=== PATIENT | male | born 1960 | race Caucasian/White ===

== ENCOUNTER 2019-12-07 18:52 | Inpatient (IN) | payer MEDICAID ==
[~2019-12-07] VITALS: Ht 182.9 cm; Wt 129.7 kg
[2019-12-07 18:52] VITALS: BP 90/59
--- NOTE | 2019-12-07 18:52 | NUR ---
TACOS ROSARIO FROM [facility] [place], TRANSFERRED TO BED VIA GURNEY
[2019-12-07] MEDS ORDERED: NACL 0.9% 1,000 ML IV ONE (19:00)
[2019-12-07] MEDS ORDERED: PIPERACILLIN/TAZOBACTAM 4.5 GM in DEXTROSE 5% 100 ML IV ONE (19:00)
[2019-12-07] MEDS ORDERED: VANCOMYCIN 1,000 MG in DEXTROSE 5% 250 ML IV ONE (19:00)
--- NOTE | 2019-12-07 19:05 | NUR ---
URINE COLLECTED VIA MEADOWS CATHETER FROM FACILITY
--- NOTE | 2019-12-07 19:06 | NUR ---
59 Y/O M MARLENE FROM [facility] FOR LOW B/P 54/31 AT FACILITY. B/P IS UP TO 67/32 IN THE ED. PT ON VENT, HAS MEADOWS IN PLACE DRAINING MONI COLORED URINE, GTUBE IN PLACE. PT ALERT WITH EYES OPEN, AT HIS NORMAL BASELINE. RT IN ROOM ASSISTING PT WITH VENT. LESTER
--- NOTE | 2019-12-07 19:09 | NUR ---
RADIOLOGY AT BEDSIDE PERFORMING ORDERED TEST.
[2019-12-07 19:21] LABS: BASOPHILS # (AUTO) 0.1 K/uL (0.00-0.22); BASOPHILS % (AUTO) 0.9 % (0.0-2.0); EOSINOPHILS # (AUTO) 0.2 K/uL (0-0.4); HEMATOCRIT 30.8 % (36-52); HEMOGLOBIN 10.2 g/dL (12.0-18.0); LYMPHOCYTES # (AUTO) 1.3 K/uL (2.0-11.5); LYMPHOCYTES % (AUTO) 16.6 % (20.5-51.1); MEAN CORPUSCULAR HEMOGLOBIN 30 pg (27-31); MEAN CORPUSCULAR HGB CONC 33 g/dL (33-37); MEAN CORPUSCULAR VOLUME 88.8 fL (80-94); MONOCYTES # (AUTO) 0.8 K/uL (0.8-1.0); NEUTROPHILS # (AUTO) 5.3 K/uL (1.8-7.7); NEUTROPHILS % (AUTO) 69.5 % (42.2-75.2); PLATELET COUNT (AUTO) 223 K/uL (140-450); RED BLOOD CELL COUNT(AUTO) 3.47 MIL/uL (4.20-6.10); RED CELL DISTRIBUTION WIDTH 14.7 % (11.6-13.7); WHITE BLOOD COUNT (AUTO) 7.6 K/uL (4.8-10.8)
[2019-12-07] MEDS ORDERED: PIPERACILLIN/TAZOBACTAM 2.25 GM VIAL IV ONE (19:22)
--- NOTE | 2019-12-07 19:40 | NUR ---
Dr. Beatty examining patient.
[2019-12-07 19:46] LABS: ALBUMIN 2.4 g/dL (3.4-5.0); ANION GAP 13.5 (8-16); CARBON DIOXIDE 30.6 mmol/L (21-32); CREATININE 0.8 mg/dL (0.6-1.3); POTASSIUM 4.1 mmol/L (3.5-5.1); TOTAL BILIRUBIN 0.4 mg/dL (0.0-1.0)
[2019-12-07 19:49] LABS: PROTHROMBIN TIME 11.5 secs (10.8-13.4)
[2019-12-07 19:58] LABS: CREATINE KINASE MB 2.5 ng/mL (0-3.6)
[2019-12-07] MEDS ORDERED: MORPHINE SULFATE 4 MG/ML SYR IVP ONE (20:10)
[2019-12-07] MEDS ORDERED: OMEP20TC12 PO ×2 (20:12→22:21)
[2019-12-07] MEDS ORDERED: ATI.5 PO (20:13)
[2019-12-07] MEDS ORDERED: LANTUS SUBQ ×2 (20:15→22:33)
[2019-12-07] MEDS ORDERED: TEMA15CA24 PO (20:15)
[2019-12-07] MEDS ORDERED: ONDANSETRON 4 MG/2 ML VIAL IM/IVP PRN (20:20)
[2019-12-07] MEDS ORDERED: LORazepam 2 MG/ML VIAL IM/IVP PRN (20:20)
[2019-12-07] MEDS ORDERED: ZOLPIDEM 5 MG TAB PO PRN (20:20)
[2019-12-07] MEDS ORDERED: NACL 0.9% 1,000 ML IV SCH (20:20)
[2019-12-07] MEDS ORDERED: ACETAMINOPHEN 325 MG TAB PO PRN (20:20)
[2019-12-07] MEDS ORDERED: DOCUSATE SODIUM 100 MG GELCAP PO PRN (20:20)
[2019-12-07 20:27] VITALS: BP 86/58
[2019-12-07] MEDS ORDERED: LORazepam 0.5 MG TAB PO PRN (20:30)
[2019-12-07] MEDS ORDERED: ACETAMINOPHEN 650 MG SUPP RC PRN (20:30)
--- NOTE | 2019-12-07 20:32 | NUR ---
received settings from cec of simv vc 15,450,ps 16. vent is plugged into red outlet,bmv at head of bed. alarm is audible and workin. pt is alert and cooperative and follow commands. portex 8 is intact and secured. sx out copious amount of thick yellow secretions. daughter at bedside. will cont to monitor
[2019-12-07 20:52] LABS: CHOL/HDL RATIO 4.1 (1-4.5); FREE T4 (FREE THYROXINE) 1.2 ng/dL (0.76-1.46); MAGNESIUM 2.1 mg/dL (1.8-2.4); PHOSPHORUS 4.5 mg/dL (2.5-4.9); THYROID STIMULATING HORMONE 4.58 uIU/mL (0.34-3.74)
[2019-12-07 20:52] LABS: APPEARANCE,URINE CLOUDY (CLEAR); BILIRUBIN,URINE NEGATIVE (NEGATIVE); BLOOD, URINE 1+ (NEGATIVE); COLOR,URINE YELLOW (YELLOW); LEUKOCYTE ESTERASE ,URINE 2+ (NEGATIVE); NITRITE, URINE NEGATIVE (NEGATIVE); PH,URINE 6.5 (5.0-9.0); UGLUCOSE NEGATIVE (NEGATIVE)
[2019-12-07 21:00] LABS: BARBITURATE, URINE NEG. ng/ml (NEG <=200); BENZODIAZEPINE, URINE POS. ng/mL (NEG <=200); CANNABINOID, URINE NEG. ng/mL (NEG <=50); COCAINE, URINE NEG. ng/mL (NEG <=300); OPIATE, URINE NEG. ng/mL (NEG <=2000); PHENCYCLIDINE SCREEN,URINE NEG. ng/mL (NEG <=25)
[2019-12-07] MEDS ORDERED: TEMAZEPAM 15 MG CAP PO SCH (21:00)
[2019-12-07] MEDS ORDERED: NON-FORMULARY ITEM (Omeprazole (Omeprazole) 20 MG) PO SCH (21:00)
--- NOTE | 2019-12-07 21:00 | NUR ---
Note manuel in EDM - 12/07/19 at 2116 by RICH PT ADMITTED TO [facility] RM [facility]. TRANSFERRED VIA GURNEY; STABLE CONDITION. REPORT GIVEN TO PAULINE KOHLI; TRANSFER OF CARE AT THIS TIME.
--- NOTE | 2019-12-07 21:00 | NUR ---
PT ADMITTED TO [facility] RM 108B. TRANSFERRED VIA GURPESHTIGO; STABLE CONDITION. REPORT GIVEN TO PAULINE KOHLI; TRANSFER OF CARE AT THIS TIME.
--- NOTE | 2019-12-07 21:05 | NUR ---
pt transferred. no distress noted
[2019-12-07] MEDS ORDERED: NACL 0.9% 2,500 ML IV ONE (21:10)
[2019-12-07] MEDS ORDERED: NACL 0.9% 250 ML IV ONE (21:10)
[2019-12-07 21:12] LABS: WBC,URINE 80-100 /HPF (0-5)
[2019-12-07 21:13] LABS: RBC,URINE 11-20 (MOD) /HPF (0-5)
[2019-12-07 21:14] LABS: CALCIUM OXALATE CRYSTALS,UR 0-10 /HPF (None Seen)
--- NOTE | 2019-12-07 21:15 | NUR ---
PT ARRIVED AT UNIT VIA GURNEY, TRANSFERRED PT TO BED, TOLERATED WELL, NO DISTRESS NOTED, RECEIVED BEDSIDE REPORT FROM VOCATIONAL REHABILITATION COUNSELOR SAMIRA, IV TO L WRIST 20G, PATENT INTACT, SL, PT ON TRACH TO VENT, NO SOB NOTED, MEADOWS CATH IN PLACE DRAINING YELLOW URINE WITH SEDIMENTS, INITIAL ASSESSMENT DONE, ALL SAFETY PRECAUTION MET, MRSA SWAB TAKEN, CALL LIGHT WITHIN REACH, WILL CONTINUE TO MONITOR.
[2019-12-07 21:30] VITALS: BP 102/65
[2019-12-07] MEDS ORDERED: MORPHINE SULFATE 4 MG/ML SYR IVP SCH (22:00)
[2019-12-07] MEDS ORDERED: VANCOMYCIN 1,000 MG VIAL ONE (22:20)
[2019-12-07] MEDS ORDERED: LOSA50TA66 GT (22:21)
[2019-12-07] MEDS ORDERED: MOM GT (22:21)
[2019-12-07] MEDS ORDERED: ZINC220C28 GT (22:21)
[2019-12-07] MEDS ORDERED: ASCO500T45 GT (22:21)
[2019-12-07] MEDS ORDERED: MULT-153 GT (22:21)
[2019-12-07] MEDS ORDERED: L. A1CAP GT (22:21)
[2019-12-07] MEDS ORDERED: TAMS0.4C96 GT (22:21)
[2019-12-07] MEDS ORDERED: DOCU-299 GT (22:21)
[2019-12-07] MEDS ORDERED: ATOR40TA GT (22:21)
[2019-12-07] MEDS ORDERED: SCOP1PAT TD (22:21)
[2019-12-07] MEDS ORDERED: APIX5TAB GT (22:21)
[2019-12-07] MEDS ORDERED: HYDR100T79 GT (22:21)
[2019-12-07] MEDS ORDERED: TYL650S RC (22:21)
[2019-12-07] MEDS ORDERED: CRAN450C GT (22:21)
[2019-12-07] MEDS ORDERED: KEP500L GT (22:21)
[2019-12-07] MEDS ORDERED: SLIDE SUBQ (22:21)
[2019-12-07] MEDS ORDERED: BISA10SU27 RC (22:21)
[2019-12-07] MEDS ORDERED: METO25TA14 GT (22:21)
[2019-12-07] MEDS ORDERED: BISACODYL 10 MG SUPP RC PRN (22:39)
[2019-12-07] MEDS ORDERED: DEXTROSE 50% 50 ML SYR IVP PRN (22:50)
--- NOTE | 2019-12-07 22:51 | NUR ---
DUE MEDICATION VANCOMYCIN, AND IV BOLUS PER DR ORDER ADMINISTERED, PT TOLERATED WELL, NO DISTRESS NOTED, CALL LIGHT WITHIN REACH, WILL CONTINUE TO MONITOR.
[2019-12-07] MEDS ORDERED: cefTRIAXone 1,000 MG VIAL ONE (22:59)
[2019-12-07] MEDS ORDERED: TEMAZEPAM 15 MG CAP ONE (23:01)
[2019-12-07] MEDS: levETIRAcetam 100 MG/ML ORASYR GT SCH (23:07)
[2019-12-07] MEDS: TAMSULOSIN 0.4 MG CAP GT SCH (23:07)
[2019-12-07] MEDS: ATORVASTATIN 20 MG TAB GT SCH (23:07)
--- NOTE | 2019-12-07 23:07 | NUR ---
MEDICATION ADMINISTERED, PER DR ORDER, PT TOLERATED WELL, NO DISTRESS NOTED, CALL LIGHT WITHIN REACH, WILL CONTINUE TO MONITOR
[2019-12-07] MEDS ORDERED: CRUSHER, PILL MC ONE (23:09)
[2019-12-07] MEDS: APIXABAN 2.5 MG TAB GT SCH (23:09)
[2019-12-08] VITALS: BP 108/60
[2019-12-08] MEDS: DEXT 5% /NACL 0.9% 1,000 ML IV SCH ×3 (00:34→16:19)
--- NOTE | 2019-12-08 00:34 | NUR ---
IV ABX ROCEPHINE ADMINISTERED, PT TOLERATED WELL, NO DISTRESS NOTED, CALL LIGHT WITHIN REACH, WILL CONTINUE TO MONITOR.
[2019-12-08] MEDS: MORPHINE SULFATE 2 MG/ML SYR IVP PRN ×3 (00:44→20:37)
--- NOTE | 2019-12-08 00:44 | NUR ---
FLACC 9, PT ALSO INDICATED THAT HE IS IN PAIN WHEN ASKED, PAIN MEDICATION PER DR ORDERED ADMINISTERED, PT TOLERATED WELL, NO DISTRESS NOTED, CALL LIGHT WITHIN REACH, WILL CONTINUE TO MONITOR.
--- NOTE | 2019-12-08 02:37 | NUR ---
LASIX PER DR ORDER ADMINISTERED, PT TOLERATED WELL, NO DISTRESS NOTED, CALL LIGHT WITHIN REACH, WILL CONTINUE TO MONITOR.
[2019-12-08] MEDS ORDERED: FUROSEMIDE 20 MG/2 ML VIAL IVP SCH (03:00)
[2019-12-08 04:00] VITALS: BP 95/71
--- NOTE | 2019-12-08 04:34 | NUR ---
CHANGE AND CLEANED PT, TOLERATED WELL, NO DISTRESS NOTED, CALL LIGHT WITHIN REACH, WILL CONTINUE TO MONITOR.
[2019-12-08] MEDS: BLOOD GLUCOSE MONITORING 1 DEV DEV FS SCH ×4 (05:40→20:34)
[2019-12-08 06:55] LABS: BASOPHILS # (AUTO) 0.1 K/uL (0.00-0.22); BASOPHILS % (AUTO) 0.9 % (0.0-2.0); EOSINOPHILS # (AUTO) 0.2 K/uL (0-0.4); EOSINOPHILS % (AUTO) 3.2 % (0.0-4.0); HEMATOCRIT 26.6 % (36-52); LYMPHOCYTES # (AUTO) 1.3 K/uL (2.0-11.5); MEAN CORPUSCULAR HEMOGLOBIN 30 pg (27-31); MEAN CORPUSCULAR HGB CONC 34 g/dL (33-37); MEAN CORPUSCULAR VOLUME 88.9 fL (80-94); MONOCYTES # (AUTO) 0.7 K/uL (0.8-1.0); MONOCYTES % (AUTO) 10.1 % (1.7-9.3); NEUTROPHILS # (AUTO) 4.8 K/uL (1.8-7.7); NEUTROPHILS % (AUTO) 67.8 % (42.2-75.2); PLATELET COUNT (AUTO) 183 K/uL (140-450); RED BLOOD CELL COUNT(AUTO) 2.99 MIL/uL (4.20-6.10); RED CELL DISTRIBUTION WIDTH 14.9 % (11.6-13.7)
[2019-12-08 06:59] LABS: ANION GAP 9.8 (8-16); CARBON DIOXIDE 29.7 mmol/L (21-32); CREATININE 0.7 mg/dL (0.6-1.3); POTASSIUM 3.5 mmol/L (3.5-5.1)
[2019-12-08 07:00] LABS: MAGNESIUM 1.9 mg/dL (1.8-2.4); PHOSPHORUS 3.3 mg/dL (2.5-4.9)
--- NOTE | 2019-12-08 07:25 | NUR ---
ENDORSED PT TO DAY SHIFT NURSE REFUGIO KOHLI, PT STABLE, NO DISTRESS NOTED, CALL LIGHT WITHIN REACH.
--- NOTE | 2019-12-08 07:30 | NUR ---
RECEIOVED PT FROM, PAY STATION COLLECTOR NURSE, PAULINE, PT IS AWAKE AND ON A TRACH TO VENT RATE 12, FIO2 35%, TV 450M, FLOW RATE 20. SIDE RAILS UP. CALL LIGHT WITHIN REACH. FALL AND SAFETY PRECAUTION INITIATED. BED ALARM ON. O2 SATURATION AT 99%. MEADOWS CATHETER IN PLACE. PERIPHERAL LINE ON THE LEFT HAND 20G IV D5NS AT 130ML/HR INFUSING. PT. NPO EXCEPT MEDS, GTUBE IN PLACE AND INTACT. NO SIGN OF DISTRESS. CONTINUE TO MONITOR.
[2019-12-08 08:00] VITALS: BP 118/75
--- NOTE | 2019-12-08 08:39 | NUR ---
PATIENT HAS BEEN SCREENED AND CATEGORIZED HIGH NUTRITION RISK. PATIENT WILL BE SEEN WITHIN 1-2 DAYS OF ADMISSION. 12/08/19-12/09/[address]
[2019-12-08] MEDS: DOCUSATE SODIUM 100 MG GELCAP PO SCH ×2 (09:08→20:35)
[2019-12-08] MEDS: levETIRAcetam 100 MG/ML ORASYR GT SCH ×2 (09:08→20:34)
[2019-12-08] MEDS: MAGNESIUM HYDROXIDE 2400 MG/30 ML UDC GT PRN (09:08)
[2019-12-08] MEDS: APIXABAN 2.5 MG TAB GT SCH ×2 (09:11→20:35)
[2019-12-08] MEDS: LACTOBACILLUS RHAMNOSUS GG 1 EACH CAP GT SCH (09:12)
--- NOTE | 2019-12-08 09:12 | NUR ---
PATIENT IS AWAKE. CHECKED GTUBE PLACEMENT, INTACT AND NO RESIDUAL NOTED. SCHEDULED MORNING MEDICATION GIVEN VIA GTUBE. NO SIGN DISTRESS. CONTINUE TO MONITOR.
[2019-12-08] MEDS: PANTOPRAZOLE 40 MG TABEC PO SCH (09:13)
[2019-12-08 12:00] VITALS: BP 109/72
--- NOTE | 2019-12-08 12:06 | NUR ---
BLOOD GLUCOSE CHECK DONE TO PT NOW AND RESULT IS 126. NO INSULIN COVERAGE. WILL MONITOR PT.
--- NOTE | 2019-12-08 12:08 | NUR ---
CHEST X-RAY WAS BEING DONE TO PT NOW. NO SIGN OF DISTRESS NOTED.
[2019-12-08] MEDS ORDERED: ACETAMINOPHEN 650 MG SUPP RC PRN (12:13)
--- NOTE | 2019-12-08 12:21 | NUR ---
PT'S FAMILY IS ON THE BEDSIDE NOW.
--- NOTE | 2019-12-08 12:23 | NUR ---
PT WAS GIVEN MORPHINE FOR C/O PAIN OF 7/10 EXPRESSED BY MOUTHING AND GRIMACING. WILL RE-ASSESS PAIN AND MONITOR PT.
--- NOTE | 2019-12-08 12:53 | NUR ---
WOUND CARE EVALUATION NOTE: REASON FOR EVALUATION: LOW TIM SCALE AND LEFT EAR WOUND SKIN ASSESSMENT DONE WITH THIS 59 Y/O MALE PT ADMITTED FROM [facility] WITH INITIAL DX HYPOTENSION. PAST MEDICAL HX INCLUDES HTN, DM, TRACH, CVA AND G-TUBE. ALL ABOVE INFORMATION OBTAINED FROM ADMISSION H&P. PT IS AWAKE. EYES OPEN WHEN TALK TO HIM. SKIN IS WARM AND DRY, BLE HAIR GROWTH, NO EDEMA. DORSAL PEDAL PULSES PRESENT AND NORMAL. CAPILLARY REFILLED < 2 SEC. F/C PATENT WITH SMALL AMOUNT YELLOW COLOR URINE OUT PUT OBSERVED. PLAN OF CARE DISCUSSED WITH PRIMARY RN. AND DR. PHAM. INTEGUMENTARY: -TRACH SITE MONSTER STOMA SKIN DRY AND CLEAN. SKIN INTACT. -GT SITE MONSTER STOMA WITH SKIN INTACT. -MOISTURE ASSOCIATE DERMATITIS (IAD) TO: B/L GROINS AND BUTTOCKS SKIN REDNESS INTACT -LEFT EAR UN-STAGEABLE PRESSURE ULCER 0.8X0.6CM 90% WOUND BED COVERED WITH SOFE SCAB AND 10 % WOUND BED WITH RED TISSUE WITH SUPERFICIAL DEPTH, WOUND EDGE SEEPING OUT SMALL AMOUNT OF PURULENT DRAINAGE, NO ODOR, MONSTER WOUND SKIN INTACT WITH NO INDURATION RECOMMENDATIONS: -CULTURE TO LEFT EAR -APPLY HYDRAGUARD TO R/L GROINS AND BUTTOCKS BID AND PRN IF SOILING -CLEANSE LEFT EAT WITH WOUND CLEANING SOLUTION, APPLY BACITRACIN OINT AND COVERED WITH DRY DRESSING QD. OFFLOADING LEFT EAR -OFFLOAD BILATERAL HEELS BY PLACING PILLOWS UNDER CALVES UNLESS OTHERWISE CONTRAINDICATED -PRESSURE REDISTRIBUTION SURFACE THERAPY -TURN AND REPOSITION Q2H, OFFLOAD SACRALCOCCYX AND BUTTOCKS BY TURNING RIGHT AND LEFT -CONTINUE TO FOLLOW RD RECOMMENDATIONS ALL ABOVE RECOMMENDATIONS DISCUSSED WITH PRIMARY RN. WILL FOLLOW UP PT Q7-10 DAYS. PLEASE CONTACT WOUND CARE NURSE FOR ANY QUESTION AND CHANGE OF WOUND CONDITION.
--- NOTE | 2019-12-08 12:54 | NUR ---
12/08/19 RD INITIAL ASSESSMENT COMPLETED PLEASE REFER TO NUTRITION ASSESSMENT UNDER CARE ACTIVITY FOR ESTIMATED NUTRITIONAL NEEDS. 1. RECOMMEND VITAL AF 1.2 @ 65 ML/HR X 24 HR WHEN PT IS MEDICALLY STABLE TO START ENTERAL NUTRITION -THIS WILL PROVIDE 1560 ML OF VOLUME, 1872 KCAL AND 117 GM OF PROTEIN WHICH MEETS 100% OF ESTIMATED NEEDS 2. RECOMMEND FREE WATER FLUSH OF 100 ML Q4H 3. PENDING RECOMMENDATIONS FOR VITAMIN/MINERAL SUPPLMENTS FOR WOUND(S) 4. RD TO FOLLOW-UP 2-3 DAYS, HIGH RISK KENISHA ROJAS RD Addendum: 12/08/19 at [address] *REVISED* 3. RECOMMEND FAWN BID FOR WOUND HEALING
--- NOTE | 2019-12-08 13:56 | NUR ---
Cad Cam Programmer Note: Basic Screen: Yes High Risk DC Screen Yes Name: GASPER Blanton Relationship: FAMILY Pre-Admission Living Arrangements: SNF Prior ADL Total/Dependent Current Home Health Name/Tel: N/A Current DME/02 Name/Tel: [facility] Current Hospice Name/Tel: N/A Current Dialysis Name/Tel: N/A Healthcare Decision Maker: Next of Kin Other: GASPER E[place]TH Advance Directive No Physician Orders for Life Sustaining Treatment Form No Patient/Family Have Educational Needs No Discipline: Case Mgt/Social Svcs Tentative Discharge Plan/Destination: SNF/ECF Will require assistance post discharge: No Referred to Extermination Inspector: No Tentative Discharge Plan Summary: Patient is a 59-year-old male admitted for hypotension. Patient has PMHX of stroke w/ subsequent quadraplegia, HTN, DM, dysphagia w/ gtube. Patient was admitted from [facility]. SW contacted Kena from [facility] [phone]. Per Kena, patient is a sub-acute patient and is currently on a bed hold. Kena stated that patient requires total assistance for ADLs and is non ambulatory. Patient is not alert/oriented at baseline. Tentative discharge plan is to return to [facility] at discharge. No further needs identified. Signature: CHIDI Cheung Date: Dec 08, 2019 Time: 13:54
--- NOTE | 2019-12-08 13:57 | NUR ---
* REVISED 3. RECOMMEND FAWN BID FOR WOUND HEALING Addendum: 12/08/19 at [address] FOR RD RECOMMENDATIONS
[2019-12-08] MEDS: HYDROcodone/APAP 5/325 MG 1 TAB TAB PO PRN (15:11)
[2019-12-08] MEDS: BACITRACIN OINT 15000 UNITS/30 GM TUBE TP SCH (15:12)
[2019-12-08] MEDS: GAUZE TP SCH (15:13)
[2019-12-08] MEDS: HYDRAGUARD CREAM TP SCH (15:13)
[2019-12-08 16:00] VITALS: BP 109/67
--- NOTE | 2019-12-08 16:23 | NUR ---
PT'S BLOOD GLUCOSE WAS CHECKED AND IS 124 AND NO INSULIN COVERAGE NEEDED, A NEW BAG OF IVF D5NS WAS STARTED TO PT NOW. NO SIGN OF DISTRESS NOTED AND WILL MONITOR PT.
--- NOTE | 2019-12-08 16:45 | NUR ---
G-TUBE FEEDING WAS STARTED TO PT WITH CONTINUOUS FEEDING OF VITAL AF 1.2 AT 10ML/HR, WITH WATER FLUSHING OF [id number] TO INCREASE FEEDING RATE 1OML Q6H TO MEET THE GOAL OF OF 65ML/HR.
--- NOTE | 2019-12-08 17:46 | NUR ---
CONTINUED TO MOMITOR PT ON VENT WITH SETTINGS CHARTED BREATH SOUNDS PRESENT BILATY SXN PT WITH MIN TO MONERATE OFF WHITE SECS TRACH SITE SECURE AMBU BAG AT BEDSIDE VENT PLUGGED INTO RED OUTLET
--- NOTE | 2019-12-08 19:13 | NUR ---
ENDORSED PT TO CHIEF MEDICAL TECHNOLOGIST NURSE THOMPSON FOR CONTINUITY OF CARE.
--- NOTE | 2019-12-08 19:15 | NUR ---
REPORT RECEIVED FROM AM NURSE AT BEDSIDE. PT IN STABLE CONDITION. AAOX1-2. INTRODUCED SELF TO PT. BOARD UPDATED. NO COMPLAINTS OF PAIN. NO SOB ON TRACH TO VENT. AFEBRILE. PT IS BEDBOUND. PT HAS MEADOWS. PT ON FEEDING VITAL AF 1.2@10ML/HR WITH GOAL OF 65ML/HR INCREASING BY 10ML/HR Q6H WITH 100ML H20 FLUSH Q4H. VENT SETTINGS A/C FIO2@30%, VT 450, RR 14, PEEP 5. IV SITE L WRIST 20G RUNNING D5NS@130ML/HR PATENT AND INTACT. SKIN WARM, DRY, AND NOT INTACT DUE TO REDNESS ON THE BUTTOCKS, WOUNDS AT THE PERINEUM, AND ON THE LEFT EAR. BED LOCKED IN LOW POSITION. CALL COSME WITHIN REACH. SAFETY PRECAUTION IN PLACE. ALL NEEDS MET AT THIS TIME.
[2019-12-08 20:00] VITALS: BP 125/78
[2019-12-08] MEDS: TAMSULOSIN 0.4 MG CAP GT SCH (20:34)
[2019-12-08] MEDS: ATORVASTATIN 20 MG TAB GT SCH (20:35)
--- NOTE | 2019-12-08 20:35 | NUR ---
ELIQUIS, FLOMAX, KEPPRA, LIPITOR, AND COLACE GIVEN THROUGH [employer]. LANTUS GIVEN SUBQ FOR BS 137.
[2019-12-08] MEDS: INSULIN LANTUS 100 UNITS/ML 10 ML VIAL SUBQ SCH (20:36)
--- NOTE | 2019-12-08 20:37 | NUR ---
MORPHINE GIVEN FOR 7/10 GENERALIZED PAIN. PT TOLERATED WELL.
--- NOTE | 2019-12-08 20:50 | NUR ---
ORAL CARE GIVEN.
--- NOTE | 2019-12-08 21:00 | NUR ---
CORNELIA MONSALVE AND RUNNING.
--- NOTE | 2019-12-08 23:20 | NUR ---
PT LAYING IN BED TRYING TO SLEEP. NO S/S OF DISTRESS NOTED. WILL CONTINUE TO MONITOR.
[2019-12-09] VITALS: BP 121/75
[2019-12-09] MEDS: DEXT 5% /NACL 0.9% 1,000 ML IV SCH ×3 (00:09→13:25)
[2019-12-09] MEDS: HYDRAGUARD CREAM TP SCH ×2 (01:02→12:33)
[2019-12-09 04:00] VITALS: BP 151/86
[2019-12-09] MEDS: MORPHINE SULFATE 2 MG/ML SYR IVP PRN (05:04)
--- NOTE | 2019-12-09 05:04 | NUR ---
MORPHINE GIVEN FOR 7/10 GENERALIZED PAIN. PT TOLERATED WELL.
[2019-12-09] MEDS: BLOOD GLUCOSE MONITORING 1 DEV DEV FS SCH ×4 (05:53→20:51)
--- NOTE | 2019-12-09 05:53 | NUR ---
BS 150. NO INSULIN COVERAGE NEEDED.
--- NOTE | 2019-12-09 06:50 | NUR ---
PT SLEEPING COMFORTABLY BUT AROUSABLE. PT IN STABLE CONDITION.
--- NOTE | 2019-12-09 07:05 | NUR ---
RECEIVED PT FROM RECORDIST NURSETHOMPSON, PT IS AWAKE, ON A TRACH TO VENT, SIDE RAILS ARE UP AND CALL LIGHT WITHIN REACH, SAFETY AND FALL PRECAUTION INITIATED, BED IN LOW AND BED ALARM ACTIVATED, PERIPHERAL LINE ON THE LEFT WRIST G. 20 WITH D5NS INFUSING AT 130ML/HR, INTACT, LEFT EAR OPEN WOUND NOTED AND WAS REINFORCED WITH DRESSING, MEADOWS CATHETER IN PLACE AND NO SIGN OF DISTRESS NOTED. WILL CONTINUE TO BE MONITORED.
[2019-12-09 07:16] LABS: BASOPHILS % (AUTO) 0.7 % (0.0-2.0); EOSINOPHILS # (AUTO) 0.3 K/uL (0-0.4); EOSINOPHILS % (AUTO) 3.9 % (0.0-4.0); HEMOGLOBIN 8.4 g/dL (12.0-18.0); LYMPHOCYTES # (AUTO) 1.1 K/uL (2.0-11.5); LYMPHOCYTES % (AUTO) 15.8 % (20.5-51.1); MEAN CORPUSCULAR HEMOGLOBIN 30 pg (27-31); MEAN CORPUSCULAR HGB CONC 33 g/dL (33-37); MEAN CORPUSCULAR VOLUME 89.3 fL (80-94); MONOCYTES # (AUTO) 0.6 K/uL (0.8-1.0); MONOCYTES % (AUTO) 8.5 % (1.7-9.3); NEUTROPHILS # (AUTO) 4.8 K/uL (1.8-7.7); NEUTROPHILS % (AUTO) 71.1 % (42.2-75.2); PLATELET COUNT (AUTO) 187 K/uL (140-450); RED CELL DISTRIBUTION WIDTH 14.8 % (11.6-13.7); WHITE BLOOD COUNT (AUTO) 6.8 K/uL (4.8-10.8)
[2019-12-09 07:25] LABS: ANION GAP 7.9 (8-16); CARBON DIOXIDE 29.5 mmol/L (21-32); CREATININE 0.7 mg/dL (0.6-1.3); POTASSIUM 3.4 mmol/L (3.5-5.1)
[2019-12-09 07:41] LABS: MAGNESIUM 1.9 mg/dL (1.8-2.4); PHOSPHORUS 2.2 mg/dL (2.5-4.9)
--- NOTE | 2019-12-09 07:47 | NUR ---
RECIVED PT ON VENT WITH SETTINGS CHARTED BREATH SOUNDS PRESENT BILAT SXN PT WITH MIN AMT OFF WHIT SECS AMBU BAG AT BEDSIDE VENA PLUGGED INTP RED OUTLET WILL CONTINUE TO MONITOR PT ON VENT
[2019-12-09 08:00] VITALS: BP 126/86
--- NOTE | 2019-12-09 09:00 | NUR ---
0900 PLACED PT ON CPAP 5 PS 10 WILL CONTINUE TO MONITOR
--- NOTE | 2019-12-09 09:03 | NUR ---
PT WAS PLACED ON CPAP 5 PS 10 NOW BY RT , WILL MONITOR PT.
[2019-12-09] MEDS: levETIRAcetam 100 MG/ML ORASYR GT SCH ×2 (09:11→20:54)
[2019-12-09] MEDS: APIXABAN 2.5 MG TAB GT SCH ×2 (09:19→20:55)
--- NOTE | 2019-12-09 09:19 | NUR ---
PT WAS GIVEN THE AM SCHEDULED MEDICATIONS NOW, CRUSHED AND VIA G- TUBE AND NO RESIDUAL NOTED. WILL MONITOR PT.
[2019-12-09] MEDS: LACTOBACILLUS RHAMNOSUS GG 1 EACH CAP GT SCH (09:21)
[2019-12-09] MEDS: METOPROLOL 25 MG TAB PO SCH ×2 (09:21→20:54)
[2019-12-09] MEDS: DOCUSATE SODIUM 100 MG GELCAP PO SCH ×2 (09:22→20:52)
[2019-12-09] MEDS: MAGNESIUM HYDROXIDE 2400 MG/30 ML UDC GT PRN (09:22)
[2019-12-09] MEDS: PANTOPRAZOLE 40 MG TABEC PO SCH (09:22)
[2019-12-09] MEDS: BACITRACIN OINT 15000 UNITS/30 GM TUBE TP SCH (09:23)
[2019-12-09] MEDS: KCL 20 MEQ/WATER INJ PREMIX 200 ML IV PRN ×2 (09:51→12:31)
--- NOTE | 2019-12-09 10:40 | NUR ---
PT WAS REPOSITIONED AND WOUND CARE AND ASSESSMENT DONE. WILL MONITOR PT.
--- NOTE | 2019-12-09 11:35 | NUR ---
PLACED PT BACK ON AC ABG RESULTS CALLED INTO DR MICHELE
--- NOTE | 2019-12-09 11:38 | NUR ---
BLOOD GLUCOSE CHECK DONE TO PT NOW AND RESULT IS 138 AND NO INSULIN COVERAGE NEEDED.
[2019-12-09 12:00] VITALS: BP 126/75
[2019-12-09] MEDS: SODIUM PHOS / POTASSIUM PHOS 1 PKT PDR PO SCH ×2 (12:31→17:01)
--- NOTE | 2019-12-09 12:31 | NUR ---
PT WAS GIVEN MEDICATION VIA G-TUBE AND IVF SECOND BAG OF POTASSIUM IV, WILL MONITOR PT.
[2019-12-09] MEDS: GAUZE TP SCH (12:32)
[2019-12-09] MEDS: HYDROcodone/APAP 5/325 MG 1 TAB TAB PO PRN ×2 (12:47→20:51)
--- NOTE | 2019-12-09 14:00 | NUR ---
PT WAS REPOSITIONED NOW, NO SIGN OF DISTRESS NOTED AND WILL MONITOR PT.
--- NOTE | 2019-12-09 15:56 | NUR ---
RT INFORMED THAT THEY DID A CPAP TRIAL FOR AN HOUR TO THE PT, WILL MONITOR .
[2019-12-09 16:00] VITALS: BP 131/77
--- NOTE | 2019-12-09 16:13 | NUR ---
DISCHARGE PLANNING: A 59 Y/O MALE PATIENT FROM [facility], WHO CAM IN DUE TO LOW BLOOD PRESSURE. 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 INITIAL DIAGNOSIS OF SEPSIS. CURRENT LABS INCLUDE WBC 6.8, H/H 8.4/25, NA/K 142/3.4, BUN/CREA 19/0.7. UDS SHOWED (+) BENZO. NO MRSA. BLOOD, URINE, SPUTUM AND WOUND C/S PENDING. PULMO CONSULT IN PLACE. DC PLAN BACK TO [facility] ONCE STABLE. Addendum: 12/10/19 at 1059 by Batsheva Tolbert CM RECEIVED AN ORDER FOR DC PLAN BACK TO [facility] [place]OMORROW 12/11/2019. CLINICALS FAXED TO [facility]. Addendum: 12/11/19 at 1103 by Елена Wilburn CM DC PLANNING: CALLED [facility] SPOKE WITH SUZANNE ,PER SUZANNE ACCEPTED PATIENT AND CAN GO TO ROOM 23A UNDER THE CARE OF DR PHAM # TO GIVE REPORT [phone] ARRANGED TRANSPORT WITH [facility] WORKER TIME 4 PM .NOTIFIED SPRING KOHLI
--- NOTE | 2019-12-09 17:01 | NUR ---
PT'S BLOOD GLUCOSE WAS CHECKED AND RESULT IS 152, MEDICATION WAS GIVEN VIA G-T UBE, NO RESIDUAL NOTED, WILL MONITOR PT.
--- NOTE | 2019-12-09 17:56 | NUR ---
CONTINUED TO MONITOR PT ON VENT WITH SETTINGS CHARTED BREATH SOUNDS PRESENT BILAT DIMINISHED PT WITH 2 HOURS OF CPAP TRIALS CONNOR WELL AMBU BAG AT BEDSIDE VENT PLUGGED INTO RED OUTLET
--- NOTE | 2019-12-09 19:00 | NUR ---
RECEIVED PT FROM DAY SHIFT ON AC 10,450,+5,35%. VENT PLUGGED INTO RED OUTLET. ALARMS AUDIBLE AND WORKING. BMV AT HEAD OF BED. TRACH IS SECURED AND INTACT. SX SMALL AMOUNT OF THIN WHITE SECRETIONS. WILL CONT TO MONITOR
--- NOTE | 2019-12-09 19:20 | NUR ---
ENDORSED PT TO UNDERPRESSER HAND NURSE FOR CONTINUITY OF CARE
--- NOTE | 2019-12-09 19:21 | NUR ---
REPORT RECEIVED FROM AM NURSE AT BEDSIDE. PT IN STABLE CONDITION. AAOX1-2. INTRODUCED SELF TO PT. BOARD UPDATED. PT HAS COMPLAINTS OF PAIN. WILL MEDICATE. NO SOB ON TRACH TO VENT. VENT SETTINGS A/C FIO2@35%, VT 450, RR 10, PEEP 5. AFEBRILE. PT IS BEDBOUND. PT HAS MEADOWS. TUBE FEEDING VITAL AF 1.2@50ML/HR WITH 100ML H20 FLUSH Q4H. IV SITE L WRIST 20G RUNNING D5NS@20ML/HR PATENT AND INTACT. SKIN WARM, DRY, AND NOT INTACT DUE TO A PRESSURE WOUND ON THE L EAR AND SACRAL REDNESS. BED LOCKED IN LOW POSITION. CALL COSME WITHIN REACH. SAFETY PRECAUTION IN PLACE. ALL NEEDS MET AT THIS TIME.
[2019-12-09 20:00] VITALS: BP 138/83
[2019-12-09] MEDS: ATORVASTATIN 20 MG TAB GT SCH (20:51)
--- NOTE | 2019-12-09 20:51 | NUR ---
ELIQUIS, FLOMAX, KEPPRA, LIPITOR, COLACE, AND LOPRESSOR GIVEN THROUGH [facility]. NORCO GIVEN FOR 6/10 GENERALIZED PAIN. LANTUS GIVEN SUBQ. BS 133. NO HUMALOG COVERAGE NEEDED. PT TOLERATED WELL.
[2019-12-09] MEDS: TAMSULOSIN 0.4 MG CAP GT SCH (20:52)
[2019-12-09] MEDS: INSULIN LANTUS 100 UNITS/ML 10 ML VIAL SUBQ SCH (20:56)
--- NOTE | 2019-12-09 21:01 | NUR ---
CORNELIA MONSALVE AND RUNNING. PT TOLERATING WELL.
--- NOTE | 2019-12-09 22:15 | NUR ---
PT SUCTIONED AND TURNED.
--- NOTE | 2019-12-09 23:45 | NUR ---
PT SLEEPING COMFORTABLY BUT AROUSABLE. NO S/S OF DISTRESS NOTED. SUCTIONED PATIENT DUE TO COPIOUS AMOUNT. PT TOLERATED WELL.
[2019-12-10] VITALS: BP 121/68
[2019-12-10] MEDS: HYDRAGUARD CREAM TP SCH ×2 (01:00→12:25)
[2019-12-10] MEDS: HYDROcodone/APAP 5/325 MG 1 TAB TAB PO PRN ×2 (02:40→13:57)
--- NOTE | 2019-12-10 02:40 | NUR ---
NORCO GIVEN FOR 6/10 GENERALIZED PAIN. PT TOLERATED WELL.
[2019-12-10] MEDS: NACL 0.9% 1,000 ML IV SCH ×2 (02:49→19:25)
[2019-12-10 04:00] VITALS: BP 142/86
--- NOTE | 2019-12-10 04:15 | NUR ---
PT SLEEPING COMFORTABLY BUT AROUSABLE. NO S/S OF DISTRESS NOTED. RESPIRATIONS EVEN, UNLABORED, AND WNL. WILL CONTINUE TO MONITOR.
[2019-12-10] MEDS: BLOOD GLUCOSE MONITORING 1 DEV DEV FS SCH ×4 (05:34→20:36)
--- NOTE | 2019-12-10 05:34 | NUR ---
BS 146. NO INSULIN COVERAGE NEEDED.
[2019-12-10 06:37] LABS: BASOPHILS # (AUTO) 0.1 K/uL (0.00-0.22); BASOPHILS % (AUTO) 0.9 % (0.0-2.0); EOSINOPHILS # (AUTO) 0.2 K/uL (0-0.4); EOSINOPHILS % (AUTO) 3.8 % (0.0-4.0); HEMATOCRIT 26.7 % (36-52); LYMPHOCYTES # (AUTO) 1.4 K/uL (2.0-11.5); LYMPHOCYTES % (AUTO) 21.4 % (20.5-51.1); MEAN CORPUSCULAR HEMOGLOBIN 30 pg (27-31); MEAN CORPUSCULAR HGB CONC 34 g/dL (33-37); MEAN CORPUSCULAR VOLUME 89.1 fL (80-94); MONOCYTES # (AUTO) 0.6 K/uL (0.8-1.0); MONOCYTES % (AUTO) 8.4 % (1.7-9.3); NEUTROPHILS # (AUTO) 4.3 K/uL (1.8-7.7); NEUTROPHILS % (AUTO) 65.5 % (42.2-75.2); PLATELET COUNT (AUTO) 192 K/uL (140-450); RED CELL DISTRIBUTION WIDTH 14.9 % (11.6-13.7); WHITE BLOOD COUNT (AUTO) 6.6 K/uL (4.8-10.8)
--- NOTE | 2019-12-10 06:52 | NUR ---
PT SLEEPING COMFORTABLY BUT AROUSABLE. PT IN STABLE CONDITION.
--- NOTE | 2019-12-10 07:22 | NUR ---
SHIFT REPORT RECEIVED FROM BIOMETRICS CONSULTANT NURSE. PT IS IN BED AWAKE AND RESPONDING. NO DISTRESS NOTED. CALL LIGHT IN REACH.
[2019-12-10 07:29] LABS: ANION GAP 10.3 (8-16); CARBON DIOXIDE 27.4 mmol/L (21-32); CREATININE 0.6 mg/dL (0.6-1.3); POTASSIUM 3.7 mmol/L (3.5-5.1)
[2019-12-10 08:00] VITALS: BP 159/79
[2019-12-10] MEDS: SODIUM PHOS / POTASSIUM PHOS 1 PKT PDR PO SCH ×3 (08:20→16:48)
[2019-12-10] MEDS: levETIRAcetam 100 MG/ML ORASYR GT SCH ×2 (08:20→20:36)
[2019-12-10] MEDS: DOCUSATE SODIUM 100 MG GELCAP PO SCH ×2 (08:21→20:38)
[2019-12-10] MEDS: LACTOBACILLUS RHAMNOSUS GG 1 EACH CAP GT SCH (08:21)
[2019-12-10] MEDS: METOPROLOL 25 MG TAB PO SCH ×2 (08:21→20:38)
[2019-12-10] MEDS: PANTOPRAZOLE 40 MG TABEC PO SCH (08:21)
[2019-12-10] MEDS: MAGNESIUM HYDROXIDE 2400 MG/30 ML UDC GT PRN (08:22)
[2019-12-10] MEDS: APIXABAN 2.5 MG TAB GT SCH ×2 (08:24→20:39)
[2019-12-10] MEDS ORDERED: SCOPOLAMINE 1.5 MG/72 HR PATCH TD SCH (09:00)
[2019-12-10] MEDS ORDERED: FLUCONAZOLE 100 MG TAB PO SCH (09:00)
--- NOTE | 2019-12-10 09:30 | NUR ---
PT IS IN BED IN STABLE CONDITION. NO DISTRESS NOTED. PT RESPONDED WITH A NODDING. SAYS NO PAIN. SAFETY MEASURES IN CHECK. VENTILATOR IN PLACE. RT ASSESSMENT DONE. CALL LIGHT IN REACH.
[2019-12-10] MEDS: BACITRACIN OINT 15000 UNITS/30 GM TUBE TP SCH (09:54)
--- NOTE | 2019-12-10 11:35 | NUR ---
PT IS IN BED. PT IS AWAKE. NO DISTRESS NOTED. DAUGHTER BY BEDSIDE. G TUBE RESIDUAL THIS MORNING AT 0900 AT 0 ML. ABDOMEN IS SOFT TO TOUCH. CALL LIGHT IN REACH.
[2019-12-10 12:00] VITALS: BP 135/85
[2019-12-10] MEDS: GAUZE TP SCH (12:25)
--- NOTE | 2019-12-10 14:01 | NUR ---
12/10/19 RD FOLLOW UP COMPLETED PLEASE REFER TO NUTRITION ASSESSMENT UNDER CARE ACTIVITY FOR ESTIMATED NUTRITIONAL NEEDS. 1. CONTINUE VITAL AF 1.2 @ 65 ML/HR X 24 HR WHEN PT IS MEDICALLY STABLE TO START ENTERAL NUTRITION -THIS WILL PROVIDE 1560 ML OF VOLUME, 1872 KCAL AND 117 GM OF PROTEIN WHICH MEETS 89% OF ESTIMATED CALORIC NEEDS AND 100% OF PROTEIN NEEDS. 2. CONTINUE FREE WATER FLUSH OF 100 ML Q4H 3. CONTINUE FAWN BID FOR WOUND HEALING 4. RD TO FOLLOW-UP 2-3 DAYS, HIGH RISK BECCA ROJAS RD
--- NOTE | 2019-12-10 15:35 | NUR ---
P.T. NOTES P.T. FLORENCIA COMPLETED; NURSING MAY PERFORM PROM UE/LE ONCE DAILY/ CONNOR WITHIN AVAILABLE RANGE INCORPORATED W/ ADLs. Addendum: 12/10/19 at 1536 by Luna Mendez PT Amended: Links added.
--- NOTE | 2019-12-10 15:49 | NUR ---
PT NOT IN ANY DISTRESS AT THIS TIME. NURSE IS BEDSIDE ALONG WITH FAMILY MEMBER. TRACH SECURE WITH A PATENT AIRWAY. WILL CONTINUE TO MONITOR.
[2019-12-10 16:00] VITALS: BP 125/80
--- NOTE | 2019-12-10 16:00 | NUR ---
PT'S IV ON LEFT HAND WAS INFILTRATED. REMOVED IV LINE. INSERTED IV TO RIGHT WRIST 22G. PT TOLERATED WELL. FAMILY BY BEDSIDE. CALL LIGHT IN REACH.
--- NOTE | 2019-12-10 17:21 | NUR ---
PT IS IN BED WITH NO SIGNS OF DISTRESS. DAUGHTER BY BEDSIDE. CALL LIGHT IN REACH.
--- NOTE | 2019-12-10 17:40 | NUR ---
PT PLACED ON SBT CPAP 5 PS 10 FIO2 35%. ALARMS SET AND FUNCTIONING. TRACH IS SECURE WITH A PATENT AIRWAY. PT NOT IN ANY DISTRESS AT THIS TIME. NURSE AWARE.
--- NOTE | 2019-12-10 19:17 | NUR ---
SHIFT REPORT GIVEN TO CDL A DRIVER NURSE. PT IS IN BED IN STABLE CONDITION. NO DISTRESS NOTED. CALL LIGHT IN REACH.
--- NOTE | 2019-12-10 19:18 | NUR ---
RECEIVED BEDSIDE REPORT FROM DAY SHIFT NURSE. PT IN STABLE CONDITION. INTRODUCED SELF TO PT. BOARD UPDATED. NO SOB ON TRACH TO VENT. VENT SETTINGS A/C FIO2@35%, VT 450, RR 10, PEEP 5. AFEBRILE. PT IS BEDBOUND. PT HAS MEADOWS. TUBE FEEDING VITAL AF 1.2@50ML/HR WITH 100ML H20 FLUSH Q4H. IV SITE R WRIST 22G RUNNING FLUID MD ORDER. PATENT AND INTACT. SKIN WARM, DRY, AND NOT INTACT DUE TO A PRESSURE WOUND ON THE L EAR AND SACRAL REDNESS. BED LOCKED IN LOW POSITION. CALL COSME WITHIN REACH. SAFETY PRECAUTION IN PLACE. ALL NEEDS MET AT THIS TIME.
[2019-12-10 20:00] VITALS: BP 144/87
[2019-12-10] MEDS: TAMSULOSIN 0.4 MG CAP GT SCH (20:37)
[2019-12-10] MEDS: ATORVASTATIN 20 MG TAB GT SCH (20:38)
--- NOTE | 2019-12-10 20:39 | NUR ---
GIVEN ELIQUIS, FLOMAX, KEPPRA, LIPITOR, COLACE, AND METOPROLOL MD ORDERED. PT TOLERATED WELL. BS CHECKED, 134 NO HUMALOG COVERAGE NEEDED.
--- NOTE | 2019-12-10 20:45 | NUR ---
RECEIVED PATIENT ON AC/VC 450 RATE 10 PEEP 5 FIO2 35%. ALARM HISTORY SHOWED SBT ENDED AT 1847. PATIENT WAS AWAKE AND ALERT, GESTURED YES THAT HE WOULD LIKE TO BE SUCTIONED. PT IS TRACH'D WITH A SIZE 8 PORTEX THAT IS SECURE WITH TRACH TIES AND PROTECTIVE GAUZE. STOMA AND TRACH AREA APPEARS CLEAN AND INTACT WITH NO EXCESSIVE DRAINAGE. B/S: COARSE IN THE UPPER LOBES. SUCTIONED AND RECEIVED SMALL, THIN AND THICK WHITE SECRETIONS. NO TREATMENT GIVEN. VENT AND ALARM SETTINGS VERIFIED.
[2019-12-10] MEDS: INSULIN LANTUS 100 UNITS/ML 10 ML VIAL SUBQ SCH (21:51)
--- NOTE | 2019-12-10 21:51 | NUR ---
GIVEN LANTUS AND ROCEPHIN MD ORDERED. PT TOLERATED WELL.
--- NOTE | 2019-12-10 23:56 | NUR ---
ROUTINE VENT CHECK. NO CHANGES TO SETTINGS. PATIENT IS ASLEEP AND APPEARS COMFORTABLE WITH NO DISTRESS.
[2019-12-11] VITALS: BP 138/93
--- NOTE | 2019-12-11 | NUR ---
VS CHECKED, WITHIN PT'S BASELINE. WILL CONTINUE TO MONITOR.
[2019-12-11] MEDS: HYDRAGUARD CREAM TP SCH ×2 (01:11→13:10)
[2019-12-11] MEDS ORDERED: LEVOFLOXACIN 750 MG/D5W PREMIX 150 ML IV SCH (01:40)
--- NOTE | 2019-12-11 01:58 | NUR ---
GIVEN LEVAQUIN MD ORDERED. PT TOLERATED WELL.
[2019-12-11 04:00] VITALS: BP 135/88
[2019-12-11] MEDS ORDERED: PIPERACILLIN/TAZOBACTAM 3.375 GM VIAL IV ONE (04:01)
[2019-12-11] MEDS: PIPERACILLIN/TAZOBACTAM 3.375 GM in DEXTROSE 5% 50 ML IV SCH ×2 (04:07→13:09)
--- NOTE | 2019-12-11 04:07 | NUR ---
GIVEN ZOSYN MD ORDERED. PT TOLERATED WELL.
--- NOTE | 2019-12-11 05:35 | NUR ---
ROUTINE VENT CHECK. NO CHANGES MADE TO VENT SETTINGS. COMPLETED TRACH CARE WITH NO INCIDENT. STOMA APPEARS CLEAN AND INTACT, DRAINING SMALL AMOUNT OF PALE YELLOW AND PINK FLUID.
[2019-12-11] MEDS: INSULIN LISPRO SLIDING SCALE 100 UNITS/ML VIAL SUBQ PRN ×2 (05:55→13:08)
--- NOTE | 2019-12-11 05:55 | NUR ---
BS CHECKED, 171. GIVEN INSULIN MD ORDERED. PT TOLERATED WELL.
[2019-12-11] MEDS: BLOOD GLUCOSE MONITORING 1 DEV DEV FS SCH ×2 (05:57→11:30)
--- NOTE | 2019-12-11 06:39 | NUR ---
PT IN STABLE CONDITION. WILL ENDORSE PT TO DAY SHIFT NURSE FOR CONTINUOUS CARE.
--- NOTE | 2019-12-11 07:15 | NUR ---
RECEIVED REPORT AT BEDSIDE FROM [facility] SHIFT NURSE. PATIENT LYING IN BED AWAKE AND ALERT. PT IS ABLE TO MOUTH HIS NEED AND COMMUNICATE THROUGH. NOT IN ANY ACUTE DISTRESS, WITH TRACH TO VENT, VENT SETTING FIO2 35%, VT 450 ML, RATE 10, FLOW 45 I/MIN, PEEP 58, SPO2 AT 100%. IV ON ON R WRIST 20G, CLEAN AND INTACT, INFUSING NS AT 20 ML/HR. INDWELLING MEADOWS CATHETER DRAINING YELLOW URINE. L EAR OPEN WOUND AND SACRAL REDNESS, CROZE CUTTER. G-TUBE INTACT AND PATENT WITH FEEDING OF VITAL 1.2. CONTACT PRECAUTION IN PLACE AND SIGN POSTED. TELE MONITOR ATTACHED. SAFETY MEASURES IN PLACE. CALL LIGHT WITHIN REACH. CONTINUE TO MONITOR. KEEP BED AT LOW POSITION WITH HEAD OF BED ELEVATED 30 DEGREE. ASSESSMENT DONE.
[2019-12-11 07:26] LABS: BASOPHILS % (AUTO) 0.8 % (0.0-2.0); EOSINOPHILS # (AUTO) 0.2 K/uL (0-0.4); HEMATOCRIT 26.2 % (36-52); HEMOGLOBIN 8.9 g/dL (12.0-18.0); LYMPHOCYTES % (AUTO) 17.4 % (20.5-51.1); MEAN CORPUSCULAR HEMOGLOBIN 30 pg (27-31); MEAN CORPUSCULAR HGB CONC 34 g/dL (33-37); MEAN CORPUSCULAR VOLUME 88.3 fL (80-94); MONOCYTES # (AUTO) 0.5 K/uL (0.8-1.0); NEUTROPHILS # (AUTO) 4.1 K/uL (1.8-7.7); NEUTROPHILS % (AUTO) 68.8 % (42.2-75.2); PLATELET COUNT (AUTO) 188 K/uL (140-450); RED BLOOD CELL COUNT(AUTO) 2.97 MIL/uL (4.20-6.10); RED CELL DISTRIBUTION WIDTH 14.6 % (11.6-13.7)
[2019-12-11 08:00] VITALS: BP 150/95
[2019-12-11 09:00] LABS: ANION GAP 10.6 (8-16); CARBON DIOXIDE 27.2 mmol/L (21-32); CREATININE 0.6 mg/dL (0.6-1.3); POTASSIUM 3.8 mmol/L (3.5-5.1)
[2019-12-11] MEDS: APIXABAN 2.5 MG TAB GT SCH (09:00)
[2019-12-11] MEDS: LACTOBACILLUS RHAMNOSUS GG 1 EACH CAP GT SCH (09:10)
[2019-12-11] MEDS: levETIRAcetam 100 MG/ML ORASYR GT SCH (09:11)
[2019-12-11] MEDS: DOCUSATE SODIUM 100 MG GELCAP PO SCH (09:11)
[2019-12-11] MEDS: PANTOPRAZOLE 40 MG TABEC PO SCH (09:13)
[2019-12-11] MEDS: METOPROLOL 25 MG TAB PO SCH (09:13)
[2019-12-11] MEDS: BACITRACIN OINT 15000 UNITS/30 GM TUBE TP SCH (09:14)
[2019-12-11] MEDS: SODIUM PHOS / POTASSIUM PHOS 1 PKT PDR PO SCH (09:14)
--- NOTE | 2019-12-11 09:33 | NUR ---
ADMINISTERED ALL DUE MEDS VIA G-TUBE. CHECKED GT RESIDUAL. NO RESIDUAL. BP CHECKED 150/95. TOLERATED WELL. PATIENT RESTING, AROUSABLE TO VERBAL. NO C/O PAIN. NOT IN ANY ACUTE DISTRESS.
--- NOTE | 2019-12-11 10:36 | NUR ---
PROVIDED ORAL HYGIENE AND CHG BATH TO PT. EDUCATION PROVIDED. SUCTIONED PT 2X AND PT TOLERATED WELL. NO SIGNS OF DISTRESS NOTED. TELE MONITOR ATTACHED. SAFETY MEASURES IN PLACE.
[2019-12-11] MEDS ORDERED: SODIUM PHOS / POTASSIUM PHOS 1 PKT PDR PO ONE (11:10)
[2019-12-11] MEDS ORDERED: PIPE1PDS26 IV (11:13)
[2019-12-11] MEDS ORDERED: LEVO750T2 IV (11:13)
--- NOTE | 2019-12-11 11:50 | NUR ---
WITH ASSIST FROM PACKING CLERK, REPOSITIONED AND CLEAN PT, PT HAS ONE SMALL BM. PT TOLERATED WELL. PICTURES TAKEN. CHANGED PT INTO PINK GOWN. APPLIED HEEL PROTECTORS BILATERALLY, USED PILLOWS TO EVEN PRESSURE SURFACE. CHANGED G-TUBE DRESSING. APPLIED HYDRAGUARD ON PERINEAL AREA. SEIZURE PRECAUTION IN PLACE. TELE MONITOR IN PLACE. SAFETY MEASURES IN PLACE. BED ALARM ACTIVATED.
[2019-12-11 12:00] VITALS: BP 138/89
[2019-12-11] MEDS: GAUZE TP SCH (13:10)
--- NOTE | 2019-12-11 13:10 | NUR ---
ADMINISTERED 2 UNITS OF HUMALOG FOR BLOOD GLUCOSE 170. ADMINISTERED ZOSYN VIA IBPV, MEDS ED PROVIDED TO PT. APPLIED HYDRAGUARD ON PERINEAL AREA, PT TOLERATED WELL. PT AWAKE WITH EYES OPEN. NO SIGNS OF DISTRESS NOTED. VISITORS ARE BY BEDSIDE. TELE MONITOR ATTACHED. SAFETY MEASURES IN PLACE. BED ALARM ACTIVATED.
--- NOTE | 2019-12-11 13:25 | NUR ---
PT'S SON AND DAUGHTER GASPER ARE BY BEDSIDE. INFORMED THAT PT WILL BE TRANSFER TO [facility] AROUND 4 PM TODAY, BOTH WAS AWARE. ANSWERED ALL THEIR QUESTIONS.
--- NOTE | 2019-12-11 14:22 | NUR ---
WITH ASSIST FROM EMERGENCY MEDICAL TECHNICIAN BASIC, REPOSITIONED PT TO HIS LEFT LATERAL SIDE, OFF LOADED PRESSURE FROM BACK, LEGS AND ARMS WITH PILLOWS. BILATERAL HEEL PROTECTORS IN PLACE. SCD IN PLACE. PT TOLERATED WELL. SON AND DAUGHTER ARE BY BEDSIDE. NO SIGNS OF DISTRESS NOTED. TELE MONITOR ATTACHED. SAFETY MEASURES IN PLACE. BED ALARM ACTIVATED.
--- NOTE | 2019-12-11 14:28 | NUR ---
CALLED [facility] AND SPOKE WITH HAYLEE KOHLI. PROVIDED FULL REPORT AND ANSWERED ALL HAYLEE'S QUESTIONS. HAYLEE WAS AWARE THAT PT WILL BE TRANSFER TO HER FACILITY AT 4 PM TODAY TO ROOM 23A UNDER THE CARE OF DR PHAM. PROVIDED A CALL BACK NUMBER FOR FURTHER QUESTION.
--- NOTE | 2019-12-11 15:46 | NUR ---
PATIENT IN BED AWAKE WITH FAMILY AT BEDSIDE. NOT IN ANY ACUTE DISTRESS. TELE MONITOR ATTACHED. BED ALARM ACTIVATED. KEPT COMFORTABLE. CONTINUE TO MONITOR.
--- NOTE | 2019-12-11 16:22 | NUR ---
DISCHARGE INSTRUCTION PROVIDED TO PT AND DAUGHTER GASPER AT BEDSIDE. EDUCATED PT ON DISEASE MANAGEMENT, MEDICATION REGIMEN, SIDE EFFECTS, INFECTION, AND WOUND CARE. ANSWERED ALL GASPER'S QUESTIONS AND GASPER VERBALIZED UNDERSTANDING. PROVIDED PRINTED DISCHARGE INSTRUCTION TO GASPER AND TOVA. REMOVED ALL ARM BANDS. KEEP IV ON FOR ANTIBIOTIC AT [facility], MEADOWS IN PLACE. [facility] TRANSFERRED PT FROM BED TO [facility] AND CONNECTED PT TO THEIR VENT. PT TOLERATED WELL. PT IS UP TO DATE WITH BOTH VACCINES. GASPER CHECKED ALL CABINETS AND TOOK ALL PT'S BELONGINGS. PT IS GOING TO TRANSFER [place] [facility] [place] [facility]. PT IS IN STABLE CONDITION.
--- NOTE | 2019-12-11 16:45 | NUR ---
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 PER [place] DAMICO, HE WILL CONTACT DR PHAM AT [facility] AND INFORM HIM ON REGARDS.
== END 2019-12-11 16:22 | DRG 720 ==
LOC: MED 18:52 → MTU 20:20
PROVIDERS: ADMIT General Practice; ATTEND General Practice
PROC: 5A1945Z Respiratory Ventilation, 24-96 Consecutive Hours (ICD-10-PCS; principal; 2019-12-07)
DX: A41.9 Sepsis, unspecified organism (principal); J96.21 Acute and chronic respiratory failure with hypoxia; G82.50 Quadriplegia, unspecified; E43 Unspecified severe protein-calorie malnutrition; Z99.11 Dependence on respirator [ventilator] status; J18.9 Pneumonia, unspecified organism; Z93.0 Tracheostomy status; K76.0 Fatty (change of) liver, not elsewhere classified; D63.8 Anemia in other chronic diseases classified elsewhere; E11.9 Type 2 diabetes mellitus without complications; I10 Essential (primary) hypertension; N39.0 Urinary tract infection, site not specified; R65.20 Severe sepsis without septic shock; J98.11 Atelectasis; R13.10 Dysphagia, unspecified; E78.2 Mixed hyperlipidemia; E87.6 Hypokalemia; E83.39 Other disorders of phosphorus metabolism; Z22.322 Carrier or suspected carrier of Methicillin resistant Staphylococcus aureus; Z86.73 Personal history of transient ischemic attack (TIA), and cerebral infarction without residual deficits; Z87.891 Personal history of nicotine dependence; Z93.1 Gastrostomy status; Z79.4 Long term (current) use of insulin; Z79.899 Other long term (current) drug therapy; Z68.38 Body mass index [BMI] 38.0-38.9, adult
CPT/HCPCS: 36415; 36600; 71045; 76700; 80048; 80053; 80305; 81001; 82140; 82150; 82550; 82553; 82803; 82948; 83036; 83605; 83690; 83735; 83880; 84100; 84439; 84443; 84484; 85025; 85610; 85730; 87040; 87070; 87075; 87081; 87086; 87186; 87205; 87804; 93005; 94003; 96365; 97163-GP; 99285; J0696; J1815; J1940; J1956; J2270; J2543; J3370; J3480; J7030; J7042; J7060; Q0092

== ENCOUNTER 2020-06-01 06:45 | Inpatient (IN) | payer OTHER, SELFPAY ==
[~2020-06-01] VITALS: Ht 180.3 cm; Wt 101.6 kg
[~2020-06-01 06:45] MED LIST: APIX5TAB GT; ASCO500T95 GT; ATI.5 GT; BACL10TA4 GT; CRAN450C GT; DOCU-299 GT; KEP500L GT; L. A1CAP GT; LOSA50TA57 PO; MIRABULK GT; MULT-2112 GT
[2020-06-01 07:04] VITALS: BP 85/62
[2020-06-01 07:20] VITALS: BP 102/62
[2020-06-01] MEDS ORDERED: cefTRIAXone 1,000 MG VIAL ONE (07:20)
[2020-06-01] MEDS ORDERED: NACL 0.9% 1,000 ML IV ONE ×3 (07:20→08:25)
[2020-06-01 07:21] LABS: BASOPHILS # (AUTO) 0.1 K/uL (0.00-0.22); BASOPHILS % (AUTO) 0.7 % (0.0-2.0); EOSINOPHILS # (AUTO) 0.4 K/uL (0-0.4); EOSINOPHILS % (AUTO) 2.8 % (0.0-4.0); HEMATOCRIT 39.6 % (36-52); HEMOGLOBIN 12.9 g/dL (12.0-18.0); LYMPHOCYTES % (AUTO) 21.4 % (20.5-51.1); MEAN CORPUSCULAR HEMOGLOBIN 30 pg (27-31); MEAN CORPUSCULAR HGB CONC 33 g/dL (33-37); MEAN CORPUSCULAR VOLUME 92.8 fL (80-94); MONOCYTES # (AUTO) 0.9 K/uL (0.8-1.0); MONOCYTES % (AUTO) 6.4 % (1.7-9.3); NEUTROPHILS # (AUTO) 9.5 K/uL (1.8-7.7); NEUTROPHILS % (AUTO) 68.7 % (42.2-75.2); PLATELET COUNT (AUTO) 209 K/uL (140-450); RED BLOOD CELL COUNT(AUTO) 4.27 MIL/uL (4.20-6.10); RED CELL DISTRIBUTION WIDTH 15.6 % (11.6-13.7); WHITE BLOOD COUNT (AUTO) 13.8 K/uL (4.8-10.8)
[2020-06-01 07:39] LABS: APPEARANCE,URINE CLOUDY (CLEAR); BILIRUBIN,URINE NEGATIVE (NEGATIVE); BLOOD, URINE TRACE-I (NEGATIVE); COLOR,URINE AMBER (YELLOW); LEUKOCYTE ESTERASE ,URINE 3+ (NEGATIVE); NITRITE, URINE NEGATIVE (NEGATIVE); UGLUCOSE NEGATIVE (NEGATIVE)
[2020-06-01 07:53] LABS: ALBUMIN 2.9 g/dL (3.4-5.0); ANION GAP 14.5 (8-16); CREATININE 1.3 mg/dL (0.6-1.3); POTASSIUM 4.5 mmol/L (3.5-5.1); TOTAL BILIRUBIN 0.4 mg/dL (0.0-1.0)
[2020-06-01 08:28] LABS: LACTATE DEHYDROGENASE 166 U/L (85-227)
[2020-06-01 08:28] LABS: RSV NEGATIVE (NEGATIVE)
[2020-06-01] MEDS ORDERED: ACETAMINOPHEN 650 MG SUPP RC ONE ×2 (08:55→21:08)
[2020-06-01 09:43] LABS: C-REACTIVE PROTEIN QUANT 14.1 mg/dL (0.0-0.9)
[2020-06-01] MEDS ORDERED: CRAN450T5 GT (09:48)
[2020-06-01] MEDS ORDERED: KEP500L GT (09:48)
[2020-06-01] MEDS ORDERED: MULT-2611 GT (09:48)
[2020-06-01] MEDS ORDERED: ASCO500T95 GT (09:48)
[2020-06-01] MEDS ORDERED: APIX5TAB GT (09:48)
[2020-06-01] MEDS ORDERED: BACL10TA4 GT (09:48)
[2020-06-01] MEDS ORDERED: LOSA50TA66 GT (09:48)
[2020-06-01] MEDS ORDERED: LACT1CAP59 GT (09:48)
[2020-06-01] MEDS ORDERED: MIRABULK GT (09:48)
[2020-06-01] MEDS ORDERED: LORazepam 2 MG/ML VIAL IVP PRN (09:50)
[2020-06-01] MEDS ORDERED: MORPHINE SULFATE 4 MG/ML SYR IVP PRN ×2 (09:50→18:35)
[2020-06-01] MEDS ORDERED: ONDANSETRON 4 MG/2 ML VIAL IVP PRN (09:50)
[2020-06-01] MEDS ORDERED: VANCOMYCIN PER PHARMACY MC PRN (09:50)
[2020-06-01 10:02] VITALS: BP 111/64
[2020-06-01 10:07] LABS: RBC,URINE 0-5 /HPF (0-5); WBC,URINE 16-25 (MOD) /HPF (0-5)
[2020-06-01] MEDS: NACL 0.9% 1,000 ML IV SCH ×2 (10:19→22:25)
[2020-06-01] MEDS ORDERED: VANCOMYCIN 1,000 MG in DEXTROSE 5% 250 ML IV SCH (12:00)
[2020-06-01] MEDS ORDERED: VANCOMYCIN 1,000 MG VIAL ONE (12:10)
[2020-06-01] MEDS: VANCOMYCIN 1,000 MG in DEXTROSE 5% 250 ML IV SCH (12:32)
[2020-06-01] MEDS: MIDODRINE 5 MG TAB GT SCH ×2 (12:36→18:21)
[2020-06-01] MEDS ORDERED: PIPERACILLIN/TAZOBACTAM 3.375 GM in DEXTROSE 5% 50 ML IV SCH (13:00)
[2020-06-01 13:59] VITALS: BP 105/68
[2020-06-01] MEDS ORDERED: PIPERACILLIN/TAZOBACTAM 3.375 GM VIAL IV ONE ×2 (14:15→20:44)
[2020-06-01] MEDS: PIPERACILLIN/TAZOBACTAM 3.375 GM in DEXTROSE 5% 50 ML IV SCH ×2 (14:29→21:25)
[2020-06-01 19:25] VITALS: BP 157/34
[2020-06-01] MEDS ORDERED: ACETAMINOPHEN 650 MG SUPP RC PRN (21:05)
[2020-06-01] MEDS: APIXABAN 2.5 MG TAB GT SCH (21:24)
[2020-06-01] MEDS: levETIRAcetam 100 MG/ML ORASYR GT SCH (21:25)
[2020-06-02] VITALS (7 sets, daily range): BP systolic 101–136; BP diastolic 38–62
[2020-06-02] MEDS ORDERED: VANCOMYCIN 1,000 MG VIAL ONE (00:19)
[2020-06-02] MEDS: VANCOMYCIN 1,000 MG in DEXTROSE 5% 250 ML IV SCH ×2 (00:44→12:36)
[2020-06-02] MEDS ORDERED: PIPERACILLIN/TAZOBACTAM 3.375 GM VIAL IV ONE (04:49)
[2020-06-02] MEDS: PIPERACILLIN/TAZOBACTAM 3.375 GM in DEXTROSE 5% 50 ML IV SCH ×3 (05:00→20:05)
[2020-06-02] MEDS: MIDODRINE 5 MG TAB GT SCH ×4 (05:13→18:10)
[2020-06-02 07:02] LABS: BASOPHILS # (AUTO) 0.1 K/uL (0.00-0.22); EOSINOPHILS # (AUTO) 0.2 K/uL (0-0.4); EOSINOPHILS % (AUTO) 1.6 % (0.0-4.0); HEMATOCRIT 36.3 % (36-52); HEMOGLOBIN 11.6 g/dL (12.0-18.0); LYMPHOCYTES # (AUTO) 3.4 K/uL (2.0-11.5); LYMPHOCYTES % (AUTO) 24.2 % (20.5-51.1); MEAN CORPUSCULAR HEMOGLOBIN 30 pg (27-31); MEAN CORPUSCULAR HGB CONC 32 g/dL (33-37); MEAN CORPUSCULAR VOLUME 92.9 fL (80-94); MONOCYTES # (AUTO) 1.3 K/uL (0.8-1.0); MONOCYTES % (AUTO) 8.9 % (1.7-9.3); NEUTROPHILS # (AUTO) 9.2 K/uL (1.8-7.7); NEUTROPHILS % (AUTO) 64.3 % (42.2-75.2); PLATELET COUNT (AUTO) 188 K/uL (140-450); RED CELL DISTRIBUTION WIDTH 14.6 % (11.6-13.7); WHITE BLOOD COUNT (AUTO) 14.3 K/uL (4.8-10.8)
[2020-06-02 07:33] LABS: ALBUMIN 2.4 g/dL (3.4-5.0); ANION GAP 14.2 (8-16); CARBON DIOXIDE 27.8 mmol/L (21-32); CREATININE 1.1 mg/dL (0.6-1.3); TOTAL BILIRUBIN 0.7 mg/dL (0.0-1.0)
[2020-06-02] MEDS ORDERED: CRUSHER, PILL MC ONE (09:39)
[2020-06-02] MEDS: levETIRAcetam 100 MG/ML ORASYR GT SCH ×2 (09:44→20:05)
[2020-06-02] MEDS: MULTIVITAMIN 1 TAB GT SCH (09:44)
[2020-06-02] MEDS: POLYETHYLENE GLYCOL 17 GM/PKT GT SCH (09:44)
[2020-06-02] MEDS: DEXTROSE 5% 1,000 ML IV SCH ×2 (09:45→21:30)
[2020-06-02] MEDS: ASCORBIC ACID 500 MG/5 ML ORASYR GT SCH (09:45)
[2020-06-02] MEDS: APIXABAN 2.5 MG TAB GT SCH ×2 (09:45→20:06)
[2020-06-02] MEDS ORDERED: SKINTEGRITY HYDROGEL TP PRN (15:45)
[2020-06-02] MEDS ORDERED: Z-GUARD PASTE TP PRN (16:05)
[2020-06-03] VITALS: BP 126/81
[2020-06-03] MEDS: MIDODRINE 5 MG TAB GT SCH ×5 (00:06→23:28)
[2020-06-03] MEDS: VANCOMYCIN 1,000 MG in DEXTROSE 5% 250 ML IV SCH ×3 (00:06→23:27)
[2020-06-03 04:00] VITALS: BP 122/75
[2020-06-03] MEDS: PIPERACILLIN/TAZOBACTAM 3.375 GM in DEXTROSE 5% 50 ML IV SCH ×3 (05:43→20:03)
[2020-06-03 06:37] LABS: BASOPHILS # (AUTO) 0.1 K/uL (0.00-0.22); BASOPHILS % (AUTO) 0.7 % (0.0-2.0); EOSINOPHILS # (AUTO) 0.7 K/uL (0-0.4); EOSINOPHILS % (AUTO) 5.7 % (0.0-4.0); HEMATOCRIT 35.3 % (36-52); HEMOGLOBIN 11.3 g/dL (12.0-18.0); LYMPHOCYTES # (AUTO) 2.2 K/uL (2.0-11.5); LYMPHOCYTES % (AUTO) 18.8 % (20.5-51.1); MEAN CORPUSCULAR HEMOGLOBIN 30 pg (27-31); MEAN CORPUSCULAR HGB CONC 32 g/dL (33-37); MEAN CORPUSCULAR VOLUME 93.1 fL (80-94); MONOCYTES # (AUTO) 0.8 K/uL (0.8-1.0); MONOCYTES % (AUTO) 6.8 % (1.7-9.3); NEUTROPHILS # (AUTO) 7.9 K/uL (1.8-7.7); PLATELET COUNT (AUTO) 166 K/uL (140-450); RED BLOOD CELL COUNT(AUTO) 3.79 MIL/uL (4.20-6.10); RED CELL DISTRIBUTION WIDTH 14.8 % (11.6-13.7); WHITE BLOOD COUNT (AUTO) 11.6 K/uL (4.8-10.8)
[2020-06-03 06:59] LABS: ALBUMIN 2.2 g/dL (3.4-5.0); CARBON DIOXIDE 27.5 mmol/L (21-32); POTASSIUM 3.5 mmol/L (3.5-5.1); TOTAL BILIRUBIN 0.4 mg/dL (0.0-1.0)
[2020-06-03 08:00] VITALS: BP 118/76
[2020-06-03] MEDS: ASCORBIC ACID 500 MG/5 ML ORASYR GT SCH (08:27)
[2020-06-03] MEDS: levETIRAcetam 100 MG/ML ORASYR GT SCH ×2 (08:29→20:03)
[2020-06-03] MEDS: APIXABAN 2.5 MG TAB GT SCH ×2 (08:29→20:03)
[2020-06-03] MEDS: MULTIVITAMIN 1 TAB GT SCH (08:30)
[2020-06-03] MEDS: POLYETHYLENE GLYCOL 17 GM/PKT GT SCH (08:30)
[2020-06-03] MEDS: DEXTROSE 5% 1,000 ML IV SCH ×2 (10:00→14:05)
[2020-06-03 12:00] VITALS: BP 119/81
[2020-06-03] MEDS: SKINTEGRITY HYDROGEL TP SCH (13:48)
[2020-06-03] MEDS: Z-GUARD PASTE TP SCH (13:48)
[2020-06-03 16:00] VITALS: BP 134/84
[2020-06-03 20:00] VITALS: BP 110/49
[2020-06-03] MEDS ORDERED: DEXTROSE 50% 50 ML SYR IVP PRN (20:05)
[2020-06-03] MEDS: BLOOD GLUCOSE MONITORING 1 DEV DEV FS SCH (21:03)
[2020-06-03] MEDS: INSULIN LISPRO SLIDING SCALE 100 UNITS/ML VIAL SUBQ PRN (21:03)
[2020-06-04] VITALS: BP 132/85
[2020-06-04 04:00] VITALS: BP 149/82
[2020-06-04] MEDS: PIPERACILLIN/TAZOBACTAM 3.375 GM in DEXTROSE 5% 50 ML IV SCH ×3 (05:11→20:27)
[2020-06-04] MEDS: MIDODRINE 5 MG TAB GT SCH ×4 (05:16→23:30)
[2020-06-04] MEDS: INSULIN LISPRO SLIDING SCALE 100 UNITS/ML VIAL SUBQ PRN ×4 (06:09→20:29)
[2020-06-04] MEDS: BLOOD GLUCOSE MONITORING 1 DEV DEV FS SCH ×4 (06:09→20:27)
[2020-06-04 06:26] LABS: BASOPHILS # (AUTO) 0.1 K/uL (0.00-0.22); BASOPHILS % (AUTO) 0.9 % (0.0-2.0); EOSINOPHILS # (AUTO) 0.7 K/uL (0-0.4); EOSINOPHILS % (AUTO) 8.4 % (0.0-4.0); HEMATOCRIT 29.9 % (36-52); HEMOGLOBIN 9.9 g/dL (12.0-18.0); LYMPHOCYTES # (AUTO) 1.8 K/uL (2.0-11.5); LYMPHOCYTES % (AUTO) 21.7 % (20.5-51.1); MEAN CORPUSCULAR HEMOGLOBIN 30 pg (27-31); MEAN CORPUSCULAR HGB CONC 33 g/dL (33-37); MEAN CORPUSCULAR VOLUME 91.4 fL (80-94); MONOCYTES # (AUTO) 0.5 K/uL (0.8-1.0); MONOCYTES % (AUTO) 6.5 % (1.7-9.3); NEUTROPHILS # (AUTO) 5.2 K/uL (1.8-7.7); NEUTROPHILS % (AUTO) 62.5 % (42.2-75.2); PLATELET COUNT (AUTO) 149 K/uL (140-450); RED BLOOD CELL COUNT(AUTO) 3.27 MIL/uL (4.20-6.10); RED CELL DISTRIBUTION WIDTH 14.5 % (11.6-13.7); WHITE BLOOD COUNT (AUTO) 8.4 K/uL (4.8-10.8)
[2020-06-04 06:48] LABS: ALBUMIN 2.1 g/dL (3.4-5.0); ANION GAP 12.6 (8-16); CARBON DIOXIDE 28.5 mmol/L (21-32); CREATININE 0.9 mg/dL (0.6-1.3); POTASSIUM 3.1 mmol/L (3.5-5.1); TOTAL BILIRUBIN 0.3 mg/dL (0.0-1.0)
[2020-06-04 08:00] VITALS: BP 117/79
[2020-06-04] MEDS: POLYETHYLENE GLYCOL 17 GM/PKT GT SCH (08:08)
[2020-06-04] MEDS: MULTIVITAMIN 1 TAB GT SCH (08:16)
[2020-06-04] MEDS: levETIRAcetam 100 MG/ML ORASYR GT SCH ×2 (08:16→20:27)
[2020-06-04] MEDS: APIXABAN 2.5 MG TAB GT SCH ×2 (08:23→20:27)
[2020-06-04] MEDS: ASCORBIC ACID 500 MG TAB GT SCH (10:56)
[2020-06-04] MEDS: DEXTROSE 5% 1,000 ML IV SCH ×2 (11:32→20:29)
[2020-06-04] MEDS: VANCOMYCIN 1,000 MG in DEXTROSE 5% 250 ML IV SCH ×2 (11:44→23:30)
[2020-06-04 12:00] VITALS: BP 92/63
[2020-06-04] MEDS: SKINTEGRITY HYDROGEL TP SCH (13:26)
[2020-06-04] MEDS: Z-GUARD PASTE TP SCH (13:26)
[2020-06-04] MEDS ORDERED: POTASSIUM CHLORIDE 20% 40 MEQ/15 ML UDC GT SCH (14:50)
[2020-06-04 16:00] VITALS: BP 126/83
[2020-06-04 20:00] VITALS: BP 125/75
[2020-06-05] VITALS: BP 104/67
[2020-06-05 04:00] VITALS: BP 132/77
[2020-06-05] MEDS: MIDODRINE 5 MG TAB GT SCH ×3 (05:14→18:25)
[2020-06-05] MEDS: PIPERACILLIN/TAZOBACTAM 3.375 GM in DEXTROSE 5% 50 ML IV SCH ×2 (05:14→13:11)
[2020-06-05] MEDS: BLOOD GLUCOSE MONITORING 1 DEV DEV FS SCH ×3 (06:11→16:31)
[2020-06-05] MEDS: INSULIN LISPRO SLIDING SCALE 100 UNITS/ML VIAL SUBQ PRN ×3 (06:11→16:32)
[2020-06-05] MEDS ORDERED: ACETAMINOPHEN 650 MG/20.3 ML UDC PO PRN (06:20)
[2020-06-05 08:00] VITALS: BP 112/73
[2020-06-05 08:21] LABS: ALBUMIN 2.1 g/dL (3.4-5.0); ANION GAP 12.3 (8-16); CREATININE 0.8 mg/dL (0.6-1.3); POTASSIUM 3.3 mmol/L (3.5-5.1); TOTAL BILIRUBIN 0.3 mg/dL (0.0-1.0)
[2020-06-05 08:46] LABS: BASOPHILS # (AUTO) 0.1 K/uL (0.00-0.22); BASOPHILS % (AUTO) 0.7 % (0.0-2.0); EOSINOPHILS # (AUTO) 0.8 K/uL (0-0.4); EOSINOPHILS % (AUTO) 8.2 % (0.0-4.0); HEMATOCRIT 30.1 % (36-52); HEMOGLOBIN 10.1 g/dL (12.0-18.0); LYMPHOCYTES # (AUTO) 1.5 K/uL (2.0-11.5); LYMPHOCYTES % (AUTO) 16.2 % (20.5-51.1); MEAN CORPUSCULAR HEMOGLOBIN 31 pg (27-31); MEAN CORPUSCULAR HGB CONC 34 g/dL (33-37); MEAN CORPUSCULAR VOLUME 90.9 fL (80-94); MONOCYTES # (AUTO) 0.5 K/uL (0.8-1.0); MONOCYTES % (AUTO) 5.3 % (1.7-9.3); NEUTROPHILS # (AUTO) 6.5 K/uL (1.8-7.7); NEUTROPHILS % (AUTO) 69.6 % (42.2-75.2); PLATELET COUNT (AUTO) 182 K/uL (140-450); RED BLOOD CELL COUNT(AUTO) 3.31 MIL/uL (4.20-6.10); RED CELL DISTRIBUTION WIDTH 14.2 % (11.6-13.7); WHITE BLOOD COUNT (AUTO) 9.4 K/uL (4.8-10.8)
[2020-06-05] MEDS: MULTIVITAMIN 1 TAB GT SCH (09:04)
[2020-06-05] MEDS: levETIRAcetam 100 MG/ML ORASYR GT SCH (09:04)
[2020-06-05] MEDS: ASCORBIC ACID 500 MG TAB GT SCH (09:04)
[2020-06-05] MEDS: POLYETHYLENE GLYCOL 17 GM/PKT GT SCH (09:04)
[2020-06-05] MEDS: APIXABAN 2.5 MG TAB GT SCH (09:05)
[2020-06-05 12:00] VITALS: BP 114/77
[2020-06-05] MEDS: DEXTROSE 5% 1,000 ML IV SCH (12:14)
[2020-06-05] MEDS: VANCOMYCIN 1,000 MG in DEXTROSE 5% 250 ML IV SCH (12:16)
[2020-06-05] MEDS: Z-GUARD PASTE TP SCH (13:11)
[2020-06-05] MEDS: SKINTEGRITY HYDROGEL TP SCH (13:11)
[2020-06-05 16:00] VITALS: BP 128/73
[2020-06-05] MEDS ORDERED: PIPE1PDS20 IV (16:39)
[2020-06-05] MEDS ORDERED: ZOS3.375PM IV (16:40)
[2020-06-05] MEDS ORDERED: VANC1PLA7 IV (16:43)
[2020-06-05] MEDS ORDERED: POTASSIUM CHLORIDE 20% 40 MEQ/15 ML UDC GT SCH (18:30)
== END 2020-06-05 19:20 | DRG 720 ==
LOC: MED 06:45 → EEVIPCON 11:36 → MTU 11:36 → MMU 15:49 → MTU 20:18
PROVIDERS: ADMIT Internal Medicine Pulmonary Disease; ATTEND Internal Medicine Pulmonary Disease
PROC: 5A1955Z Respiratory Ventilation, Greater than 96 Consecutive Hours (ICD-10-PCS; principal; 2020-06-01)
DX: A41.9 Sepsis, unspecified organism (principal); J18.9 Pneumonia, unspecified organism; N39.0 Urinary tract infection, site not specified; J96.20 Acute and chronic respiratory failure, unspecified whether with hypoxia or hypercapnia; Z86.73 Personal history of transient ischemic attack (TIA), and cerebral infarction without residual deficits; G93.40 Encephalopathy, unspecified; I10 Essential (primary) hypertension; E11.9 Type 2 diabetes mellitus without complications; Z93.1 Gastrostomy status; E87.0 Hyperosmolality and hypernatremia; E86.0 Dehydration; R13.10 Dysphagia, unspecified; Z93.0 Tracheostomy status; Z99.11 Dependence on respirator [ventilator] status; G93.41 Metabolic encephalopathy; E78.5 Hyperlipidemia, unspecified
CPT/HCPCS: 36415; 36600; 71045; 80053; 80202; 81001; 82550; 82728; 82803; 82948; 83605; 83615; 83880; 84484; 85025; 85379; 85384; 85610; 85730; 86140; 87040; 87070; 87081; 87086; 87186; 87205; 87420; 87804; 93005; 94003; 96361; 96365; 96375; 99291; A6248; J0696; J2270; J2543; J3370; J7060; Q0092; U0003-CS

== ENCOUNTER 2022-12-02 23:19 | Inpatient (IN) | payer OTHER ==
[~2022-12-02] VITALS: Ht 188 cm; Wt 113.9 kg
[~2022-12-02 23:19] MED LIST changes: -ATI.5 GT; -CRAN450C GT; +CRAN450T5 GT; -DOCU-299 GT; -L. A1CAP GT; +LACT1CAP59 GT; -LOSA50TA57 PO; +LOSA50TA66 GT; -MULT-2112 GT; +MULT-2611 GT; +VANC1PLA7 IV; +ZOS3.375PM IV
--- NOTE | 2022-12-02 23:19 | NUR ---
[facility] ER BED 8 [facility]
[2022-12-02 23:21] VITALS: BP 101/42
--- NOTE | 2022-12-02 23:30 | NUR ---
KAROLINE AND EWA COLLECTED AND SENT TO LAB
--- NOTE | 2022-12-02 23:30 | NUR ---
62 Y/O M PT PRESENTS [place] H[place] OF [place] [facility] [place] GIVEN AT 2100 PRIOR TO ARRIVING. PT IS TRACH TO VENT, A&OX2. PT ARRIVED WITH A MEADOWS, RIK MEADOWS PUT IN. PT HAS A G-TUBE, R HIP RASH REDDENED, SACRAL 4X4. PMH- HYPOTENSION, STROKE, DIABETES, HYPOLIPIDEMA NKA
--- NOTE | 2022-12-02 23:31 | NUR ---
Patient being evaluated by physician at bedside.
--- NOTE | 2022-12-02 23:39 | NUR ---
2318 RECEIVED PT FROM AMBULANCE. TRACH TO VENT. PLACED PT ON CARESCAPE VENT. SETTINGS IMV 14 VT 500 AICV4KA AND FIO2 28%. PATIENT WAS ON THOSE SETTINGS AT HIS FACILITY. PT HAS A PORTEX SIZE 8 TRACH. SPUTUM SAMPLE UPTAINED AND SENT TO LAB
[2022-12-02 23:42] VITALS: BP 98/57
[2022-12-02 23:54] LABS: BASOPHILS % (AUTO) 0.4 % (0.0-2.0); EOSINOPHILS # (AUTO) 0.1 K/uL (0-0.4); EOSINOPHILS % (AUTO) 0.5 % (0.0-4.0); HEMATOCRIT 31.1 % (36-52); HEMOGLOBIN 10.6 g/dL (12.0-18.0); LYMPHOCYTES # (AUTO) 0.9 K/uL (2.0-11.5); LYMPHOCYTES % (AUTO) 8.6 % (20.5-51.1); MEAN CORPUSCULAR HEMOGLOBIN 31 pg (27-31); MEAN CORPUSCULAR HGB CONC 34 g/dL (33-37); MONOCYTES # (AUTO) 0.6 K/uL (0.8-1.0); MONOCYTES % (AUTO) 5.9 % (1.7-9.3); NEUTROPHILS # (AUTO) 8.7 K/uL (1.8-7.7); NEUTROPHILS % (AUTO) 84.6 % (42.2-75.2); PLATELET COUNT (AUTO) 142 K/uL (140-450); RED BLOOD CELL COUNT(AUTO) 3.45 MIL/uL (4.20-6.10); RED CELL DISTRIBUTION WIDTH 15.3 % (11.6-13.7); WHITE BLOOD COUNT (AUTO) 10.2 K/uL (4.8-10.8)
[2022-12-03] VITALS (16 sets, daily range): BP systolic 88–129; BP diastolic 57–87
--- NOTE | 2022-12-03 00:03 | NUR ---
XRAY AT BEDSIDE
[2022-12-03 00:08] LABS: ALBUMIN 3.1 g/dL (3.4-5.0); ANION GAP 11.2 (8-16); CARBON DIOXIDE 29.8 mmol/L (21-32); CREATININE 0.9 mg/dL (0.6-1.3); TOTAL BILIRUBIN 0.7 mg/dL (0.0-1.0)
[2022-12-03] MEDS ORDERED: NACL 0.9% 2,000 ML IV ONE (00:35)
--- NOTE | 2022-12-03 02:20 | NUR ---
RT AT BEDSIDE
[2022-12-03 02:24] LABS: APPEARANCE,URINE CLEAR (CLEAR); COLOR,URINE YELLOW (YELLOW)
[2022-12-03 02:25] LABS: BLOOD, URINE MODERATE (NEGATIVE); UGLUCOSE NEGATIVE (NEGATIVE)
[2022-12-03 02:26] LABS: BILIRUBIN,URINE NEGATIVE (NEGATIVE); LEUKOCYTE ESTERASE ,URINE 4+ (NEGATIVE); NITRITE, URINE NEGATIVE (NEGATIVE)
[2022-12-03 02:28] LABS: RBC,URINE 0-5 /HPF (0-5); WBC,URINE TOO MANY TO COUNT /HPF (0-5)
[2022-12-03] MEDS ORDERED: CEFEPIME 2,000 MG in DEXTROSE 5% 100 ML IV ONE (02:30)
[2022-12-03] MEDS ORDERED: VANCOMYCIN 1,000 MG in DEXTROSE 5% 250 ML IV ONE (02:30)
[2022-12-03] MEDS ORDERED: NACL 0.9% 1,000 ML IV ONE (03:00)
--- NOTE | 2022-12-03 03:11 | NUR ---
Julianna jackson in [facility] - 12/03/22 at 0311 by [email or web address] PT RETURNED FROM XRAY
[2022-12-03] MEDS ORDERED: VANCOMYCIN 1,000 MG VIAL ONE (03:14)
[2022-12-03] MEDS ORDERED: CEFEPIME 2,000 MG VIAL IV ONE (03:14)
--- NOTE | 2022-12-03 03:20 | NUR ---
RT AT BEDSIDE
--- NOTE | 2022-12-03 03:49 | NUR ---
PT RESTING, ON ECOMMERCE ANALYST
[2022-12-03] MEDS ORDERED: NACL 0.9% 1,000 ML IV SCH (03:55)
--- NOTE | 2022-12-03 04:15 | NUR ---
ASSUMED FULL CARE OF PT DUE TO ICU STATUS AT THIS TIME. POC FOR B/P IS DR. WARNER WILL PLACE A CENTRAL LINE. PT CURRENTLY RECEIVING 3RD LITER OF FLUID AND ANTIBIOTICS. PLAN IS TO START LEVOPHED ON PT ONCE CENTRAL LINE IS PLACED.
[2022-12-03] MEDS ORDERED: SCOP0.333 TD (04:16)
[2022-12-03] MEDS ORDERED: LID5T TP (04:16)
[2022-12-03] MEDS ORDERED: ACET-8905 GT (04:16)
[2022-12-03] MEDS ORDERED: TAMS0.4C96 GT (04:16)
[2022-12-03] MEDS ORDERED: NOREPINEPHRINE 4 MG in DEXTROSE 5% 250 ML IV PRN (04:20)
[2022-12-03] MEDS ORDERED: ASCO500T95 PO (04:25)
[2022-12-03] MEDS ORDERED: FERR220E24 PO (04:25)
[2022-12-03] MEDS ORDERED: DOCU-299 GT (04:25)
[2022-12-03] MEDS ORDERED: MEDI30SO GT (04:25)
[2022-12-03] MEDS ORDERED: CHOL100013 GT (04:25)
--- NOTE | 2022-12-03 04:26 | NUR ---
CONSENT SIGNED BY MYSELF. MANUEL LY AND SANTIAGO CHARGE NURSE WITH TELEPHONE CONSENT BY GASPER DAUGHTER OBTAINED.
--- NOTE | 2022-12-03 04:42 | NUR ---
DR. WARNER AT BEDSIDE FOR CENTRAL LINE PLACEMENT
[2022-12-03] MEDS: NACL 0.9% 1,000 ML IV SCH ×2 (05:17→18:16)
[2022-12-03] MEDS ORDERED: NOREPINEPHRINE 4 MG/4 ML VIAL IV ONE (06:07)
--- NOTE | 2022-12-03 07:18 | NUR ---
REPORT TO ARCHANA KOHLI
--- NOTE | 2022-12-03 07:30 | NUR ---
PATIENT ADMITTED TO ICU FOR UROSEPSIS . PATIENT ON LEVOPHED 5MCG/MIN. SKIN IS PINK/WARM/DRY; PATIENT IS NONE-VERBAL WITH TRACH. PATIENT WITHDRAWS TO PAIN, DOES NOT RESPOND TO NAME, WITHDRAWS TO PAIN. LUNGS DIMINISHED WITH CRACKLES BL; HR EVEN AND REGULAR; PT AFEBRILE AT THIS TIME; PATIENT CPOT 0/10 AT THIS TIME; FOLEYCATHETER DRAINING WELL. PERIPHERAL IV LINES ON RIGHT ARM WITH NO S/S OF INFILTRATION. CENTRAL LINE TO RIGHT GROIN, TRIPLE LUMEN, PATENT AND FLUSHING WELL. PATIENT WITH WOUND TO COCCYX AREA, DRESSING CLEAN AND INTACT. VSS; PATIENT POSITIONED FOR COMFORT; HOB ELEVATED; BEDRAILS UP X2; BED DOWN.
--- NOTE | 2022-12-03 07:53 | NUR ---
Patient will be admitted to care of DR AREVALO. Admited to ICU 3. Belongings list completed. Report to SEUN DELEON FOR CONTINUITY OF CARE.
--- NOTE | 2022-12-03 08:30 | NUR ---
RECEIVED REPORT FROM ER NURSE. ADMITTED 62Y/O M[place] [facility] [place] CC OF FEVER X1 DAY. ADMITTING DX SEPSIS/UTI. TRACH TO VENT. VENT SETTING SIMV FIO2 28%,TV 400, R 12, PEEP 5. OPENS EYES TO NAME, TRACKS. NO S/S OF PAIN, NO RESPIRATORY DISTRESS. WITH R FEMORAL TLC RUNNING LEVOPHED 5 MCG/MIN, NS 75 CC/HR. WITH PERIPHERAL IV TO RH AND RFA 20G SALINE LOCKED. MEADOWS CATHETER INTACT, DRAINING CLOUDY YELLOW URINE. GT PATENT, CLAMPED. NPO AT THIS TIME. SKIN NOT INTACT, REFER TO WOUND ASSESSMENT.
[2022-12-03] MEDS ORDERED: ACETAMINOPHEN 325 MG TAB PO PRN (08:40)
[2022-12-03] MEDS ORDERED: ONDANSETRON 4 MG/2 ML VIAL IVP PRN (08:40)
[2022-12-03] MEDS ORDERED: HYDROcodone/APAP 7.5/325 MG 1 TAB PO PRN (08:40)
[2022-12-03] MEDS ORDERED: DOCUSATE SODIUM 100 MG GELCAP PO SCH (09:00)
[2022-12-03] MEDS ORDERED: CEFEPIME 2,000 MG in DEXTROSE 5% 100 ML IV SCH ×2 (09:00→22:00)
--- NOTE | 2022-12-03 09:15 | NUR ---
DUE MEDS GIVEN. ORAL CARE AND MEADOWS CARE DONE. TURNED AND REPOSITIONED
--- NOTE | 2022-12-03 09:23 | NUR ---
PATIENT HAS BEEN SCREENED AND CATEGORIZED HIGH NUTRITION RISK. PATIENT WILL BE SEEN WITHIN 1-2 DAYS OF ADMISSION. REVIEWED BY RHETT HOUSTON RD
[2022-12-03] MEDS: DOCUSATE 100 MG/10 ML UDC GT SCH ×3 (09:40→21:00)
[2022-12-03] MEDS: PANTOPRAZOLE 40 MG INJ VIAL IVP SCH (09:40)
[2022-12-03 09:48] LABS: PROTHROMBIN TIME 12.9 secs (10.8-13.4)
[2022-12-03 09:59] LABS: CHOL/HDL RATIO 2.9 (1-4.5); FREE T4 (FREE THYROXINE) 1.27 ng/dL (0.76-1.46); THYROID STIMULATING HORMONE 1.48 uIU/mL (0.34-3.74)
[2022-12-03] MEDS ORDERED: LACTULOSE 20 GM/30 ML UDC PO SCH (10:45)
[2022-12-03 10:47] LABS: BASOPHILS # (AUTO) 0.1 K/uL (0.00-0.22); BASOPHILS % (AUTO) 1.1 % (0.0-2.0); EOSINOPHILS # (AUTO) 0.1 K/uL (0-0.4); EOSINOPHILS % (AUTO) 2.2 % (0.0-4.0); HEMATOCRIT 29.2 % (36-52); HEMOGLOBIN 10.1 g/dL (12.0-18.0); LYMPHOCYTES # (AUTO) 0.5 K/uL (2.0-11.5); LYMPHOCYTES % (AUTO) 7.7 % (20.5-51.1); MEAN CORPUSCULAR HEMOGLOBIN 31 pg (27-31); MEAN CORPUSCULAR HGB CONC 35 g/dL (33-37); MEAN CORPUSCULAR VOLUME 89.7 fL (80-94); MONOCYTES # (AUTO) 0.5 K/uL (0.8-1.0); NEUTROPHILS # (AUTO) 5.5 K/uL (1.8-7.7); PLATELET COUNT (AUTO) 125 K/uL (140-450); RED BLOOD CELL COUNT(AUTO) 3.26 MIL/uL (4.20-6.10); WHITE BLOOD COUNT (AUTO) 6.7 K/uL (4.8-10.8)
[2022-12-03 11:02] LABS: ANION GAP 12.3 (8-16); CARBON DIOXIDE 27.2 mmol/L (21-32); CREATININE 0.8 mg/dL (0.6-1.3); POTASSIUM 3.5 mmol/L (3.5-5.1)
--- NOTE | 2022-12-03 12:30 | NUR ---
NO S/S PAIN, NO RESPIRATORY DISTRESS
[2022-12-03] MEDS ORDERED: Z-GUARD PASTE TP ONE (14:50)
[2022-12-03] MEDS ORDERED: Z-GUARD PASTE TP PRN (15:35)
--- NOTE | 2022-12-03 15:35 | NUR ---
12/03/22 RD INITIAL ASSESSMENT COMPLETED PLEASE REFER TO NUTRITION ASSESSMENT UNDER CARE ACTIVITY FOR ESTIMATED NUTRITIONAL NEEDS. 1. CONTINUE NPO PER MD 2. WHEN/IF MEDICALLY APPROPRIATE TO BEGIN TF, RECOMMEND GLUCERNA 1.2 AT GOAL RATE 80 ML/HR, FWF 160 ML Q4H TOLERATED, PROSOURCE BID FOR LOW TIM SUPPORT. (PROVIDES 120 KCAL AND 30 GM PROTEIN DAILY) - WITH PROSOURCE BID, PROVIDES 1920 ML TOTAL VOLUME, 2424 KCAL, 145 GM PROTEIN AND 2506 ML FREE WATER DAILY MEETING 96% ESTIMATED KCAL NEEDS AND 100% ESTIMATED PROTEIN NEEDS; ADEQUATE - START TF AT 2O ML/HR INCREASE BY 2O ML Q4H UNTIL GOAL IS REACHED TOLERATED 3. MONITOR GI SYMPTOMS, GASTRIC RESIDUALS AND NUTRITION RELATED LAB VALUES 4. CONSULT RD PRN 5. RD TO FOLLOW-UP 2-3 DAYS, HIGH RISK REVIEWED BY RHETT HOUSTON RD
--- NOTE | 2022-12-03 16:45 | NUR ---
with liquid BM x1 dany care done, wound dressing changed, turned and repositioned
[2022-12-03] MEDS ORDERED: VANCOMYCIN PER PHARMACY MC PRN (18:25)
--- NOTE | 2022-12-03 20:00 | NUR ---
Received in semi fowlers position, opens eyes spontaneously, tracks, unable to follow commands, in no distress, trach/vent, tolerating vent settings, SR on monitor with 1st degree AVB w/o ectopy, GT intact with feedings of Glucerna @ 20 ml/hr to titrate 20 ml q 4 hour to goal rate of 80 ml/hr, no n/v noted, incontinent of dark brown liq BM large amount, romo cath intact, draining light mario urine with sediments, complete care rendered, CHG bath done
--- NOTE | 2022-12-03 20:30 | NUR ---
Bilateral hip reddened, left hip redness > than right, warm to touch, no open areas noted
--- NOTE | 2022-12-03 21:00 | NUR ---
Colace held, (+) diarrhea, remains w/o signs of pain or discomfort noted
[2022-12-03] MEDS: CEFEPIME 1,000 MG in DEXTROSE 5% 50 ML IV SCH (21:04)
[2022-12-03] MEDS: VANCOMYCIN 1,000 MG in DEXTROSE 5% 250 ML IV SCH (21:04)
[2022-12-03 22:28] LABS: BARBITURATE, URINE NEGATIVE ng/ml (NEG <=200); BENZODIAZEPINE, URINE NEGATIVE ng/mL (NEG <=200)
[2022-12-03 22:29] LABS: CANNABINOID, URINE NEGATIVE ng/mL (NEG <=50); COCAINE, URINE NEGATIVE ng/mL (NEG <=300); OPIATE, URINE POSITIVE ng/mL (NEG <=2000); PHENCYCLIDINE SCREEN,URINE NEGATIVE ng/mL (NEG <=25)
[2022-12-04] VITALS (16 sets, daily range): BP systolic 103–133; BP diastolic 62–98
[2022-12-04] MEDS: CEFEPIME 1,000 MG in DEXTROSE 5% 50 ML IV SCH ×3 (05:00→22:07)
[2022-12-04 05:55] LABS: BASOPHILS % (AUTO) 0.9 % (0.0-2.0); EOSINOPHILS # (AUTO) 0.2 K/uL (0-0.4); EOSINOPHILS % (AUTO) 4.5 % (0.0-4.0); HEMATOCRIT 27.9 % (36-52); HEMOGLOBIN 9.6 g/dL (12.0-18.0); LYMPHOCYTES # (AUTO) 0.7 K/uL (2.0-11.5); LYMPHOCYTES % (AUTO) 17.1 % (20.5-51.1); MEAN CORPUSCULAR HEMOGLOBIN 31 pg (27-31); MEAN CORPUSCULAR HGB CONC 35 g/dL (33-37); MEAN CORPUSCULAR VOLUME 90.5 fL (80-94); MONOCYTES # (AUTO) 0.5 K/uL (0.8-1.0); NEUTROPHILS # (AUTO) 2.9 K/uL (1.8-7.7); NEUTROPHILS % (AUTO) 66.5 % (42.2-75.2); PLATELET COUNT (AUTO) 129 K/uL (140-450); RED BLOOD CELL COUNT(AUTO) 3.09 MIL/uL (4.20-6.10); RED CELL DISTRIBUTION WIDTH 15.2 % (11.6-13.7); WHITE BLOOD COUNT (AUTO) 4.3 K/uL (4.8-10.8)
[2022-12-04 06:02] LABS: MAGNESIUM 1.9 mg/dL (1.8-2.4); PHOSPHORUS 3.3 mg/dL (2.5-4.9)
[2022-12-04 06:12] LABS: ANION GAP 11.2 (8-16); CARBON DIOXIDE 27.2 mmol/L (21-32); CREATININE 0.7 mg/dL (0.6-1.3); POTASSIUM 3.4 mmol/L (3.5-5.1)
[2022-12-04] MEDS: VANCOMYCIN 1,000 MG in DEXTROSE 5% 250 ML IV SCH ×3 (06:25→22:32)
--- NOTE | 2022-12-04 06:35 | NUR ---
RECEIVED PT ON SIMV 500,F12,15/5, 24%. VENT WHEELS ARE LOCKED, PLUGGED INTO RED OUTLET, AMBUBAG AT BEDSIDE, ALARMS ARE SET AND AUDIBLE. SATURATION 95%, BREATH SOUNDS WERE CLEAR. SCANT SECRETIONS SUCTIONED OUT. WILL CONTINUE TO MONITOR
[2022-12-04] MEDS ORDERED: POTASSIUM CHLORIDE 20% 40 MEQ/15 ML UDC GT SCH (07:31)
--- NOTE | 2022-12-04 07:32 | NUR ---
RECEIVED BEDSIDE REPORT FROM [employer]NOR CUSTOMER ACCOUNT MANAGER CREDIT ANALYST, FOR CONTINUITY OF CARE. PT A/OX0, NONVERBAL, ABLE TO TRACK, OPENS EYES SPONTANEOUSLY. TRACH TO VENT, SIMV VC, FIO2 28%,TV 400, R 12, PEEP 5. SR ON MONITOR, R FEMORAL TLC INFUSING NS AT 75 ML/HR. PERIPHERAL IV'S TO RH AND RFA 20G SALINE LOCKED. MEADOWS CATHETER PATENT, TO GRAVITY, DRAINING CLOUDY YELLOW URINE. PEG TUBE IN PLACE INFUSING GLUCERNA TUBE FEEDING AT 60ML/HR WITH A GOAL OF 80ML/HR. SKIN NOT INTACT, SEE WOUND ASSESSMENT. GENERALIZED WEAKNESS. SCD'S IN PLACE, HEEL PROTECTOR BOOTS. BED LOCKED AND IN LOWEST POSITION, SEMI-JACKSON'S.
--- NOTE | 2022-12-04 07:32 | NUR ---
Endorsed to Bella KOHLI
--- NOTE | 2022-12-04 07:35 | NUR ---
SEEN AND EXAMINED BY DR. JORGENSEN. ORDERS RECEIVED.
[2022-12-04] MEDS: LACTULOSE 20 GM/30 ML UDC PO SCH (08:05)
[2022-12-04] MEDS: PANTOPRAZOLE 40 MG INJ VIAL IVP SCH (08:06)
[2022-12-04] MEDS ORDERED: INSULIN LISPRO SLIDING SCALE 100 UNITS/ML VIAL SUBQ PRN (10:00)
[2022-12-04] MEDS ORDERED: DEXTROSE 50% 50 ML SYR IVP PRN (10:00)
--- NOTE | 2022-12-04 10:35 | NUR ---
WOUND CARE EVALUATION NOTE: SKIN ASSESSMENT DONE WITH THIS 62 Y/O PT ADMITTED [place] [facility] [place] INITIAL DX UTI AND FEVER. PAST MEDICAL HISTORY CHRONIC RESPIRATORY FAILURE, CURRENTLY ON TRACH AND VENT, CVA, FUNCTIONAL QUADRIPLEGIA, PRESSURE ULCERS, HTN, TYPE 2 DIABETES, CHRONIC MEADOWS, PEG TUBE. PT. ADMITTED WITH PRESSURE INJURIES. PT EYES OPEN WHEN TOUCH. SKIN IS WARM AND DRY, BLE HAIR GROWTH, +2 EDEMA. DORSAL PEDAL PULSES PRESENT AND NORMAL. CAPILLARY REFILLED < 2 SEC. X 10 TOES. INCONTINENT OF BOWEL X1 DURING ASSESSMENT. F/C PATENT WITH MODERATE AMOUNT YELLOW COLOR URINE OUT PUT OBSERVED. PLAN OF CARE DISCUSSED WITH PRIMARY RN HERMINIO. INTEGUMENTARY: -ORAL MEMBRANE PINK INTACT, LIPS, CHEEKS SKIN DRY, NO OPEN WOUNDS -TRACH SITE MONSTER STOMA SKIN DRY AND CLEAN. SKIN INTACT. - PEG TUB SITE MONSTER STOMA WITH SKIN INTACT. -BILATERAL LOWER EXTREMITIES FROM HIP TO LATERAL THIGHS ERYTHEMA, SKIN INTACT, WARM TO TOUCH. -MOISTURE ASSOCIATED SKIN DAMAGE(MASD) TO: MONSTER-ANAL TO POSTERIOR SCROTAL, SKIN RED -PRESSURE INJURY STAGE 3, SACROCOCCYX 2X1X0.3CM, WOUND BED IS RED 100% GRANULATING TISSUE, MOIST NO ODOR, MONSTER WOUND SKIN INTACT MOIST WITH NON-BLANCHABLE REDNESS, FURTHER DAMAGE INDICATED. -PRESSURE INJURY LEFT BUTTOCK 10X3CM SUPERFICIAL DEPTH, MOIST, NO ODOR, MONSTER WOUND SKIN MOIST NON-BLANCHABLE, FURTHER DAMAGE INDICATED. -PRESSURE INJURY STAGE 2 RIGHT BUTTOCK 2X1CM SUPERFICIAL DEPTH WOUND BED PINK, NO ODOR, MOIST WITH SURROUNDING 3X4CM DTI 100% MAROON COLOR, MONSTER WOUND SKIN INTACT, FURTHER DAMAGE INDICATED. -BILATERAL HEELS MUSHY WITH BLANCHABLE REDNESS. -LEFT HALLUX INFECTED INGROWN TOENAIL, SMALL AMOUNT PURULENT DRAINAGE, MONSTER WOUND SKIN INTACT. RECOMMENDATIONS: -PODIATRY CONSULT -APPLY HYDRAGUARD TO BILATERAL LOWER EXTREMITIES FROM HIP TO LATERAL THIGHS BID AND PRN IF SOILING -APPLY THIN LAYER OF Z GUARD TO MONSTER-ANAL TO POSTERIOR SCROTAL BID AND PRN IF SOILING -CLEANSE COCCYX, LEFT AND RIGHT BUTTOCKS WOUND WITH WOUND CARE SOLUTION PAT DRY, APPLY THERAHONEY GEL AND COVER WITH FOAM DRESSING DAILY AND PRN IF SOILING -APPLY SKIN PREP WIPE TO BILATERAL HEELS BID AND KEMAR -HEEL RAISER TO BILATERAL HEELS WITH OFFLOADING -POSITIONING: TURN AND REPOSITION PATIENT Q 2H OR SOONER USE PILLOWS TO KEEP BONY PROMINENCES FROM DIRECT CONTACT WITH SURFACES USE REPOSITIONING WEDGES TO PROVIDE 30-DEGREE ANGLE FOR SIDE LYING POSITIONS OFFLOADING OR FOAM DRESSING TO ALL TUBING TO PREVENT MEDICAL DEVICES RELATED PRESSURE INJURY -RE-EVALUATING AND MANAGING INCONTINENCE MONITOR SKIN CONDITION DURING POSITION CHANGE DO NOT MASSAGE REDNESS, BONY PROMINENCES FREQUENT MONSTER-CARE AND PROVIDE BARRIER CREAMS PRN IF SOILING MOISTURE CONTROL BY OFFER BED JOHN/URINAL /ABSORBENT PAD TO WICK AND HOLD MOISTURE. MAY OBTAIN ORDER FOR FLEX SEAL, RECTAL BAG OR MEADOWS CATHETER PER PHYSICIAN ORDER UNLESS OTHERWISE CONTRAINDICATED KEEP SKIN DRY AND PROTECT FROM FRICTION -MANAGE FRICTION/SHEAR/MOBILITY KEEP HOB AT THE LOWEST LEVEL OF ELEVATION NO MORE THAN 30 DEGREES UNLESS OTHERWISE CONTRAINDICATED USE LIFT SHEET OR TRANSFER DEVICE TO MOVE PATIENT AND PREVENT LATERAL SHEER. PROTECT HEELS, ELBOWS BONY PROMINENCES WITH SKIN BERRIES OR FOAM DRESSING IF EXPOSED TO FRICTION OFFLOAD BILATERAL HEELS BY PLACING PILLOWS UNDER CALVES AT ALL TIMES, UNLESS OTHERWISE CONTRAINDICATED -PRESSURE REDISTRIBUTION SURFACE THERAPY AREN ISOFLEX ROSA ELENA MATTRESS -NUTRITION: PLEASE FOLLOW RD RECOMMENDATIONS AND OFFER NUTRITION SUPPLEMENTS IF ORDERED. Addendum: 12/04/22 at 1217 by Mario Dave RN (Grace) ADD: CLEANSE LEFT HALLUX WITH WOUND CARE SOLUTION, PAT DRY, PAINT WITH BETADINE BID AND SKIN DIVER
--- NOTE | 2022-12-04 10:35 | NUR ---
EDIT:PRESSURE INJURY STAGE 2 LEFT BUTTOCK 10X3CM SUPERFICIAL DEPTH, MOIST, NO ODOR, MONSTER WOUND SKIN MOIST NON-BLANCHABLE, FURTHER DAMAGE INDICATED
[2022-12-04] MEDS: NACL 0.9% 1,000 ML IV SCH ×2 (10:40→20:15)
--- NOTE | 2022-12-04 12:10 | NUR ---
SEEN AND EXAMINED BY TORI CONTRERAS NEW ORDERS. Addendum: 12/04/22 at 1309 by Rozina Garner RN ORDERS TO DC FEMORAL CENTRAL LINE
[2022-12-04] MEDS: BLOOD GLUCOSE MONITORING 1 DEV DEV FS SCH ×2 (12:30→18:03)
[2022-12-04] MEDS: Z-GUARD PASTE TP SCH (12:31)
[2022-12-04] MEDS: GAUZE TP SCH (12:32)
[2022-12-04] MEDS: HYDRAGUARD CREAM TP SCH (13:47)
[2022-12-04] MEDS: THERAHONEY GEL 42.5 GM TP SCH (13:47)
--- NOTE | 2022-12-04 14:00 | NUR ---
D/C R FEMORAL CENTRAL LINE. PT TOLERATED WELL. SWITCHED FLUIDS TO PERIPHERAL IV 20G R FA.
--- NOTE | 2022-12-04 16:40 | NUR ---
DC PLANNING COLLAT INFO GATHERED FROM SUZANNE [facility] [place]. SUZANNE REPORTS PT IS IN SUBACUTE CARE WITH [facility], ADMISSION DATE 11/10/19'. SUZANNE IDENTIFIED GASPER ELLSWORTH, EC AND MDM AND TONY DU, SON IN LAW, . PT IS FOLLOWED BY DR RAMESH AT [facility]. PT IS REPORTED TO BE TOTAL CARE AT [facility]. SUZANNE REPORTS PTS FAMILY IS ACTIVE IN CARE AND ARE AWARE THAT PT IS ADMITTED TO [facility]. PT HAS HX OF DIABETES THAT IS WELL MANAGED BY [facility]. SUZANNE REPORTS DC PLAN IF FOR PT TO RETURN TO [facility], ONCE MEDICALLY STABLE. Addendum: 12/04/22 at 1641 by Josefa BLOOM Amended: Links added.
--- NOTE | 2022-12-04 18:02 | NUR ---
CHANGED FEEDING TUBE TUBING AND CONTAINER.
--- NOTE | 2022-12-04 19:20 | NUR ---
RECEIVED ENDORSEMENT FROM DAY SHIFT NURSE. PT IS ON BED, AWAKE AND RESPONSIVE. PT IS ON TRACH TO VENT, NON VERBAL AND ABLE TO RESPONSE. PT IS ON GTUBE FEEDING OF GLUCERNA 1.2. IV SITE HEPLOCK IS ON RIGHT HAND AND RIGHT FOREARM 20G IS INFUSING NORMAL SALINE AT 75ML/HR, INTACT AND PATENT. TRACT TO VENT IS INTACT.
--- NOTE | 2022-12-04 19:29 | NUR ---
PT WAS TRANSPORTED FROM ICU TO THE TELE FLOOR. PT TOLERATED TRANSPORT WELL. VENT WAS CONNECTED BACK INTO RED OUTLET. AIRWAY IS PATENT. SUCTION MODERATE AMOUNT OF WHITE/YELLOW THICK SECRETIONS FROM TRACH TUBE. PT IN NO RESPIRATORY DISTRESS AT THIS TIME. VENT CHECK DONE.
--- NOTE | 2022-12-04 19:36 | NUR ---
PT TRANSFERRED WITH RT AND COMMERCIAL UNDERWRITER ASSIST TO 123B. ENDORSED BEDSIDE REPORT TO JIMENA PORTABLE TRACK LINE MARKER RN, FOR CONTINUITY OF CARE.
[2022-12-05] VITALS: BP 102/55
--- NOTE | 2022-12-05 | NUR ---
BLOOD SUGAR CHECKED = 128, NO SLIDING SCALE COVERAGE. NO INSULIN NEEDED.
[2022-12-05] MEDS: GAUZE TP SCH ×2 (01:43→13:04)
[2022-12-05] MEDS: HYDRAGUARD CREAM TP SCH ×2 (01:44→13:04)
[2022-12-05] MEDS: Z-GUARD PASTE TP SCH ×2 (01:45→13:04)
[2022-12-05 04:00] VITALS: BP 120/75
[2022-12-05] MEDS: CEFEPIME 1,000 MG in DEXTROSE 5% 50 ML IV SCH ×3 (05:50→20:41)
[2022-12-05 05:53] LABS: EOSINOPHILS # (AUTO) 0.2 K/uL (0-0.4); EOSINOPHILS % (AUTO) 7.3 % (0.0-4.0); HEMATOCRIT 28.4 % (36-52); HEMOGLOBIN 9.7 g/dL (12.0-18.0); LYMPHOCYTES # (AUTO) 0.8 K/uL (2.0-11.5); LYMPHOCYTES % (AUTO) 25.3 % (20.5-51.1); MEAN CORPUSCULAR HEMOGLOBIN 31 pg (27-31); MEAN CORPUSCULAR HGB CONC 34 g/dL (33-37); MEAN CORPUSCULAR VOLUME 90.6 fL (80-94); MONOCYTES # (AUTO) 0.5 K/uL (0.8-1.0); MONOCYTES % (AUTO) 13.9 % (1.7-9.3); NEUTROPHILS # (AUTO) 1.7 K/uL (1.8-7.7); NEUTROPHILS % (AUTO) 52.5 % (42.2-75.2); PLATELET COUNT (AUTO) 131 K/uL (140-450); RED BLOOD CELL COUNT(AUTO) 3.14 MIL/uL (4.20-6.10); WHITE BLOOD COUNT (AUTO) 3.3 K/uL (4.8-10.8)
[2022-12-05 06:08] LABS: MAGNESIUM 1.9 mg/dL (1.8-2.4); PHOSPHORUS 2.7 mg/dL (2.5-4.9)
[2022-12-05] MEDS: BLOOD GLUCOSE MONITORING 1 DEV DEV FS SCH ×4 (06:09→18:34)
--- NOTE | 2022-12-05 06:09 | NUR ---
BLOOD SUGAR CHECKED = 113, NO SLIDING SCALE COVERAGE, NO INSULIN NEEDED.
[2022-12-05] MEDS: VANCOMYCIN 1,000 MG in DEXTROSE 5% 250 ML IV SCH ×2 (06:11→14:08)
[2022-12-05 06:38] LABS: ANION GAP 7.8 (8-16); CARBON DIOXIDE 27.9 mmol/L (21-32); CREATININE 0.8 mg/dL (0.6-1.3); POTASSIUM 3.7 mmol/L (3.5-5.1)
--- NOTE | 2022-12-05 07:20 | NUR ---
PT IS ON STABLE CONDITION. NO SOB OR DISTRESS. ALL SAFETY MEASURES ARE IN PLACE. ENDORSED TO DAY SHIFT NURSE EDENILSON FOR CONTINUITY OF CARE.
--- NOTE | 2022-12-05 07:30 | NUR ---
RECEIVED PT ON SIMV 500,F12,+03/17, 24%. VENT WHEELS ARE LOCKED, PLUGGED INTO RED OUTLET, AMBUBAG AT BEDSIDE, ALARMS ARE SET AND AUDIBLE. SATURATION 98%. BREATH SOUNDS WERE COARSE. SUCTIONED OUT MODERATE AMOUNT OF PALE WHITE SECRETIONS. WILL CONTINUE TO MONITOR.
[2022-12-05 08:00] VITALS: BP 120/70
[2022-12-05] MEDS: PANTOPRAZOLE 40 MG INJ VIAL IVP SCH (09:32)
[2022-12-05] MEDS: LACTULOSE 20 GM/30 ML UDC PO SCH (09:32)
[2022-12-05 12:00] VITALS: BP 133/75
--- NOTE | 2022-12-05 12:21 | NUR ---
RECENT VENT CHECK. NOTICED PT LOOKED A LITTLE RED. PT HAS 99.9 TEMP. NOTIFIED NURSE.
[2022-12-05] MEDS: NACL 0.9% 1,000 ML IV SCH ×2 (13:03→22:12)
[2022-12-05] MEDS: THERAHONEY GEL 42.5 GM TP SCH (13:07)
--- NOTE | 2022-12-05 15:25 | NUR ---
12/05/22 RD FOLLOW UP COMPLETED PLEASE REFER TO NUTRITION ASSESSMENT UNDER CARE ACTIVITY FOR ESTIMATED NUTRITIONAL NEEDS. 1. CONTINUE GLUCERNA 1.2 AT GOAL RATE 80 ML/HR, FWF 160 ML Q4H TOLERATED, PROSOURCE BID FOR LOW TIM SUPPORT. (PROVIDES 120 KCAL AND 30 GM PROTEIN DAILY) - WITH PROSOURCE BID, PROVIDES 1920 ML TOTAL VOLUME, 2424 KCAL, 145 GM PROTEIN AND 2506 ML FREE WATER DAILY MEETING 97% ESTIMATED KCAL NEEDS AND 100% ESTIMATED PROTEIN NEEDS; ADEQUATE 2. MONITOR GI SYMPTOMS, GASTRIC RESIDUALS AND NUTRITION RELATED LAB VALUES - IF DIARRHEA PERSISTS, RECOMMEND BANATROL TID 3. CONSULT RD PRN 4. RD TO FOLLOW-UP 2-3 DAYS, HIGH RISK REVIEWED BY RHETT HOUSTON RD
[2022-12-05 16:00] VITALS: BP 144/84
--- NOTE | 2022-12-05 19:10 | NUR ---
RECEIVED PT IN BED AWAKE. TRACH TO VENT WITH SETTING ORDERED. G-TUBE PLACEMENT VERIFIED VIA AUSCULTATION, NO RESIDUAL NOTED, HEAD OF THE BED ELEVATED. SKIN WARM AND DRY TO TOUCH. MEADOWS CATHETER DRAINING YELLOW URINE BY GRAVITY. BED IN THE LOWEST AND LOCKED POSITION FOR SAFETY, CALL LIGHT IN REACH.
[2022-12-05 20:00] VITALS: BP 148/85
--- NOTE | 2022-12-05 21:00 | NUR ---
PATIENT HAD A LARGE STOOL, CLEANED PT. REPOSITIONED FOR COMFORT. ORAL CARE DONE.
--- NOTE | 2022-12-05 22:40 | NUR ---
SPOKE WITH PHARMACIST FROM [place] TO GIVE 0200 DOSE OF VANCO IV.
[2022-12-06] VITALS: BP 126/66
--- NOTE | 2022-12-06 | NUR ---
NO RESIDUAL FROM G-TUBE, HEAD OF THE BED ELEVATED. REPOSITIONED PT.
[2022-12-06] MEDS: GAUZE TP SCH ×2 (00:16→14:46)
[2022-12-06] MEDS: Z-GUARD PASTE TP SCH ×2 (00:16→14:46)
[2022-12-06] MEDS: BLOOD GLUCOSE MONITORING 1 DEV DEV FS SCH ×4 (00:16→17:37)
[2022-12-06] MEDS: HYDRAGUARD CREAM TP SCH ×2 (00:16→14:46)
[2022-12-06] MEDS: VANCOMYCIN HCL 1.25 GM in DEXTROSE 5% 250 ML IV SCH ×2 (01:34→14:45)
[2022-12-06 04:00] VITALS: BP 147/83
[2022-12-06] MEDS: CEFEPIME 1,000 MG in DEXTROSE 5% 50 ML IV SCH (04:40)
[2022-12-06 05:51] LABS: HEMATOCRIT 30.7 % (36-52); HEMOGLOBIN 10.6 g/dL (12.0-18.0); MEAN CORPUSCULAR HEMOGLOBIN 31 pg (27-31); MEAN CORPUSCULAR HGB CONC 35 g/dL (33-37); MEAN CORPUSCULAR VOLUME 90.4 fL (80-94); PLATELET COUNT (AUTO) 158 K/uL (140-450); RED BLOOD CELL COUNT(AUTO) 3.39 MIL/uL (4.20-6.10); WHITE BLOOD COUNT (AUTO) 3.5 K/uL (4.8-10.8)
[2022-12-06 05:57] LABS: ANION GAP 10.9 (8-16); CARBON DIOXIDE 26.9 mmol/L (21-32); CREATININE 0.8 mg/dL (0.6-1.3); POTASSIUM 3.8 mmol/L (3.5-5.1)
[2022-12-06 06:06] LABS: MAGNESIUM 1.9 mg/dL (1.8-2.4); PHOSPHORUS 3.1 mg/dL (2.5-4.9)
--- NOTE | 2022-12-06 06:09 | NUR ---
PATIENT IS ASLEEP. NO ACUTE RESPIRATORY DISTRESS. ALL NEEDS ATTENDED TO. SAFETY PRECAUTIONS IN PLACE, CALL LIGHT IN REACH.
[2022-12-06 06:34] LABS: MYELOCYTES % 1 % (0-0); PROMYELOCYTES % 1 % (0-0)
[2022-12-06 07:41] VITALS: BP 120/70
[2022-12-06 08:00] VITALS: BP 120/70
[2022-12-06] MEDS: LACTULOSE 20 GM/30 ML UDC PO SCH (09:19)
[2022-12-06] MEDS: PANTOPRAZOLE 40 MG INJ VIAL IVP SCH (09:19)
[2022-12-06] MEDS ORDERED: LACT10SO11 PO (10:27)
[2022-12-06] MEDS ORDERED: MERO1VIA15 IV (10:27)
[2022-12-06 12:00] VITALS: BP 119/64
[2022-12-06] MEDS: NACL 0.9% 1,000 ML IV SCH (12:15)
[2022-12-06] MEDS: THERAHONEY GEL 42.5 GM TP SCH (14:46)
--- NOTE | 2022-12-06 14:51 | NUR ---
DC PLANNING: PATIENT [place] DC [place] [facility] [place] ALL THE [place]AP[place] [facility] [place] SPOKE WITH SUZANNE HARPER UP TIME 7 PM. # TO GIVE REPORT [phone] NOTIFIED EDENILSON MIRAMONTES CM TO FOLLOW
[2022-12-06 16:00] VITALS: BP 136/84
--- NOTE | 2022-12-06 16:05 | NUR ---
HEAD ANIMAL KEEPER, , GINNY WILL BE AVAILABLE FOR 30 DAYS ON THIS CASE. SHE SAYS TO CALL HER IF THERE IS ANY PROBLEM WITH TRANSPORTATION AND DISCHARGE.
--- NOTE | 2022-12-06 18:34 | NUR ---
Spoke with Aubrey , Senior Operator RN at [facility] for nurse report.
--- NOTE | 2022-12-06 19:28 | NUR ---
HANDOFF REPORT TO MITZI HAWKINS RN.
--- NOTE | 2022-12-06 20:27 | NUR ---
PT WAS READY TO TRANSFER TO [facility] [place].[facility] CAME AND PICKED UP PT IN STABLE CONDITION.
== END 2022-12-06 20:25 | DRG 720 ==
LOC: MED 23:19 → OBSVTOIN 12-03 04:04 → MMU 12-03 04:04 → UNDOADMIN 12-03 04:04 → MMU 12-03 04:04 → MIC 12-03 05:59 → MTU 12-04 19:15
PROC: 06HY33Z Insertion of Infusion Device into Lower Vein, Percutaneous Approach (ICD-10-PCS; principal; 2022-12-02)
PROC: 5A1945Z Respiratory Ventilation, 24-96 Consecutive Hours (ICD-10-PCS; 2022-12-02)
PROC: B54MZZA Ultrasonography of Right Upper Extremity Veins, Guidance (ICD-10-PCS; 2022-12-02)
DX: A41.9 Sepsis, unspecified organism (principal); J96.21 Acute and chronic respiratory failure with hypoxia; R65.21 Severe sepsis with septic shock; G93.41 Metabolic encephalopathy; J15.1 Pneumonia due to Pseudomonas; E44.1 Mild protein-calorie malnutrition; L89.150 Pressure ulcer of sacral region, unstageable; K76.82 Hepatic encephalopathy; R53.2 Functional quadriplegia; R13.10 Dysphagia, unspecified; Z20.822 Contact with and (suspected) exposure to COVID-19; N39.0 Urinary tract infection, site not specified; E66.9 Obesity, unspecified; Z93.0 Tracheostomy status; Z93.1 Gastrostomy status; Z86.73 Personal history of transient ischemic attack (TIA), and cerebral infarction without residual deficits; Z68.32 Body mass index [BMI] 32.0-32.9, adult; Z99.11 Dependence on respirator [ventilator] status; E11.9 Type 2 diabetes mellitus without complications; I10 Essential (primary) hypertension
CPT/HCPCS: 36415; 36556; 71045; 80048; 80053; 80202; 80305; 81001; 82140; 82150; 82948; 83036; 83605; 83690; 83735; 83880; 84100; 84439; 84443; 84484; 85025; 85610; 85730; 87040; 87070; 87081; 87086; 87205; 89220; 93005; 94002; 94003; 96361; 96365; 96367; 99291; C9113; J0692; J1644; J1815; J3370; J3490; J7060; Q0092

== ENCOUNTER 2023-01-02 14:29 | Inpatient (IN) | payer OTHER ==
[~2023-01-02] VITALS: Ht 180.3 cm; Wt 99.8 kg
[~2023-01-02 14:29] MED LIST changes: +ACET-8905 GT; +ASCO500T95 PO; +CHOL100013 GT; -CRAN450T5 GT; +DOCU-299 GT; +FERR220E24 PO; +LACT10SO11 PO; +LID5T TP; +MEDI30SO GT; +MERO1VIA15 IV; +SCOP0.333 TD; +TAMS0.4C96 GT; -VANC1PLA7 IV; -ZOS3.375PM IV
--- NOTE | 2023-01-02 14:31 | NUR ---
pt placed in bed 07 by [facility]
[2023-01-02 14:38] VITALS: BP 117/69
--- NOTE | 2023-01-02 14:40 | NUR ---
PT BROUGHT IN BY EMS. TRACH TO VENT. VENT SETTING PER FACILITY ARE SIMV VT400, F12,+5, PS 10, 28%. WILL CONTINUE TO MONITOR. PT IS RESTING COMFORTABLY. NO DISTRESS NOTED. WILL CONTINUE TO MONITOR.
--- NOTE | 2023-01-02 14:56 | NUR ---
PT BIB [facility] FROM [facility] C/O ABDOMINAL DISTENTION R/O SBO. PT TRACH TO VENT, FOLLOWS COMMANDS. PER STAFF [place] [facility] 0630 THIS AM
[2023-01-02 15:17] LABS: BASOPHILS % (AUTO) 0.8 % (0.0-2.0); EOSINOPHILS # (AUTO) 0.2 K/uL (0-0.4); EOSINOPHILS % (AUTO) 5.2 % (0.0-4.0); HEMATOCRIT 36.8 % (36-52); HEMOGLOBIN 12.5 g/dL (12.0-18.0); LYMPHOCYTES # (AUTO) 0.9 K/uL (2.0-11.5); LYMPHOCYTES % (AUTO) 19.8 % (20.5-51.1); MEAN CORPUSCULAR HEMOGLOBIN 31 pg (27-31); MEAN CORPUSCULAR HGB CONC 34 g/dL (33-37); MEAN CORPUSCULAR VOLUME 91.7 fL (80-94); MONOCYTES # (AUTO) 0.4 K/uL (0.8-1.0); MONOCYTES % (AUTO) 9.7 % (1.7-9.3); NEUTROPHILS # (AUTO) 2.9 K/uL (1.8-7.7); NEUTROPHILS % (AUTO) 64.5 % (42.2-75.2); PLATELET COUNT (AUTO) 140 K/uL (140-450); RED BLOOD CELL COUNT(AUTO) 4.02 MIL/uL (4.20-6.10); RED CELL DISTRIBUTION WIDTH 15.3 % (11.6-13.7); WHITE BLOOD COUNT (AUTO) 4.4 K/uL (4.8-10.8)
[2023-01-02 15:32] LABS: PROTHROMBIN TIME 12.2 secs (10.8-13.4)
[2023-01-02 15:41] LABS: ALBUMIN 3.6 g/dL (3.4-5.0); ANION GAP 11.9 (8-16); CARBON DIOXIDE 31.8 mmol/L (21-32); CREATININE 0.8 mg/dL (0.6-1.3); POTASSIUM 3.7 mmol/L (3.5-5.1); TOTAL BILIRUBIN 0.6 mg/dL (0.0-1.0)
[2023-01-02 16:14] LABS: BILIRUBIN,URINE NEGATIVE (NEGATIVE); BLOOD, URINE 2+ (NEGATIVE); COLOR,URINE YELLOW (YELLOW); LEUKOCYTE ESTERASE ,URINE 3+ (NEGATIVE); NITRITE, URINE NEGATIVE (NEGATIVE); PH,URINE 7.5 (5.0-9.0); UGLUCOSE NEGATIVE (NEGATIVE)
[2023-01-02 16:31] LABS: APPEARANCE,URINE CLOUDY (CLEAR)
[2023-01-02] MEDS ORDERED: NACL 0.9% 1,000 ML IV ONE (16:40)
[2023-01-02] MEDS ORDERED: cefTRIAXone 2,000 MG in DEXTROSE 5% 100 ML IV ONE (16:40)
[2023-01-02 17:05] LABS: RBC,URINE 0-5 /HPF (0-5); WBC,URINE 80-100 /HPF (0-5)
[2023-01-02] MEDS ORDERED: cefTRIAXone 2,000 MG VIAL ONE (17:18)
--- NOTE | 2023-01-02 18:15 | NUR ---
ADMISSION OF A 62 YEAR OLD MALE UNDER THE CARE OF DOCTOR PHAM FOR ABDOMINAL PAIN, UTI, AND MESENTERITIS.
--- NOTE | 2023-01-02 18:17 | NUR ---
PT ADMITTED TO 122A BEDSIDE REPORT GIVEN TO EDENILSON KOHLI STABLE ON TX OF CARE
[2023-01-02 18:27] VITALS: BP 132/64
[2023-01-02] MEDS ORDERED: ONDANSETRON 4 MG/2 ML VIAL IM/IVP PRN (19:20)
[2023-01-02] MEDS ORDERED: DOCUSATE SODIUM 100 MG GELCAP PO PRN (19:20)
[2023-01-02] MEDS ORDERED: guaiFENesin DM 200/20 MG-10 ML 10 ML UDC PO PRN (19:20)
[2023-01-02] MEDS ORDERED: ACETAMINOPHEN 325 MG TAB PO PRN (19:20)
[2023-01-02] MEDS ORDERED: ZOLPIDEM 5 MG TAB PO PRN (19:20)
[2023-01-02] MEDS ORDERED: HYDROcodone/APAP 7.5/325 MG 1 TAB PO PRN (19:20)
--- NOTE | 2023-01-02 19:20 | NUR ---
RECEIVED PT IN BED AWAKE AND NON-VERBAL. NO S/SX OF PAIN NOR DISCOMFORT. TRACH TO VENT WITH SETTING ORDERED SAT 99%. G-TUBE IN PLACE, PLACEMENT VERIFIED VIA AUSCULTATION, NPO EXCEPT MEDS AT THIS TIME. HEAD OF THE BED ELEVATED. SKIN WARM AND DRY TO TOUCH. ON BEDREST, MEADOWS CATHETER IN PLACE, DRAINING YELLOW URINE BY GRAVITY, CALL LIGHT IN REACH.
[2023-01-02] MEDS: DEXT 5% /NACL 0.9% 1,000 ML IV SCH (19:56)
[2023-01-02 20:00] VITALS: BP 141/81
[2023-01-02 20:03] LABS: PROTHROMBIN TIME 12.3 secs (10.8-13.4)
[2023-01-02 20:13] LABS: CHOL/HDL RATIO 3.8 (1-4.5); FREE T4 (FREE THYROXINE) 0.69 ng/dL (0.76-1.46); MAGNESIUM 2.1 mg/dL (1.8-2.4); PHOSPHORUS 3.7 mg/dL (2.5-4.9); THYROID STIMULATING HORMONE 5.65 uIU/mL (0.34-3.74)
[2023-01-02] MEDS ORDERED: PIPERACILLIN/TAZOBACTAM 3.375 GM VIAL IV ONE (23:01)
[2023-01-02] MEDS: PIPERACILLIN/TAZOBACTAM 3.375 GM in DEXTROSE 5% 50 ML IV SCH (23:02)
[2023-01-03] VITALS: BP 126/68
[2023-01-03] MEDS: DEXT 5% /NACL 0.9% 1,000 ML IV SCH ×4 (01:53→22:06)
[2023-01-03 04:00] VITALS: BP 115/68
[2023-01-03] MEDS ORDERED: PIPERACILLIN/TAZOBACTAM 3.375 GM VIAL IV ONE (04:59)
[2023-01-03] MEDS: PIPERACILLIN/TAZOBACTAM 3.375 GM in DEXTROSE 5% 50 ML IV SCH ×4 (05:08→23:06)
[2023-01-03 05:16] LABS: EOSINOPHILS # (AUTO) 0.3 K/uL (0-0.4); EOSINOPHILS % (AUTO) 8.5 % (0.0-4.0); HEMOGLOBIN 11.5 g/dL (12.0-18.0); LYMPHOCYTES # (AUTO) 0.8 K/uL (2.0-11.5); LYMPHOCYTES % (AUTO) 20.2 % (20.5-51.1); MEAN CORPUSCULAR HEMOGLOBIN 31 pg (27-31); MEAN CORPUSCULAR HGB CONC 34 g/dL (33-37); MEAN CORPUSCULAR VOLUME 91.1 fL (80-94); MONOCYTES # (AUTO) 0.4 K/uL (0.8-1.0); NEUTROPHILS # (AUTO) 2.2 K/uL (1.8-7.7); NEUTROPHILS % (AUTO) 58.3 % (42.2-75.2); PLATELET COUNT (AUTO) 123 K/uL (140-450); RED BLOOD CELL COUNT(AUTO) 3.73 MIL/uL (4.20-6.10); RED CELL DISTRIBUTION WIDTH 15.2 % (11.6-13.7); WHITE BLOOD COUNT (AUTO) 3.8 K/uL (4.8-10.8)
--- NOTE | 2023-01-03 05:39 | NUR ---
HAD A BOWEL MOVEMENT, AM CARE RENDERED. ORAL CARE DONE. G-TUBE SITE CLEANED AND CHANGED DRESSING. REPOSITIONED AND MADE COMFORTABLE IN BED. HEAD OF THE BED ELEVATED. CALL LIGHT PLACED WITHIN REACH.
[2023-01-03 06:02] LABS: ANION GAP 10.4 (8-16); CARBON DIOXIDE 30.1 mmol/L (21-32); CREATININE 0.7 mg/dL (0.6-1.3); POTASSIUM 3.5 mmol/L (3.5-5.1)
--- NOTE | 2023-01-03 06:29 | NUR ---
PATIENT IS ASLEEP. NO ACUTE RESPIRATORY DISTRESS NOTED. ALL NEEDS ATTENDED TO. SAFETY PRECAUTIONS IN PLACE, CALL LIGHT REMAINS WITHIN REACH.
[2023-01-03 08:00] VITALS: BP 114/77
[2023-01-03] MEDS: PANTOPRAZOLE 40 MG TABEC PO SCH (09:10)
--- NOTE | 2023-01-03 10:31 | NUR ---
PATIENT HAS BEEN SCREENED AND CATEGORIZED HIGH NUTRITION RISK. PATIENT WILL BE SEEN WITHIN 1-2 DAYS OF ADMISSION. RHETT HOUSTON RD
--- NOTE | 2023-01-03 11:46 | NUR ---
01/03/23 RD INITIAL ASSESSMENT COMPLETED PLEASE REFER TO NUTRITION ASSESSMENT UNDER CARE ACTIVITY FOR ESTIMATED NUTRITIONAL NEEDS. 1. WHEN/IF MEDICALLY APPROPRIATE TO START TF, RECOMMEND GLUCERNA 1.2 WITH A GOAL RATE OF 70ML/HR WITH FAWN BID PER RX PROTOCOL -FWF: 250ML Q6H OR PER MD -START AT 20ML/HR AND INCREASE BY 10ML Q4H TOLERATED -WITH FAWN BID, PT WILL RECEIVE 2176KCAL, 106G PROTEIN, AND 2352ML FREE WATER, MEETING 93% ESTIMATED KCAL AND 100% ESTIMATED PROTEIN NEEDS; ADEQUATE 2. MONITOR NPO STATUS 3. MONITOR NUTRITION-RELATED LAB VALUES AND GI SYMPTOMS 4. RD TO FOLLOW-UP 2-3 DAYS, HIGH RISK RHETT HOUSTON RD
[2023-01-03 12:00] VITALS: BP 110/74
--- NOTE | 2023-01-03 14:11 | NUR ---
WOUND CARE EVALUATION NOTE: SKIN ASSESSMENT DONE WITH PRIMARY RN EDENILSON ON THIS 62 Y/O PT ADMITTED FROM [facility] WITH INITIAL DX VOMITING WITH KUB RESULT OF ILEUS. PAST MEDICAL HISTORY CHRONIC RESPIRATORY FAILURE, ON TRACH AND VENT, CVA, FUNCTIONAL QUADRIPLEGIA, PRESSURE INJURY, HTN, TYPE 2 DIABETES, CHRONIC MEADOWS, PEG TUBE. PT. ADMITTED WITH PRESSURE INJURIES. SKIN IS WARM AND DRY, BLE HAIR GROWTH, +2 EDEMA. DORSAL PEDAL PULSES PRESENT AND NORMAL.INCONTINENT OF BOWEL X1 SMEAR STOOL DURING ASSESSMENT. F/C PATENT WITH MODERATE AMOUNT YELLOW COLOR URINE OUT PUT OBSERVED. PLAN OF CARE DISCUSSED WITH PRIMARY RN. INFORM DR. PHAM OF LEFT HALLUX INFECTED TOENAIL AND REQUEST PODIATRY CONSULT. INTEGUMENTARY: -ORAL MEMBRANE PINK INTACT, LIPS, CHEEKS SKIN DRY, NO OPEN WOUNDS -TRACH SITE MONSTER STOMA SKIN DRY AND CLEAN. SKIN INTACT. - PEG TUB SITE MONSTER STOMA WITH SKIN INTACT. -MOISTURE ASSOCIATED SKIN DAMAGE(MASD) TO: MONSTER-ANAL AND SCROTAL, SKIN RED, MOIST -PRESSURE INJURY STAGE 4, SACROCOCCYX 4X1X0.8CM, WOUND BED IS RED 100% GRANULATING TISSUE, MOIST NO ODOR, MONSTER WOUND SKIN MOIST WITH DTI EXTENDED TO RIGHT AND LEFT BUTTOCKS. RIGHT AND LEFT BUTTOCKS WITH MODERATE MASD MULTIPLE SKIN EROSIONS ON TOP OF DTI AREA, THE ENTIRE AREA [id number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ddendum: 01/03/23 at 1416 by Mario Dave RN (Grace) BILATERAL HEELS BLANCHABLE REDNESS, SKIN INTACT. HEEL RAISERS IN PLACE, WITH OFFLOADING. ALL ABOVE ASSESSMENT WERE DONE EARLIER THIS AM [id number]
--- NOTE | 2023-01-03 15:45 | NUR ---
DC PLANNING COLLAT INFO GATHERED FROM PTS DAUGHTER DEJAN. DEJAN REPORTS PT IS IN SUBACUTE CARE WITH [facility], ADMISSION DATE 11/10/19'. DEJAN REPORTS SHE IS PTS EMERGENCY CONTACT AND MDM HOWEVER REPORTS NO DPOA. DEJAN REQUESTED TONY KHORUY BE REMOVED FROM EMERGENCY CONTACT AND REQUESTED TO ADD FAMILY FRIEND REHANA LI, . PT IS REPORTED TO BE FOLLOWED BY DR RAMESH AT [facility] AND IS REPORTED TO BE TOTAL CARE AT [facility]. DEJAN REPORTS DC PLAN IF FOR PT TO RETURN TO [facility], ONCE MEDICALLY STABLE. Addendum: 01/03/23 at 1546 by Josefa BLOOM Amended: Links added. Addendum: 01/06/23 at 1524 by CONCEPCIÓN DIAZ CM MARIYA TREJO RECEIVED ORDER TO SEND PT BACK TO [facility]. FAXED PACKET TO [facility] LOCATED [id number] [id number] SPOKE TO SYDNEY AND PT WAS ACCEPTED GOING TO ROOM 22-A UNDER THE CARE OF DR JORGENSEN. [facility] SET UP WITH ASIYA AT [facility] FOR A [id number] HEMATOLOGY TECHNICIAN TIME. CONFIRMATION#[id number].NURSE CECILIA AND DAUGHTER GASPER AWARE OF THE ABOVE INFORMATION.
[2023-01-03 16:00] VITALS: BP 123/76
[2023-01-03] MEDS: THERAHONEY GEL 42.5 GM TP SCH (17:36)
--- NOTE | 2023-01-03 19:20 | NUR ---
RECEIVED PT IN BED ASLEEP. NO S/SX OF PAIN NOR DISCOMFORT. NO ACUTE RESPIRATORY DISTRESS, TRACH TO VENT WITH SETTING ORDERED. G-TUBE IN PLACE, CLAMPED AT THIS TIME. IVF INFUSING WELL ORDERED. SKIN WARM AND DRY TO TOUCH. ON BED REST, MEADOWS CATHETER DRAINING YELLOW URINE BY GRAVITY, CALL LIGHT IN REACH.
[2023-01-03 20:00] VITALS: BP 134/72
[2023-01-04] VITALS (9 sets, daily range): BP systolic 112–149; BP diastolic 71–85
[2023-01-04] MEDS: HYDRAGUARD CREAM TP SCH ×2 (00:29→12:23)
[2023-01-04] MEDS: Z-GUARD PASTE TP SCH ×2 (00:30→12:23)
[2023-01-04] MEDS: DEXT 5% /NACL 0.9% 1,000 ML IV SCH ×3 (01:36→19:07)
[2023-01-04] MEDS: PIPERACILLIN/TAZOBACTAM 3.375 GM in DEXTROSE 5% 50 ML IV SCH ×3 (05:27→17:39)
[2023-01-04] MEDS: LEVOTHYROXINE 0.05 MG TAB PO SCH (06:08)
[2023-01-04 06:12] LABS: BASOPHILS # (AUTO) 0.1 K/uL (0.00-0.22); BASOPHILS % (AUTO) 1.4 % (0.0-2.0); EOSINOPHILS # (AUTO) 0.5 K/uL (0-0.4); EOSINOPHILS % (AUTO) 12.6 % (0.0-4.0); HEMATOCRIT 32.6 % (36-52); HEMOGLOBIN 11.1 g/dL (12.0-18.0); LYMPHOCYTES # (AUTO) 0.6 K/uL (2.0-11.5); LYMPHOCYTES % (AUTO) 14.2 % (20.5-51.1); MEAN CORPUSCULAR HEMOGLOBIN 31 pg (27-31); MEAN CORPUSCULAR HGB CONC 34 g/dL (33-37); MEAN CORPUSCULAR VOLUME 90.6 fL (80-94); MONOCYTES # (AUTO) 0.4 K/uL (0.8-1.0); MONOCYTES % (AUTO) 9.8 % (1.7-9.3); NEUTROPHILS # (AUTO) 2.7 K/uL (1.8-7.7); PLATELET COUNT (AUTO) 125 K/uL (140-450); RED CELL DISTRIBUTION WIDTH 14.9 % (11.6-13.7); WHITE BLOOD COUNT (AUTO) 4.3 K/uL (4.8-10.8)
--- NOTE | 2023-01-04 06:20 | NUR ---
PATIENT IS ASLEEP. NO ACUTE RESPIRATORY DISTRESS. ALL NEEDS ATTENDED TO. SAFETY PRECAUTIONS IN PLACE, CALL LIGHT IN REACH.
[2023-01-04 06:21] LABS: ANION GAP 10.5 (8-16); CARBON DIOXIDE 28.7 mmol/L (21-32); CREATININE 0.9 mg/dL (0.6-1.3); POTASSIUM 3.2 mmol/L (3.5-5.1)
--- NOTE | 2023-01-04 08:32 | NUR ---
RECEIVED ON A [employer] VENTILATOR PLUGGED INTO RED OUTLET TOLERTING WELL WITHOUT ADVERSE REACTIONS NOTED TO A PORTEX DCT #8 AIRWAY SECURED WITH A MARY TRACH TIE CUFF PRESSURE CHECKED NOTED AMBU BAG AT BEDSIDE RESTING COMFORTABLY EQUAL CHEST RISE DEEP TRACHEAL SUCTION FOR MODERATE THIN YELLOW SECRETIONS ORORPHARYNGEAL SUCTION FOR COPIOUS THICK YELLOW SECRETIONS AIRWAY PATENT
[2023-01-04] MEDS: PANTOPRAZOLE 40 MG TABEC PO SCH (08:43)
[2023-01-04] MEDS: POTASSIUM CHLORIDE 10 MEQ TABER PO PRN (09:30)
--- NOTE | 2023-01-04 10:15 | NUR ---
STABLE GOOD CHEST RISE DEEP TRCAHEAL SUCTION FOR SMALL THIN YELLOW SECRETINS OROPHARYNGEAL SUCTION FOR SMALL THIN YELLOW SECRETIONS OROPHARYGEAL SUCTION FOR MODERATE THICK YELLOW SECRETINS AIRWAY PATENT
[2023-01-04] MEDS: GAUZE TP SCH (12:22)
[2023-01-04] MEDS: THERAHONEY GEL 42.5 GM TP SCH (12:23)
--- NOTE | 2023-01-04 13:14 | NUR ---
RESTING WELL GOOD CHEST RISE DEEP TRAC HEAL SUCTION FOR LARGE SEMI THICK YELLOW SECRETIONS AIRWAY PATENT
--- NOTE | 2023-01-04 17:25 | NUR ---
RN AND SALES PRODUCER AT BEDSIDE FOR PATIENT PHYSICAL HYGIENE AND REPOSITION NO DISTRES OTED TRAUMA THERAPIST TO ATTEMPT PATIENT AND VENTILATOR ASSESSMENT AT A LATER TIME
--- NOTE | 2023-01-04 19:30 | NUR ---
RECEIVED PT IN BED ASLEEP. NO S/SX OF PAIN NOR DISCOMFORT. TRACH TO VENT WITH SETTING ORDERED. SKIN WARM AND DRY TO TOUCH. G-TUBE IN PLACE, PLACEMENT VERIFIED VIA AUSCULTATION. BED IN THE LOWEST AND LOCKED POSITION FOR SAFETY, CALL LIGHT IN REACH.
[2023-01-05] VITALS (10 sets, daily range): BP systolic 121–156; BP diastolic 73–106
[2023-01-05] MEDS: HYDRAGUARD CREAM TP SCH ×2 (00:02→13:00)
[2023-01-05] MEDS: PIPERACILLIN/TAZOBACTAM 3.375 GM in DEXTROSE 5% 50 ML IV SCH ×5 (00:02→23:22)
[2023-01-05] MEDS: Z-GUARD PASTE TP SCH ×2 (00:03→13:00)
[2023-01-05] MEDS: DEXT 5% /NACL 0.9% 1,000 ML IV SCH ×4 (02:42→23:14)
[2023-01-05] MEDS: LEVOTHYROXINE 0.05 MG TAB PO SCH (05:36)
[2023-01-05 06:25] LABS: BASOPHILS # (AUTO) 0.1 K/uL (0.00-0.22); BASOPHILS % (AUTO) 1.5 % (0.0-2.0); EOSINOPHILS # (AUTO) 0.4 K/uL (0-0.4); EOSINOPHILS % (AUTO) 12.7 % (0.0-4.0); HEMATOCRIT 31.3 % (36-52); HEMOGLOBIN 10.7 g/dL (12.0-18.0); LYMPHOCYTES # (AUTO) 0.8 K/uL (2.0-11.5); LYMPHOCYTES % (AUTO) 24.4 % (20.5-51.1); MEAN CORPUSCULAR HEMOGLOBIN 31 pg (27-31); MEAN CORPUSCULAR HGB CONC 34 g/dL (33-37); MEAN CORPUSCULAR VOLUME 90.1 fL (80-94); MONOCYTES # (AUTO) 0.3 K/uL (0.8-1.0); MONOCYTES % (AUTO) 9.7 % (1.7-9.3); NEUTROPHILS # (AUTO) 1.8 K/uL (1.8-7.7); NEUTROPHILS % (AUTO) 51.7 % (42.2-75.2); PLATELET COUNT (AUTO) 118 K/uL (140-450); RED BLOOD CELL COUNT(AUTO) 3.48 MIL/uL (4.20-6.10); RED CELL DISTRIBUTION WIDTH 15.3 % (11.6-13.7); WHITE BLOOD COUNT (AUTO) 3.4 K/uL (4.8-10.8)
[2023-01-05 06:28] LABS: CARBON DIOXIDE 28.2 mmol/L (21-32); CREATININE 0.9 mg/dL (0.6-1.3); POTASSIUM 3.2 mmol/L (3.5-5.1)
--- NOTE | 2023-01-05 06:36 | NUR ---
PATIENT IS ASLEEP. ALL NEEDS ATTENDED TO. NO DISTRESS NOTED. SAFETY PRECAUTIONS MAINTAINED DURING THE SHIFT, CALL LIGHT REMAINS WITHIN REACH.
[2023-01-05] MEDS: PANTOPRAZOLE 40 MG TABEC PO SCH (10:32)
[2023-01-05] MEDS ORDERED: POTASSIUM CHLORIDE 20% 40 MEQ/15 ML UDC ONE (10:37)
[2023-01-05] MEDS: POTASSIUM CHLORIDE 10 MEQ TABER PO PRN (10:39)
--- NOTE | 2023-01-05 10:40 | NUR ---
PATIENT PRESENTING WITH UNCONTROLLED VTe VTsp RR DUE TO THE INCREASE IN SPUTUM PRODUCTION CHANGED MODE TO PRVC; VT TO 500ml (APPROX 7ml/kg ARDS PROTOCOL) CABLE ASSEMBLER AND SWAGER TO MONITOR; GOOD CHEST RISE DEEP TRACHEAL SUCTION FOR COPIOUS THICK BLOOD (OLD) TINGE SECRETIONS AIRWAY PATENT
--- NOTE | 2023-01-05 10:40 | NUR ---
CECILIA/RN NOTIFIED OF VENTILATOR CHANGES
[2023-01-05] MEDS: GAUZE TP SCH (13:00)
[2023-01-05] MEDS: THERAHONEY GEL 42.5 GM TP SCH (13:00)
--- NOTE | 2023-01-05 14:25 | NUR ---
RESTING WELL GOOD CHEST RISE DEEP TRACHEAL SUCTION FOR LARGE THICK YELLOW WITH BLOOD TINGE SECRETIONS AIRWAY PATENT
--- NOTE | 2023-01-05 15:50 | NUR ---
NO DISTRESS NOTED GOOD CHEST RISE DEEP TRACHEAL SUCTION FOR MODERATE THICK YELLOW WITH BLOOD STREAKED SECRETIONS AIRWAY PATENT
--- NOTE | 2023-01-05 19:34 | NUR ---
ENDORSE PATIENT IN STABLE CONDITION TO PM SHIFT WHILE QUADRIPLEGIA PATIENT REST IN BED, TRACH ON VENT SETTING A/C PRVC, FIO2 28, RATE 12, PEEP 5; PATIENT COME FROM [facility] FOR ABDOMINAL PAIN/DISTENSION WHICH DIAGNOSIS WITH UTI, MESENTERITIS. PATIENT CURRENT NPO EXCEPT MED D/T DYSPHAGIA W/ PEG-TUBE. PIV AT R. WRIST 20 INFUSING D5NS @145ML/HR. 16 FR MEADOWS PRESENT
--- NOTE | 2023-01-05 20:10 | NUR ---
PATIENT IS AWAKE WITH EYES OPEN, TRACH TO VENT NON VERBAL. G-TUBE ON THE MID ABDOMEN NO FEEDING. MEADOWS CATHETER DRAINING YELLOW URINE. IV ACCESS IN THE RIGHT WRIST 20 GAUGE INFUSING D5NS 145 ML/HR. ALL SAFETY PRECAUTIONS ARE IN PLACE. CALL LIGHT WITHIN REACH.
[2023-01-06] VITALS (9 sets, daily range): BP systolic 96–164; BP diastolic 73–88
[2023-01-06] MEDS: Z-GUARD PASTE TP SCH ×2 (01:00→13:20)
[2023-01-06] MEDS: HYDRAGUARD CREAM TP SCH ×2 (01:00→13:20)
[2023-01-06 05:22] LABS: BASOPHILS % (AUTO) 1.2 % (0.0-2.0); EOSINOPHILS # (AUTO) 0.4 K/uL (0-0.4); HEMATOCRIT 31.4 % (36-52); HEMOGLOBIN 10.8 g/dL (12.0-18.0); LYMPHOCYTES # (AUTO) 0.8 K/uL (2.0-11.5); LYMPHOCYTES % (AUTO) 24.3 % (20.5-51.1); MEAN CORPUSCULAR HEMOGLOBIN 31 pg (27-31); MEAN CORPUSCULAR HGB CONC 34 g/dL (33-37); MONOCYTES # (AUTO) 0.4 K/uL (0.8-1.0); MONOCYTES % (AUTO) 10.6 % (1.7-9.3); NEUTROPHILS # (AUTO) 1.8 K/uL (1.8-7.7); NEUTROPHILS % (AUTO) 51.9 % (42.2-75.2); PLATELET COUNT (AUTO) 109 K/uL (140-450); RED BLOOD CELL COUNT(AUTO) 3.45 MIL/uL (4.20-6.10); RED CELL DISTRIBUTION WIDTH 15.1 % (11.6-13.7); WHITE BLOOD COUNT (AUTO) 3.5 K/uL (4.8-10.8)
[2023-01-06] MEDS: PIPERACILLIN/TAZOBACTAM 3.375 GM in DEXTROSE 5% 50 ML IV SCH ×3 (05:26→18:04)
--- NOTE | 2023-01-06 05:26 | NUR ---
ZOSYN ADMINISTERED ORDERED.
[2023-01-06] MEDS: LEVOTHYROXINE 0.05 MG TAB PO SCH (05:53)
[2023-01-06] MEDS: DEXT 5% /NACL 0.9% 1,000 ML IV SCH ×3 (06:08→19:56)
[2023-01-06 06:25] LABS: ANION GAP 11.2 (8-16); CARBON DIOXIDE 24.9 mmol/L (21-32); CREATININE 0.8 mg/dL (0.6-1.3); POTASSIUM 3.1 mmol/L (3.5-5.1)
--- NOTE | 2023-01-06 07:31 | NUR ---
GAVE REPORT TO AM NURSE BROOKS FOR CONTINUITY OF CARE.
[2023-01-06] MEDS ORDERED: POTASSIUM CHLORIDE 20% 40 MEQ/15 ML UDC ONE (08:23)
[2023-01-06] MEDS: PANTOPRAZOLE 40 MG TABEC PO SCH (08:27)
[2023-01-06] MEDS ORDERED: SULF-58 PO (10:51)
[2023-01-06] MEDS: THERAHONEY GEL 42.5 GM TP SCH (13:20)
[2023-01-06] MEDS: GAUZE TP SCH (13:20)
--- NOTE | 2023-01-06 15:34 | NUR ---
RECEIVE CONFIRMATION HAT PATIENT IS GOING TO DISCHARGE TO [facility] ([phone]) ROOM 22A TODAY , AND [facility] ([phone]) AUTH #[id number] WILL PLASTIC TOP ASSEMBLER PATIENT BETWEEN 1800 TO 1999.
--- NOTE | 2023-01-06 16:15 | NUR ---
01/06/23 RD FOLLOW UP COMPLETED PLEASE REFER TO NUTRITION ASSESSMENT UNDER CARE ACTIVITY FOR ESTIMATED NUTRITIONAL NEEDS. 1. WHEN/IF MEDICALLY APPROPRIATE TO START TF, RECOMMEND GLUCERNA 1.2 WITH A GOAL RATE OF 70ML/HR WITH FAWN BID PER RX PROTOCOL -FWF: 250ML Q6H OR PER MD -START AT 20ML/HR AND INCREASE BY 10ML Q4H TOLERATED -WITH FAWN BID, PT WILL RECEIVE 2176KCAL, 106G PROTEIN, AND 2352ML FREE WATER, MEETING 93% ESTIMATED KCAL AND 100% ESTIMATED PROTEIN NEEDS; ADEQUATE 2. MONITOR NPO STATUS, NUTRITION-RELATED LAB VALUES AND GI SYMPTOMS 3. RD TO FOLLOW-UP 2-3 DAYS, HIGH RISK REVIEWED BY RHETT HOUSTON RD
--- NOTE | 2023-01-06 19:12 | NUR ---
ENDORSE PATIENT TO PM SHIFT NURSE THAT PATIENT IS GOING TO [facility] ([phone]) ROOM 22A, REPORT GIVE TO [place] AND PRIOR ETA WAS SETUP WITH [employer] WH[facility] ARRIVE AROUND 1800 BUT NO EQUIPMENT FOR VENT PATIENT. NEW ETA SET AT 2200 BY [facility]. PM SHIFT NURSE INFORMED.
--- NOTE | 2023-01-06 20:06 | NUR ---
PATIENT AWAKE NON VERBAL TRACH TO VENT. NO DISTRESS NOTED. IVF D5 NS 145 ML/HR INFUSING WELL. FLACC 0. G-TUBE TO MID ABDOMEN. MEADOWS CATHETER DRAINING CLEAR YELLOW URINE. SAFETY PRECAUTIONS ARE IN PLACE. CALL LIGHT IN REACH.
--- NOTE | 2023-01-07 00:45 | NUR ---
PATIENT DISCHARGED TO [facility] PICKED UP BY [facility] STAFF IN STABLE CONDITION.
== END 2023-01-07 00:45 | DRG 720 ==
LOC: MED 14:29 → MTU 17:31 → OBSVTOIN 17:31 → MTU 17:34
PROVIDERS: ADMIT Family Medicine; ATTEND Family Medicine
PROC: 5A1955Z Respiratory Ventilation, Greater than 96 Consecutive Hours (ICD-10-PCS; principal; 2023-01-02)
DX: A41.9 Sepsis, unspecified organism (principal); G82.50 Quadriplegia, unspecified; E87.0 Hyperosmolality and hypernatremia; J96.10 Chronic respiratory failure, unspecified whether with hypoxia or hypercapnia; K56.7 Ileus, unspecified; R16.2 Hepatomegaly with splenomegaly, not elsewhere classified; Z93.0 Tracheostomy status; N39.0 Urinary tract infection, site not specified; N20.0 Calculus of kidney; Z20.822 Contact with and (suspected) exposure to COVID-19; R13.10 Dysphagia, unspecified; E78.2 Mixed hyperlipidemia; E03.9 Hypothyroidism, unspecified; K40.20 Bilateral inguinal hernia, without obstruction or gangrene, not specified as recurrent; Z86.73 Personal history of transient ischemic attack (TIA), and cerebral infarction without residual deficits; Z93.1 Gastrostomy status
CPT/HCPCS: 36415; 71045; 80048; 80053; 81001; 82150; 83036; 83605; 83690; 83735; 83880; 84100; 84436; 84439; 84443; 84479; 84484; 85025; 85610; 85730; 87040; 87070; 87081; 87086; 94002; 94003; 96365; 99285; J0696; J2543; J7060; Q0092

== ENCOUNTER 2023-08-10 12:30 | Inpatient (IN) | payer OTHER ==
[2023-08-10] VITALS (7 sets, daily range): BP systolic 100–128; BP diastolic 57–92; PULSE 93–135; RESP 18–25; TEMP 97.5–101.1; O2SAT 96–99
[~2023-08-10] VITALS: Ht 175.3 cm; Wt 99.8 kg
[~2023-08-10 12:30] MED LIST changes: -FERR220E24 PO; +SULF-58 PO; +[UNRECOGNIZED DRUG - CODE] PO
[2023-08-10] MEDS ORDERED: LIDOCAINE OINTMENT 5% 35 GM TUBE TP ONE (12:40)
[2023-08-10] MEDS ORDERED: LIDOCAINE 2% 100 MG/5 ML UJET TP ONE ×2 (13:09→13:10)
[2023-08-10 14:32] LABS: BASOPHILS % (AUTO) 0.3 % (0.0-2.0); EOSINOPHILS # (AUTO) 0.4 K/uL (0-0.4); HEMATOCRIT 33.8 % (36-52); HEMOGLOBIN 11.2 g/dL (12.0-18.0); LYMPHOCYTES # (AUTO) 0.6 K/uL (2.0-11.5); LYMPHOCYTES % (AUTO) 11.5 % (20.5-51.1); MEAN CORPUSCULAR HEMOGLOBIN 29 pg (27-31); MEAN CORPUSCULAR HGB CONC 33 g/dL (33-37); MEAN CORPUSCULAR VOLUME 87.4 fL (80-94); MONOCYTES # (AUTO) 0.3 K/uL (0.8-1.0); NEUTROPHILS # (AUTO) 3.9 K/uL (1.8-7.7); NEUTROPHILS % (AUTO) 76.2 % (42.2-75.2); PLATELET COUNT (AUTO) 175 K/uL (140-450); RED BLOOD CELL COUNT(AUTO) 3.87 MIL/uL (4.20-6.10); RED CELL DISTRIBUTION WIDTH 15.4 % (11.6-13.7); WHITE BLOOD COUNT (AUTO) 5.2 K/uL (4.8-10.8)
[2023-08-10 14:46] LABS: INR 1.11 (0.8-1.2); PARTIAL THROMBOPLASTIN TIME 28.1 secs (22-35.6); PROTHROMBIN TIME 11.5 secs (10.8-13.4)
[2023-08-10 14:49] LABS: ANION GAP 8.6 (8-16); CALCIUM 9.8 mg/dL (8.5-10.1); CARBON DIOXIDE 34.1 mmol/L (21-32); CREATININE 1.2 mg/dL (0.6-1.3); POTASSIUM 3.7 mmol/L (3.5-5.1); TOTAL BILIRUBIN 0.4 mg/dL (0.0-1.0); TOTAL PROTEIN, SERUM 7.9 g/dL (6.4-8.2)
[2023-08-10] MEDS ORDERED: MORPHINE SULFATE 2 MG/ML SYR IVP PRN (15:50)
[2023-08-10] MEDS ORDERED: ACETAMINOPHEN 325 MG TAB PO PRN (15:50)
[2023-08-10] MEDS ORDERED: HYDROcodone/APAP 5/325 MG 1 TAB TAB PO PRN (15:50)
[2023-08-10] MEDS ORDERED: IBUPROFEN 400 MG TAB GT ONE (20:30)
[2023-08-11 04:00] VITALS: BP 94/59; PULSE 103; RESP 26; TEMP 98.4; O2SAT 96
[2023-08-11 05:43] LABS: BASOPHILS # (AUTO) 0.1 K/uL (0.00-0.22); BASOPHILS % (AUTO) 0.7 % (0.0-2.0); EOSINOPHILS # (AUTO) 0.1 K/uL (0-0.4); EOSINOPHILS % (AUTO) 0.6 % (0.0-4.0); HEMATOCRIT 31.9 % (36-52); HEMOGLOBIN 10.5 g/dL (12.0-18.0); LYMPHOCYTES # (AUTO) 1.3 K/uL (2.0-11.5); LYMPHOCYTES % (AUTO) 11.7 % (20.5-51.1); MEAN CORPUSCULAR HEMOGLOBIN 29 pg (27-31); MEAN CORPUSCULAR HGB CONC 33 g/dL (33-37); MEAN CORPUSCULAR VOLUME 88.1 fL (80-94); MONOCYTES # (AUTO) 1.6 K/uL (0.8-1.0); MONOCYTES % (AUTO) 14.1 % (1.7-9.3); NEUTROPHILS # (AUTO) 8.3 K/uL (1.8-7.7); NEUTROPHILS % (AUTO) 72.9 % (42.2-75.2); PLATELET COUNT (AUTO) 185 K/uL (140-450); RED BLOOD CELL COUNT(AUTO) 3.62 MIL/uL (4.20-6.10); RED CELL DISTRIBUTION WIDTH 15.2 % (11.6-13.7); WHITE BLOOD COUNT (AUTO) 11.5 K/uL (4.8-10.8)
[2023-08-11 06:03] LABS: ALBUMIN 2.9 g/dL (3.4-5.0); ANION GAP 12.3 (8-16); CALCIUM 9.6 mg/dL (8.5-10.1); CARBON DIOXIDE 31.6 mmol/L (21-32); CREATININE 1.6 mg/dL (0.6-1.3); POTASSIUM 3.9 mmol/L (3.5-5.1); TOTAL BILIRUBIN 0.8 mg/dL (0.0-1.0); TOTAL PROTEIN, SERUM 7.7 g/dL (6.4-8.2)
[2023-08-11 08:00] VITALS: PULSE 68; RESP 20; O2SAT 97
[2023-08-11] MEDS: NACL 0.9% 1,000 ML IV SCH ×2 (08:30→20:40)
[2023-08-11] MEDS: TAMSULOSIN 0.4 MG CAP PO SCH (10:09)
[2023-08-11] MEDS: ALGINATE ROPE MC SCH (15:00)
[2023-08-11 16:00] VITALS: BP 91/58; PULSE 103; RESP 19; TEMP 97.3; O2SAT 94
[2023-08-11 16:26] VITALS: O2SAT 97
[2023-08-11] MEDS: THERAHONEY GEL 42.5 GM TP SCH (16:26)
[2023-08-11] MEDS: HYDRAGUARD CREAM TP SCH (16:26)
[2023-08-11 19:49] VITALS: O2SAT 96
[2023-08-11 20:00] VITALS: PULSE 110; RESP 18; O2SAT 96
[2023-08-11] MEDS ORDERED: cefTRIAXone 1,000 MG VIAL ONE (22:35)
[2023-08-12] VITALS: BP 96/61; PULSE 110; RESP 18; TEMP 99.3; O2SAT 96
[2023-08-12] MEDS: HYDRAGUARD CREAM TP SCH ×2 (01:07→14:05)
[2023-08-12 03:49] LABS: APPEARANCE,URINE CLOUDY (CLEAR); BILIRUBIN,URINE 2+ (NEGATIVE); BLOOD, URINE 3+ (NEGATIVE); COLOR,URINE RED (YELLOW); LEUKOCYTE ESTERASE ,URINE 3+ (NEGATIVE); NITRITE, URINE POSITIVE (NEGATIVE); PROTEIN,URINE 3+ (NEGATIVE); UGLUCOSE TRACE (NEGATIVE)
[2023-08-12 04:09] LABS: ICTOTEST POSITIVE (NEGATIVE)
[2023-08-12 04:10] LABS: BACTERIA,URINE >30 (MANY) /HPF (None Seen); MUCUS,URINE 1+ /LPF (None Seen); RBC,URINE TOO NUMEROUS TO COUN /HPF (0-5); SQUAMOUS EPITHELIAL CELL,UR 0-3 (FEW) /LPF (0-3 (FEW))
[2023-08-12 05:28] LABS: BASOPHILS % (AUTO) 0.8 % (0.0-2.0); EOSINOPHILS # (AUTO) 0.1 K/uL (0-0.4); HEMOGLOBIN 9.7 g/dL (12.0-18.0); LYMPHOCYTES # (AUTO) 0.7 K/uL (2.0-11.5); LYMPHOCYTES % (AUTO) 14.1 % (20.5-51.1); MEAN CORPUSCULAR HEMOGLOBIN 30 pg (27-31); MEAN CORPUSCULAR HGB CONC 33 g/dL (33-37); MONOCYTES # (AUTO) 0.8 K/uL (0.8-1.0); MONOCYTES % (AUTO) 15.2 % (1.7-9.3); NEUTROPHILS # (AUTO) 3.5 K/uL (1.8-7.7); NEUTROPHILS % (AUTO) 67.9 % (42.2-75.2); PLATELET COUNT (AUTO) 161 K/uL (140-450); RED BLOOD CELL COUNT(AUTO) 3.26 MIL/uL (4.20-6.10); RED CELL DISTRIBUTION WIDTH 15.4 % (11.6-13.7); WHITE BLOOD COUNT (AUTO) 5.1 K/uL (4.8-10.8)
[2023-08-12 07:32] LABS: ANION GAP 14.3 (8-16); CALCIUM 9.3 mg/dL (8.5-10.1); CARBON DIOXIDE 28.2 mmol/L (21-32); CREATININE 1.3 mg/dL (0.6-1.3); POTASSIUM 3.5 mmol/L (3.5-5.1)
[2023-08-12 08:00] VITALS: BP 96/67; PULSE 109; RESP 18; RESP 20; TEMP 98.1; O2SAT 96
[2023-08-12] MEDS: NACL 0.45% 1,000 ML IV SCH (08:29)
[2023-08-12] MEDS: levETIRAcetam 500 MG TAB PEG SCH ×2 (08:48→21:25)
[2023-08-12] MEDS: TAMSULOSIN 0.4 MG CAP PO SCH (08:48)
[2023-08-12] MEDS: BACLOFEN 10 MG TAB PO SCH ×3 (08:48→17:57)
[2023-08-12] MEDS: THERAHONEY GEL 42.5 GM TP SCH (14:06)
[2023-08-12 16:00] VITALS: BP 133/72; PULSE 105; RESP 20; TEMP 99.1; O2SAT 97
[2023-08-12 16:55] VITALS: O2SAT 96
[2023-08-12 20:00] VITALS: BP 94/58; PULSE 104; RESP 14; TEMP 99.2; O2SAT 96
[2023-08-13] VITALS (8 sets, daily range): BP systolic 106–122; BP diastolic 60–69; PULSE 84–99; RESP 15–18; TEMP 98.1–98.6; O2SAT 93–99
[2023-08-13] MEDS: NACL 0.45% 1,000 ML IV SCH ×2 (00:55→03:52)
[2023-08-13] MEDS: HYDRAGUARD CREAM TP SCH ×2 (01:54→13:36)
[2023-08-13 06:02] LABS: ANION GAP 11.1 (8-16); CALCIUM 9.1 mg/dL (8.5-10.1); CARBON DIOXIDE 29.3 mmol/L (21-32); CREATININE 1.2 mg/dL (0.6-1.3); POTASSIUM 3.4 mmol/L (3.5-5.1)
[2023-08-13 06:06] LABS: BASOPHILS # (AUTO) 0.1 K/uL (0.00-0.22); BASOPHILS % (AUTO) 1.5 % (0.0-2.0); EOSINOPHILS # (AUTO) 0.1 K/uL (0-0.4); EOSINOPHILS % (AUTO) 2.6 % (0.0-4.0); HEMATOCRIT 28.7 % (36-52); HEMOGLOBIN 9.5 g/dL (12.0-18.0); LYMPHOCYTES # (AUTO) 0.7 K/uL (2.0-11.5); LYMPHOCYTES % (AUTO) 14.3 % (20.5-51.1); MEAN CORPUSCULAR HEMOGLOBIN 29 pg (27-31); MEAN CORPUSCULAR HGB CONC 33 g/dL (33-37); MONOCYTES # (AUTO) 0.6 K/uL (0.8-1.0); MONOCYTES % (AUTO) 13.4 % (1.7-9.3); NEUTROPHILS # (AUTO) 3.2 K/uL (1.8-7.7); NEUTROPHILS % (AUTO) 68.2 % (42.2-75.2); PLATELET COUNT (AUTO) 168 K/uL (140-450); RED BLOOD CELL COUNT(AUTO) 3.23 MIL/uL (4.20-6.10); RED CELL DISTRIBUTION WIDTH 15.1 % (11.6-13.7); WHITE BLOOD COUNT (AUTO) 4.7 K/uL (4.8-10.8)
[2023-08-13] MEDS ORDERED: DEXTROSE 50% 50 ML SYR IVP PRN (08:35)
[2023-08-13] MEDS: TAMSULOSIN 0.4 MG CAP PO SCH (09:54)
[2023-08-13] MEDS: BACLOFEN 10 MG TAB PO SCH ×3 (09:55→18:31)
[2023-08-13] MEDS: levETIRAcetam 100 MG/ML ORASYR PEG SCH ×2 (09:55→21:27)
[2023-08-13] MEDS: DEXTROSE 5% 1,000 ML IV SCH (10:27)
[2023-08-13] MEDS: BLOOD GLUCOSE MONITORING 1 DEV DEV FS SCH ×3 (11:30→22:12)
[2023-08-13] MEDS: INSULIN LISPRO SLIDING SCALE 100 UNITS/ML VIAL SUBQ PRN ×2 (13:36→18:27)
[2023-08-13] MEDS: THERAHONEY GEL 42.5 GM TP SCH (13:36)
[2023-08-14] VITALS (8 sets, daily range): BP systolic 103–122; BP diastolic 64–69; PULSE 72–114; RESP 18–20; TEMP 96.9–98.5; O2SAT 93–99
[2023-08-14] MEDS: DEXTROSE 5% 1,000 ML IV SCH ×2 (04:35→12:18)
[2023-08-14 06:25] LABS: BASOPHILS # (AUTO) 0.1 K/uL (0.00-0.22); BASOPHILS % (AUTO) 1.2 % (0.0-2.0); EOSINOPHILS # (AUTO) 0.3 K/uL (0-0.4); EOSINOPHILS % (AUTO) 5.5 % (0.0-4.0); HEMATOCRIT 28.8 % (36-52); HEMOGLOBIN 9.5 g/dL (12.0-18.0); LYMPHOCYTES # (AUTO) 0.9 K/uL (2.0-11.5); LYMPHOCYTES % (AUTO) 18.9 % (20.5-51.1); MEAN CORPUSCULAR HEMOGLOBIN 29 pg (27-31); MEAN CORPUSCULAR HGB CONC 33 g/dL (33-37); MEAN CORPUSCULAR VOLUME 88.7 fL (80-94); MONOCYTES # (AUTO) 0.6 K/uL (0.8-1.0); MONOCYTES % (AUTO) 12.1 % (1.7-9.3); NEUTROPHILS # (AUTO) 3.1 K/uL (1.8-7.7); NEUTROPHILS % (AUTO) 62.3 % (42.2-75.2); PLATELET COUNT (AUTO) 178 K/uL (140-450); RED BLOOD CELL COUNT(AUTO) 3.24 MIL/uL (4.20-6.10)
[2023-08-14 06:32] LABS: ANION GAP 11.8 (8-16); CARBON DIOXIDE 28.6 mmol/L (21-32); CREATININE 1.1 mg/dL (0.6-1.3); POTASSIUM 3.4 mmol/L (3.5-5.1)
[2023-08-14] MEDS: BLOOD GLUCOSE MONITORING 1 DEV DEV FS SCH ×4 (07:06→21:32)
[2023-08-14] MEDS: HYDRAGUARD CREAM TP SCH ×2 (07:07→14:53)
[2023-08-14] MEDS: ALGINATE ROPE MC SCH (09:00)
[2023-08-14] MEDS: TAMSULOSIN 0.4 MG CAP PO SCH (10:19)
[2023-08-14] MEDS: BACLOFEN 10 MG TAB PO SCH ×3 (10:19→17:35)
[2023-08-14] MEDS: levETIRAcetam 100 MG/ML ORASYR PEG SCH ×2 (10:19→21:33)
[2023-08-14] MEDS: THERAHONEY GEL 42.5 GM TP SCH (14:54)
[2023-08-14] MEDS ORDERED: KCL 20 MEQ IN 100 mL PREMIX 100 ML IV SCH (17:00)
[2023-08-14] MEDS ORDERED: LEVOFLOXACIN 750 MG/D5W PREMIX 150 ML IV SCH (17:00)
[2023-08-15 04:04] VITALS: PULSE 94; RESP 20; O2SAT 98
[2023-08-15 05:23] LABS: EOSINOPHILS # (AUTO) 0.3 K/uL (0-0.4); EOSINOPHILS % (AUTO) 7.1 % (0.0-4.0); HEMOGLOBIN 9.3 g/dL (12.0-18.0); LYMPHOCYTES # (AUTO) 0.9 K/uL (2.0-11.5); LYMPHOCYTES % (AUTO) 19.8 % (20.5-51.1); MEAN CORPUSCULAR HEMOGLOBIN 29 pg (27-31); MEAN CORPUSCULAR HGB CONC 33 g/dL (33-37); MEAN CORPUSCULAR VOLUME 87.8 fL (80-94); MONOCYTES # (AUTO) 0.5 K/uL (0.8-1.0); MONOCYTES % (AUTO) 10.9 % (1.7-9.3); NEUTROPHILS # (AUTO) 2.9 K/uL (1.8-7.7); NEUTROPHILS % (AUTO) 61.2 % (42.2-75.2); PLATELET COUNT (AUTO) 161 K/uL (140-450); RED BLOOD CELL COUNT(AUTO) 3.19 MIL/uL (4.20-6.10); WHITE BLOOD COUNT (AUTO) 4.7 K/uL (4.8-10.8)
[2023-08-15 05:48] LABS: ANION GAP 12.3 (8-16); CALCIUM 8.6 mg/dL (8.5-10.1); CARBON DIOXIDE 27.4 mmol/L (21-32); CREATININE 1.1 mg/dL (0.6-1.3); POTASSIUM 3.7 mmol/L (3.5-5.1)
[2023-08-15] MEDS: BLOOD GLUCOSE MONITORING 1 DEV DEV FS SCH ×2 (07:00→12:20)
[2023-08-15] MEDS: HYDRAGUARD CREAM TP SCH (07:14)
[2023-08-15 07:25] VITALS: O2SAT 96
[2023-08-15 08:00] VITALS: BP 92/61; PULSE 88; RESP 18; TEMP 97.8; O2SAT 98
[2023-08-15] MEDS: TAMSULOSIN 0.4 MG CAP PO SCH (08:30)
[2023-08-15] MEDS: levETIRAcetam 100 MG/ML ORASYR PEG SCH (09:54)
[2023-08-15] MEDS: BACLOFEN 10 MG TAB PO SCH (09:55)
[2023-08-15] MEDS ORDERED: LEVO750T75 PO (11:14)
[2023-08-15 13:13] VITALS: BP 92/61; PULSE 88; RESP 18; TEMP 97.8
== END 2023-08-15 13:16 | DRG 720 ==
LOC: MED 12:30 → MTU 15:52
PROVIDERS: ADMIT Student in an Organized Health Care Education/Training Program; ATTEND Student in an Organized Health Care Education/Training Program
PROC: 0T9B70Z Drainage of Bladder with Drainage Device, Via Natural or Artificial Opening (ICD-10-PCS; principal; 2023-08-10)
DX: A41.9 Sepsis, unspecified organism (principal); G82.50 Quadriplegia, unspecified; N17.9 Acute kidney failure, unspecified; J96.10 Chronic respiratory failure, unspecified whether with hypoxia or hypercapnia; T83.83XA Hemorrhage due to genitourinary prosthetic devices, implants and grafts, initial encounter; R13.10 Dysphagia, unspecified; E11.9 Type 2 diabetes mellitus without complications; Y83.8 Other surgical procedures as the cause of abnormal reaction of the patient, or of later complication, without mention of misadventure at the time of the procedure; N39.0 Urinary tract infection, site not specified; I10 Essential (primary) hypertension; N20.0 Calculus of kidney; Z79.01 Long term (current) use of anticoagulants; Z93.0 Tracheostomy status; Z79.899 Other long term (current) drug therapy; Z86.73 Personal history of transient ischemic attack (TIA), and cerebral infarction without residual deficits; Y92.89 Other specified places as the place of occurrence of the external cause
CPT/HCPCS: 36415; 76770; 80048; 80053; 81001; 82948; 83735; 85025; 85610; 85730; 87081; 87086; 94664; 99285; J0696; J1815; J1956; J3480; J7060; Q0092

== ENCOUNTER 2023-11-21 14:56 | Emergency (ER) | payer SELFPAY ==
[~2023-11-21] VITALS: Ht 182.9 cm; Wt 90.7 kg
[~2023-11-21 14:56] MED LIST changes: -ASCO500T95 PO; +LEVO750T75 PO; -LOSA50TA66 GT; -MERO1VIA15 IV; -SULF-58 PO
[2023-11-21 15:01] VITALS: BP 90/55; PULSE 101; RESP 17; TEMP 99.3; O2SAT 99
[2023-11-21 15:04] VITALS: BP 90/55; PULSE 102; O2SAT 99
[2023-11-21 17:33] VITALS: BP 94/60; PULSE 106; O2SAT 99
[2023-11-21 19:01] VITALS: BP 94/60; PULSE 106; RESP 17; TEMP 99.3; O2SAT 99
== END 2023-11-21 19:02 ==
LOC: MED 14:56
DX: K94.23 Gastrostomy malfunction (principal); Z79.899 Other long term (current) drug therapy
CPT/HCPCS: 74240; 99283; Q0092

== ENCOUNTER 2023-11-25 22:17 | Inpatient (IN) | payer SELFPAY ==
[~2023-11-25] VITALS: Ht 177.8 cm; Wt 122.1 kg
[2023-11-25 22:17] VITALS: BP 90/47; PULSE 93; RESP 16; TEMP 99.7; O2SAT 100
[2023-11-25 22:26] VITALS: PULSE 96; RESP 24; O2SAT 96; O2SAT 98
[2023-11-25] MEDS ORDERED: NACL 0.9% 1,000 ML IV ONE (22:35)
[2023-11-25 23:06] LABS: BLOOD GAS BASE EXCESS 9.3 mmol/L (-2.0-2.0); BLOOD GAS HCO3 33.5 mmol/L (22-26); BLOOD GAS PCO2 44.4 mmHg (35-45); BLOOD GAS PH 7.495 (7.35-7.45); BLOOD GAS PO2 39.3 mmHg (75-100)
[2023-11-25 23:07] LABS: BASOPHILS # (AUTO) 0.1 K/uL (0.00-0.22); BASOPHILS % (AUTO) 0.8 % (0.0-2.0); EOSINOPHILS # (AUTO) 0.2 K/uL (0-0.4); EOSINOPHILS % (AUTO) 2.1 % (0.0-4.0); LYMPHOCYTES # (AUTO) 1.1 K/uL (2.0-11.5); LYMPHOCYTES % (AUTO) 11.6 % (20.5-51.1); MEAN CORPUSCULAR HEMOGLOBIN 26 pg (27-31); MEAN CORPUSCULAR HGB CONC 32 g/dL (33-37); MEAN CORPUSCULAR VOLUME 80.5 fL (80-94); MONOCYTES # (AUTO) 1.4 K/uL (0.8-1.0); NEUTROPHILS # (AUTO) 6.4 K/uL (1.8-7.7); NEUTROPHILS % (AUTO) 70.5 % (42.2-75.2); PLATELET COUNT (AUTO) 114 K/uL (140-450); RED BLOOD CELL COUNT(AUTO) 2.17 MIL/uL (4.20-6.10); RED CELL DISTRIBUTION WIDTH 19.1 % (11.6-13.7)
[2023-11-25 23:08] LABS: BLOOD GAS O2 SAT% 76.3 % (92.0-98.5)
[2023-11-25 23:16] LABS: APPEARANCE,URINE CLEAR (CLEAR); BILIRUBIN,URINE NEGATIVE (NEGATIVE); BLOOD, URINE 2+ (NEGATIVE); COLOR,URINE YELLOW (YELLOW); LEUKOCYTE ESTERASE ,URINE 3+ (NEGATIVE); NITRITE, URINE NEGATIVE (NEGATIVE); PROTEIN,URINE TRACE (NEGATIVE); UGLUCOSE NEGATIVE (NEGATIVE); UROBILINOGEN,URINE 0.2 EU/dL (0.2 - 1)
[2023-11-25 23:48] LABS: ANION GAP 4.5 (8-16); CARBON DIOXIDE 39.5 mmol/L (21-32)
[2023-11-25 23:51] LABS: CALCIUM 12.4 mg/dL (8.5-10.1); CREATININE 1.7 mg/dL (0.6-1.3)
[2023-11-25 23:52] LABS: TOTAL BILIRUBIN 0.2 mg/dL (0.0-1.0)
[2023-11-25 23:53] LABS: ALANINE AMINOTRANSFERASE 9 U/L (12-78); ALBUMIN 1.9 g/dL (3.4-5.0); ALKALINE PHOSPHATASE 112 U/L (50-136); ASPARTATE AMINOTRANSFERASE 45 U/L (15-37); BILIRUBIN,DIRECT 0.1 mg/dL (0.0-0.3); CREATINE KINASE, TOTAL 18 U/L (39-308); TOTAL PROTEIN, SERUM 7.3 g/dL (6.4-8.2)
[2023-11-25 23:54] LABS: LACTIC ACID 4.2 mmol/L (0.4-2.0)
[2023-11-25 23:55] LABS: HEMATOCRIT 17.5 % (36-52); HEMOGLOBIN 5.7 g/dL (12.0-18.0)
[2023-11-26] VITALS (26 sets, daily range): BP systolic 75–117; BP diastolic 27–64; PULSE 80–109; RESP 18–29; TEMP 99.4–99.9; O2SAT 95–100
[2023-11-26] MEDS ORDERED: DOCUSATE SODIUM 100 MG GELCAP PO PRN (00:10)
[2023-11-26] MEDS: PIPERACILLIN/TAZOBACTAM 2.25 GM in DEXTROSE 5% 50 ML IV ONE ×2 (00:10→01:08)
[2023-11-26] MEDS ORDERED: VANCOMYCIN 1,000 MG in DEXTROSE 5% 250 ML IV ONE (00:10)
[2023-11-26] MEDS ORDERED: VANCOMYCIN PER PHARMACY MC SCH (00:10)
[2023-11-26] MEDS ORDERED: guaiFENesin DM 200/20 MG-10 ML 10 ML UDC PO PRN (00:10)
[2023-11-26] MEDS ORDERED: ALBUTEROL SULFATE/IPRATROPIU 3 ML SOL IH PRN (00:10)
[2023-11-26] MEDS: NACL 0.9% 1,000 ML IV SCH ×2 (00:10→18:45)
[2023-11-26] MEDS ORDERED: ZOLPIDEM 5 MG TAB PO PRN (00:10)
[2023-11-26] MEDS ORDERED: ONDANSETRON 4 MG/2 ML VIAL IM/IVP PRN (00:10)
[2023-11-26] MEDS ORDERED: HYDROcodone/APAP 7.5/325 MG 1 TAB PO PRN (00:10)
[2023-11-26] MEDS ORDERED: NACL 0.9% 1,000 ML IV ONE ×2 (00:10→06:05)
[2023-11-26] MEDS ORDERED: POTASSIUM CHLORIDE 10 MEQ TABER PO PRN (00:10)
[2023-11-26 00:17] LABS: BACTERIA,URINE >30 (MANY) /HPF (None Seen); MUCUS,URINE 1+ /LPF (None Seen); SQUAMOUS EPITHELIAL CELL,UR 0-3 (FEW) /LPF (0-3 (FEW)); WBC,URINE TOO MANY TO COUNT /HPF (0-5)
[2023-11-26 00:23] LABS: INR 1.21 (0.8-1.2); PARTIAL THROMBOPLASTIN TIME 27.3 secs (22-35.6); PROTHROMBIN TIME 12.6 secs (10.8-13.4)
[2023-11-26] MEDS ORDERED: PIPERACILLIN/TAZOBACTAM 3.375 GM VIAL IV ONE ×2 (00:36→08:55)
[2023-11-26] MEDS ORDERED: VANCOMYCIN 500 MG VIAL ONE (00:37)
[2023-11-26 01:00] LABS: FLU A ANTIGEN negative (NEGATIVE); FLU B ANTIGEN NEGATIVE (NEGATIVE)
[2023-11-26] MEDS ORDERED: PIPERACILLIN/TAZOBACTAM 2.25 GM VIAL IV ONE (01:14)
[2023-11-26] MEDS ORDERED: PIPERACILLIN/TAZOBACTAM 3.375 GM in DEXTROSE 5% 50 ML IV SCH (05:00)
[2023-11-26] MEDS ORDERED: NACL 0.9% 1,000 ML IV SCH (07:00)
[2023-11-26] MEDS ORDERED: PANTOPRAZOLE 40 MG TABEC PO SCH (09:00)
[2023-11-26] MEDS: PIPERACILLIN/TAZOBACTAM 3.375 GM in DEXTROSE 5% 50 ML IV SCH ×3 (09:07→20:40)
[2023-11-26] MEDS: PANTOPRAZOLE 40 MG INJ VIAL IVP SCH ×2 (09:17→20:40)
[2023-11-26] MEDS ORDERED: CRUSHER, PILL MC ONE (10:16)
[2023-11-26 10:41] LABS: LACTIC ACID 2.7 mmol/L (0.4-2.0)
[2023-11-26] MEDS ORDERED: HYDROcodone/APAP 5/325 MG 1 TAB TAB GT PRN (11:00)
[2023-11-26] MEDS ORDERED: DOCUSATE 100 MG/10 ML UDC PO PRN (11:10)
[2023-11-26] MEDS: ACETAMINOPHEN 325 MG TAB PO PRN (11:10)
[2023-11-26] MEDS ORDERED: DOCUSATE 100 MG/10 ML UDC GT PRN (11:10)
[2023-11-26] MEDS: BLOOD GLUCOSE MONITORING 1 DEV DEV FS SCH ×2 (12:00→16:30)
[2023-11-26] MEDS ORDERED: VANCOMYCIN 750 MG in DEXTROSE 5% 250 ML IV SCH (12:00)
[2023-11-26] MEDS ORDERED: NACL 0.9% 500 ML IV SCH (13:25)
[2023-11-26] MEDS ORDERED: THERAHONEY GEL 42.5 GM TP PRN (14:30)
[2023-11-26] MEDS ORDERED: HYDRAGUARD CREAM TP PRN (14:30)
[2023-11-26] MEDS ORDERED: Z-GUARD PASTE TP PRN (14:30)
[2023-11-26] MEDS ORDERED: ALGINATE ROPE MC PRN (14:30)
[2023-11-26 14:52] LABS: BASOPHILS # (AUTO) 0.1 K/uL (0.00-0.22); BASOPHILS % (AUTO) 0.8 % (0.0-2.0); EOSINOPHILS # (AUTO) 0.1 K/uL (0-0.4); EOSINOPHILS % (AUTO) 0.8 % (0.0-4.0); HEMATOCRIT 20.4 % (36-52); LYMPHOCYTES # (AUTO) 0.7 K/uL (2.0-11.5); LYMPHOCYTES % (AUTO) 6.7 % (20.5-51.1); MEAN CORPUSCULAR HEMOGLOBIN 26 pg (27-31); MEAN CORPUSCULAR HGB CONC 33 g/dL (33-37); MEAN CORPUSCULAR VOLUME 80.6 fL (80-94); MONOCYTES # (AUTO) 1.9 K/uL (0.8-1.0); MONOCYTES % (AUTO) 17.5 % (1.7-9.3); NEUTROPHILS # (AUTO) 7.9 K/uL (1.8-7.7); NEUTROPHILS % (AUTO) 74.2 % (42.2-75.2); PLATELET COUNT (AUTO) 109 K/uL (140-450); RED BLOOD CELL COUNT(AUTO) 2.54 MIL/uL (4.20-6.10); RED CELL DISTRIBUTION WIDTH 19.1 % (11.6-13.7); WHITE BLOOD COUNT (AUTO) 10.7 K/uL (4.8-10.8)
[2023-11-26 14:54] LABS: HEMOGLOBIN 6.6 g/dL (12.0-18.0)
[2023-11-26] MEDS ORDERED: NOREPINEPHRINE 4 MG/4 ML VIAL IV ONE ×2 (15:26→23:52)
[2023-11-26] MEDS: NOREPINEPHRINE 4 MG in DEXTROSE 5% 250 ML IV PRN ×2 (15:49→23:55)
[2023-11-26] MEDS: BACLOFEN 10 MG TAB GT SCH (20:38)
[2023-11-26] MEDS: DOCUSATE 100 MG/10 ML UDC GT SCH (20:40)
[2023-11-27] VITALS (33 sets, daily range): BP systolic 87–118; BP diastolic 46–69; PULSE 72–93; RESP 14–29; TEMP 98.1–98.8; O2SAT 94–99
[2023-11-27] MEDS: HYDRAGUARD CREAM TP SCH ×2 (00:10→13:17)
[2023-11-27] MEDS: GAUZE TP SCH ×2 (00:11→13:18)
[2023-11-27 04:53] LABS: BASOPHILS % (AUTO) 0.5 % (0.0-2.0); EOSINOPHILS # (AUTO) 0.2 K/uL (0-0.4); EOSINOPHILS % (AUTO) 2.4 % (0.0-4.0); HEMATOCRIT 21.6 % (36-52); HEMOGLOBIN 7.2 g/dL (12.0-18.0); LYMPHOCYTES # (AUTO) 0.7 K/uL (2.0-11.5); LYMPHOCYTES % (AUTO) 6.7 % (20.5-51.1); MEAN CORPUSCULAR HEMOGLOBIN 27 pg (27-31); MEAN CORPUSCULAR HGB CONC 34 g/dL (33-37); MEAN CORPUSCULAR VOLUME 80.6 fL (80-94); MONOCYTES # (AUTO) 1.5 K/uL (0.8-1.0); MONOCYTES % (AUTO) 14.8 % (1.7-9.3); NEUTROPHILS # (AUTO) 7.5 K/uL (1.8-7.7); NEUTROPHILS % (AUTO) 75.6 % (42.2-75.2); PLATELET COUNT (AUTO) 124 K/uL (140-450); RED BLOOD CELL COUNT(AUTO) 2.68 MIL/uL (4.20-6.10); RED CELL DISTRIBUTION WIDTH 18.6 % (11.6-13.7); WHITE BLOOD COUNT (AUTO) 9.9 K/uL (4.8-10.8)
[2023-11-27] MEDS: PIPERACILLIN/TAZOBACTAM 3.375 GM in DEXTROSE 5% 50 ML IV SCH ×3 (04:57→20:06)
[2023-11-27 05:48] LABS: ALBUMIN 1.6 g/dL (3.4-5.0); ANION GAP 8.2 (8-16); CALCIUM 10.8 mg/dL (8.5-10.1); CARBON DIOXIDE 33.1 mmol/L (21-32); CREATININE 1.6 mg/dL (0.6-1.3); POTASSIUM 3.3 mmol/L (3.5-5.1); TOTAL BILIRUBIN 0.4 mg/dL (0.0-1.0); TOTAL PROTEIN, SERUM 6.7 g/dL (6.4-8.2)
[2023-11-27] MEDS: BLOOD GLUCOSE MONITORING 1 DEV DEV FS SCH ×4 (06:11→23:54)
[2023-11-27] MEDS: PANTOPRAZOLE 40 MG INJ VIAL IVP SCH ×2 (08:31→20:05)
[2023-11-27] MEDS: ASCORBIC ACID 500 MG TAB GT SCH (08:32)
[2023-11-27] MEDS: MIDODRINE 5 MG TAB GT SCH ×3 (08:32→18:34)
[2023-11-27] MEDS: levETIRAcetam 100 MG/ML ORASYR GT SCH (08:34)
[2023-11-27] MEDS: DOCUSATE 100 MG/10 ML UDC GT SCH ×2 (08:34→20:05)
[2023-11-27] MEDS: BACLOFEN 10 MG TAB GT SCH ×2 (08:35→20:05)
[2023-11-27] MEDS: NOREPINEPHRINE 4 MG in DEXTROSE 5% 250 ML IV PRN ×2 (08:52→21:52)
[2023-11-27] MEDS ORDERED: TAMSULOSIN 0.4 MG CAP GT SCH (09:00)
[2023-11-27] MEDS: LACTULOSE 20 GM/30 ML UDC PEG SCH (09:27)
[2023-11-27] MEDS: POLYETHYLENE GLYCOL 17 GM/PKT GT SCH (09:27)
[2023-11-27] MEDS: SCOPOLAMINE 1.5 MG/72 HR PATCH TD SCH (09:41)
[2023-11-27] MEDS: NACL 0.9% 1,000 ML IV SCH ×2 (09:50→13:52)
[2023-11-27] MEDS ORDERED: VANCOMYCIN 1.25GM PREMIX 250 ML IV SCH (10:00)
[2023-11-27] MEDS: THERAHONEY GEL 42.5 GM TP SCH (13:16)
[2023-11-27] MEDS: ALGINATE ROPE MC SCH (13:17)
[2023-11-27] MEDS: Z-GUARD PASTE TP SCH (13:18)
[2023-11-28] VITALS (31 sets, daily range): BP systolic 91–129; BP diastolic 45–86; PULSE 73–90; RESP 16–28; TEMP 97.5–101.3; O2SAT 92–100
[2023-11-28] MEDS: GAUZE TP SCH ×2 (01:35→13:25)
[2023-11-28] MEDS: HYDRAGUARD CREAM TP SCH ×2 (01:35→13:24)
[2023-11-28] MEDS: PIPERACILLIN/TAZOBACTAM 3.375 GM in DEXTROSE 5% 50 ML IV SCH (04:34)
[2023-11-28 05:39] LABS: BASOPHILS # (AUTO) 0.1 K/uL (0.00-0.22); BASOPHILS % (AUTO) 0.9 % (0.0-2.0); EOSINOPHILS # (AUTO) 0.3 K/uL (0-0.4); HEMATOCRIT 23.2 % (36-52); HEMOGLOBIN 7.6 g/dL (12.0-18.0); LYMPHOCYTES # (AUTO) 0.6 K/uL (2.0-11.5); LYMPHOCYTES % (AUTO) 7.9 % (20.5-51.1); MEAN CORPUSCULAR HEMOGLOBIN 27 pg (27-31); MEAN CORPUSCULAR HGB CONC 33 g/dL (33-37); MONOCYTES # (AUTO) 1.3 K/uL (0.8-1.0); MONOCYTES % (AUTO) 15.8 % (1.7-9.3); NEUTROPHILS # (AUTO) 5.8 K/uL (1.8-7.7); NEUTROPHILS % (AUTO) 71.4 % (42.2-75.2); PLATELET COUNT (AUTO) 138 K/uL (140-450); RED BLOOD CELL COUNT(AUTO) 2.87 MIL/uL (4.20-6.10); WHITE BLOOD COUNT (AUTO) 8.1 K/uL (4.8-10.8)
[2023-11-28 05:56] LABS: ALBUMIN 1.6 g/dL (3.4-5.0); ANION GAP 9.5 (8-16); CALCIUM 10.6 mg/dL (8.5-10.1); CARBON DIOXIDE 31.4 mmol/L (21-32); CREATININE 1.7 mg/dL (0.6-1.3); TOTAL BILIRUBIN 0.5 mg/dL (0.0-1.0); TOTAL PROTEIN, SERUM 6.8 g/dL (6.4-8.2)
[2023-11-28] MEDS: MIDODRINE 5 MG TAB GT SCH ×3 (06:01→19:41)
[2023-11-28] MEDS: BLOOD GLUCOSE MONITORING 1 DEV DEV FS SCH ×3 (06:01→18:07)
[2023-11-28 06:43] LABS: POTASSIUM 2.9 mmol/L (3.5-5.1)
[2023-11-28] MEDS ORDERED: POTASSIUM CHLORIDE 20% 40 MEQ/15 ML UDC GT PRN (06:45)
[2023-11-28] MEDS: BACLOFEN 10 MG TAB GT SCH ×2 (09:40→20:29)
[2023-11-28] MEDS: POLYETHYLENE GLYCOL 17 GM/PKT GT SCH (09:40)
[2023-11-28] MEDS: DOCUSATE 100 MG/10 ML UDC GT SCH ×2 (09:40→21:00)
[2023-11-28] MEDS: levETIRAcetam 100 MG/ML ORASYR GT SCH (09:40)
[2023-11-28] MEDS: PANTOPRAZOLE 40 MG INJ VIAL IVP SCH ×2 (09:41→20:29)
[2023-11-28] MEDS: NOREPINEPHRINE 4 MG in DEXTROSE 5% 250 ML IV PRN ×2 (09:44→21:25)
[2023-11-28] MEDS: LACTULOSE 20 GM/30 ML UDC PEG SCH (09:47)
[2023-11-28] MEDS: ASCORBIC ACID 500 MG TAB GT SCH (09:47)
[2023-11-28] MEDS ORDERED: VANCOMYCIN 750 MG in DEXTROSE 5% 250 ML IV SCH (11:00)
[2023-11-28 11:08] LABS: PARATHYROID CALCIUM 11.2 mg/d/L (8.7-10.2)
[2023-11-28] MEDS: CIPROFLOXACIN 250 MG TAB GT SCH ×2 (13:21→20:28)
[2023-11-28] MEDS: Z-GUARD PASTE TP SCH (13:23)
[2023-11-28] MEDS: NACL 0.9% 1,000 ML IV SCH ×2 (13:24→23:59)
[2023-11-28] MEDS: THERAHONEY GEL 42.5 GM TP SCH (13:24)
[2023-11-28] MEDS: ALGINATE ROPE MC SCH (13:25)
[2023-11-29] VITALS (35 sets, daily range): BP systolic 99–135; BP diastolic 50–94; PULSE 72–98; RESP 14–28; TEMP 97.5–100.9; O2SAT 92–100
[2023-11-29] MEDS: BLOOD GLUCOSE MONITORING 1 DEV DEV FS SCH ×4 (00:06→17:48)
[2023-11-29] MEDS: GAUZE TP SCH ×2 (01:30→13:11)
[2023-11-29] MEDS: HYDRAGUARD CREAM TP SCH ×2 (02:23→13:13)
[2023-11-29 05:32] LABS: BASOPHILS % (AUTO) 0.7 % (0.0-2.0); EOSINOPHILS # (AUTO) 0.2 K/uL (0-0.4); EOSINOPHILS % (AUTO) 2.9 % (0.0-4.0); HEMATOCRIT 24.2 % (36-52); HEMOGLOBIN 7.8 g/dL (12.0-18.0); LYMPHOCYTES # (AUTO) 0.5 K/uL (2.0-11.5); LYMPHOCYTES % (AUTO) 8.3 % (20.5-51.1); MEAN CORPUSCULAR HEMOGLOBIN 26 pg (27-31); MEAN CORPUSCULAR HGB CONC 32 g/dL (33-37); MEAN CORPUSCULAR VOLUME 81.5 fL (80-94); MONOCYTES # (AUTO) 0.9 K/uL (0.8-1.0); MONOCYTES % (AUTO) 15.7 % (1.7-9.3); NEUTROPHILS # (AUTO) 4.3 K/uL (1.8-7.7); NEUTROPHILS % (AUTO) 72.4 % (42.2-75.2); PLATELET COUNT (AUTO) 130 K/uL (140-450); RED BLOOD CELL COUNT(AUTO) 2.97 MIL/uL (4.20-6.10); RED CELL DISTRIBUTION WIDTH 18.9 % (11.6-13.7); WHITE BLOOD COUNT (AUTO) 5.9 K/uL (4.8-10.8)
[2023-11-29 06:25] LABS: ALBUMIN 1.6 g/dL (3.4-5.0); ANION GAP 12.7 (8-16); CALCIUM 10.3 mg/dL (8.5-10.1); CREATININE 1.6 mg/dL (0.6-1.3); TOTAL BILIRUBIN 0.5 mg/dL (0.0-1.0); TOTAL PROTEIN, SERUM 6.9 g/dL (6.4-8.2)
[2023-11-29 06:48] LABS: POTASSIUM 2.7 mmol/L (3.5-5.1)
[2023-11-29] MEDS: MIDODRINE 5 MG TAB GT SCH ×3 (06:53→18:51)
[2023-11-29] MEDS ORDERED: KCL 20 MEQ IN 100 mL PREMIX 200 ML IV ONE ×2 (06:55→09:42)
[2023-11-29] MEDS: levETIRAcetam 100 MG/ML ORASYR GT SCH (08:50)
[2023-11-29] MEDS: POLYETHYLENE GLYCOL 17 GM/PKT GT SCH (08:50)
[2023-11-29] MEDS: BACLOFEN 10 MG TAB GT SCH ×2 (08:50→21:18)
[2023-11-29] MEDS: ASCORBIC ACID 500 MG TAB GT SCH (08:50)
[2023-11-29] MEDS: DOCUSATE 100 MG/10 ML UDC GT SCH ×2 (08:50→21:17)
[2023-11-29] MEDS: LACTULOSE 20 GM/30 ML UDC PEG SCH (08:51)
[2023-11-29] MEDS: PANTOPRAZOLE 40 MG INJ VIAL IVP SCH ×2 (08:51→21:18)
[2023-11-29] MEDS: CIPROFLOXACIN 250 MG TAB GT SCH ×2 (08:52→21:18)
[2023-11-29] MEDS ORDERED: NOREPINEPHRINE 4 MG/4 ML VIAL IV ONE ×2 (09:34)
[2023-11-29] MEDS: NOREPINEPHRINE 4 MG in DEXTROSE 5% 250 ML IV PRN (09:36)
[2023-11-29] MEDS: ACETAMINOPHEN 325 MG TAB PO PRN ×2 (11:17→17:40)
[2023-11-29] MEDS: NACL 0.9% 1,000 ML IV SCH (12:34)
[2023-11-29] MEDS: INSULIN LISPRO SLIDING SCALE 100 UNITS/ML VIAL SUBQ SCH ×2 (12:41→17:49)
[2023-11-29] MEDS: ALGINATE ROPE MC SCH (13:00)
[2023-11-29] MEDS: Z-GUARD PASTE TP SCH ×2 (13:11→18:30)
[2023-11-29] MEDS: THERAHONEY GEL 42.5 GM TP SCH (13:12)
[2023-11-30] VITALS (44 sets, daily range): BP systolic 76–124; BP diastolic 26–76; PULSE 69–162; RESP 25–56; TEMP 98.3–103.4; O2SAT 86–100
[2023-11-30] MEDS: BLOOD GLUCOSE MONITORING 1 DEV DEV FS SCH ×4 (00:40→17:55)
[2023-11-30] MEDS ORDERED: PIPERACILLIN/TAZOBACTAM 3.375 GM VIAL IV ONE ×2 (00:42→06:49)
[2023-11-30] MEDS: PIPERACILLIN/TAZOBACTAM 3.375 GM in DEXTROSE 5% 50 ML IV SCH ×3 (00:44→11:52)
[2023-11-30] MEDS: NOREPINEPHRINE 4 MG in DEXTROSE 5% 250 ML IV PRN (00:50)
[2023-11-30] MEDS: GAUZE TP SCH ×2 (00:52→13:08)
[2023-11-30] MEDS: HYDRAGUARD CREAM TP SCH ×2 (00:53→13:08)
[2023-11-30] MEDS: NACL 0.9% 1,000 ML IV SCH (04:10)
[2023-11-30] MEDS: INSULIN LISPRO SLIDING SCALE 100 UNITS/ML VIAL SUBQ SCH ×4 (06:00→17:57)
[2023-11-30 06:09] LABS: BASOPHILS % (AUTO) 0.5 % (0.0-2.0); EOSINOPHILS # (AUTO) 0.2 K/uL (0-0.4); HEMATOCRIT 27.1 % (36-52); HEMOGLOBIN 8.7 g/dL (12.0-18.0); LYMPHOCYTES # (AUTO) 0.6 K/uL (2.0-11.5); LYMPHOCYTES % (AUTO) 9.6 % (20.5-51.1); MEAN CORPUSCULAR HEMOGLOBIN 26 pg (27-31); MEAN CORPUSCULAR HGB CONC 32 g/dL (33-37); MEAN CORPUSCULAR VOLUME 81.2 fL (80-94); MONOCYTES % (AUTO) 16.6 % (1.7-9.3); NEUTROPHILS # (AUTO) 4.1 K/uL (1.8-7.7); NEUTROPHILS % (AUTO) 70.3 % (42.2-75.2); PLATELET COUNT (AUTO) 111 K/uL (140-450); RED BLOOD CELL COUNT(AUTO) 3.34 MIL/uL (4.20-6.10); WHITE BLOOD COUNT (AUTO) 5.8 K/uL (4.8-10.8)
[2023-11-30] MEDS: MIDODRINE 5 MG TAB GT SCH ×3 (06:45→18:40)
[2023-11-30 06:50] LABS: ALBUMIN 1.8 g/dL (3.4-5.0); ANION GAP 14.2 (8-16); CALCIUM 10.6 mg/dL (8.5-10.1); CARBON DIOXIDE 25.7 mmol/L (21-32); CREATININE 1.4 mg/dL (0.6-1.3); TOTAL BILIRUBIN 0.6 mg/dL (0.0-1.0); TOTAL PROTEIN, SERUM 7.4 g/dL (6.4-8.2)
[2023-11-30 06:52] LABS: POTASSIUM 2.9 mmol/L (3.5-5.1)
[2023-11-30] MEDS ORDERED: LORazepam 2 MG/ML VIAL IVP PRN (08:20)
[2023-11-30] MEDS ORDERED: METOPROLOL 5 MG/5 ML VIAL IV ONE (08:25)
[2023-11-30] MEDS ORDERED: METOPROLOL 5 MG/5 ML VIAL ONE ×2 (08:31)
[2023-11-30] MEDS ORDERED: LEVALBUTEROL 1.25 MG/0.5 ML NEBU INH SCH (08:35)
[2023-11-30] MEDS ORDERED: NACL 0.9% 1,000 ML IV ONE ×2 (08:40→11:05)
[2023-11-30] MEDS ORDERED: VANCOMYCIN PER PHARMACY MC PRN (08:40)
[2023-11-30] MEDS ORDERED: KCL 20 MEQ IN 100 mL PREMIX 100 ML IV SCH ×2 (08:45→13:05)
[2023-11-30] MEDS ORDERED: LEVALBUTEROL 1.25 MG/0.5 ML NEBU INH ONE ×6 (08:46→16:54)
[2023-11-30] MEDS ORDERED: PHENYLEPHRINE 10 MG/ML VIAL ONE ×4 (08:48→18:59)
[2023-11-30] MEDS: LACTULOSE 20 GM/30 ML UDC PEG SCH (09:00)
[2023-11-30] MEDS: DOCUSATE 100 MG/10 ML UDC GT SCH ×2 (09:00→20:42)
[2023-11-30] MEDS: POLYETHYLENE GLYCOL 17 GM/PKT GT SCH (09:00)
[2023-11-30] MEDS ORDERED: MIDAZOLAM 2 MG/2 ML VIAL ONE ×2 (09:06)
[2023-11-30] MEDS ORDERED: MIDAZOLAM 5 MG/5 ML VIAL IV ONE (09:10)
[2023-11-30] MEDS ORDERED: MIDAZOLAM MDV 50 MG in NACL 0.9% 40 ML IV PRN (09:10)
[2023-11-30] MEDS ORDERED: fentaNYL citrate 1 MG in NACL 0.9% 80 ML IV PRN (09:10)
[2023-11-30] MEDS ORDERED: ALBUMIN HUMAN 5 % 250 ML IV SCH (09:35)
[2023-11-30] MEDS: PHENYLEPHRINE 100 MG in NACL 0.9% 250 ML IV PRN ×3 (09:36→22:57)
[2023-11-30] MEDS ORDERED: MIDAZOLAM MDV 50 MG/10 ML VIAL IV ONE ×2 (10:11)
[2023-11-30 10:30] LABS: LACTIC ACID 3.5 mmol/L (0.4-2.0)
[2023-11-30] MEDS: BACLOFEN 10 MG TAB GT SCH ×2 (10:56→20:42)
[2023-11-30] MEDS: CIPROFLOXACIN 250 MG TAB GT SCH (10:56)
[2023-11-30] MEDS: levETIRAcetam 100 MG/ML ORASYR GT SCH (10:56)
[2023-11-30] MEDS: SCOPOLAMINE 1.5 MG/72 HR PATCH TD SCH (10:57)
[2023-11-30] MEDS: PANTOPRAZOLE 40 MG INJ VIAL IVP SCH ×2 (10:57→20:43)
[2023-11-30] MEDS: ASCORBIC ACID 500 MG TAB GT SCH (10:57)
[2023-11-30] MEDS ORDERED: VANCOMYCIN 1,000 MG in DEXTROSE 5% 250 ML IV SCH (11:00)
[2023-11-30] MEDS ORDERED: VASOPRESSIN 20 UNITS/ML VIAL ONE ×2 (11:10)
[2023-11-30 11:25] LABS: BLOOD GAS BASE EXCESS -5.6 mmol/L (-2.0-2.0); BLOOD GAS HCO3 19.2 mmol/L (22-26); BLOOD GAS PCO2 34.7 mmHg (35-45); BLOOD GAS PO2 88.2 mmHg (75-100)
[2023-11-30 11:26] LABS: BLOOD GAS O2 SAT% 96.5 % (92.0-98.5)
[2023-11-30] MEDS: VASOPRESSIN 40 UNITS in NACL 0.9% 250 ML IV PRN (11:30)
[2023-11-30] MEDS ORDERED: SODIUM BICARBONATE 8.4% PFS 50 MEQ/50 ML SYR IVP SCH (13:00)
[2023-11-30] MEDS ORDERED: DILTIAZEM 25 MG/5 ML VIAL IVP SCH (13:00)
[2023-11-30] MEDS ORDERED: SODIUM BICARBONATE 8.4% PFS 50 MEQ/50 ML SYR IVP ONE ×2 (13:07)
[2023-11-30] MEDS: ALGINATE ROPE MC SCH (13:08)
[2023-11-30] MEDS: THERAHONEY GEL 42.5 GM TP SCH (13:09)
[2023-11-30] MEDS: ACETAMINOPHEN 325 MG TAB PO PRN ×2 (13:14→20:43)
[2023-11-30] MEDS ORDERED: CALCIUM GLUCONATE 10% 1,000 MG in NACL 0.9% 50 ML IV SCH (13:20)
[2023-11-30] MEDS ORDERED: KCL 20 MEQ IN 100 mL PREMIX 100 ML IV ONE (13:41)
[2023-11-30] MEDS ORDERED: NACL 0.9% 500 ML IV ONE ×3 (13:55→15:00)
[2023-11-30] MEDS: SODIUM BICARBONATE 8.4% 100 MEQ in NACL 0.45% 1,000 ML IV SCH (15:47)
[2023-11-30] MEDS ORDERED: TOBRAMYCIN PER PHARMACY MC PRN (15:50)
[2023-11-30] MEDS ORDERED: TOBRAMYCIN 300 MG in DEXTROSE 5% 100 ML IV SCH (17:00)
[2023-11-30] MEDS ORDERED: LINEZOLID 600MG PREMIX 300 ML IV ONE ×2 (20:47)
[2023-11-30] MEDS: LINEZOLID 600MG PREMIX 300 ML IV SCH (20:52)
[2023-11-30] MEDS: MEROPENEM 1,000 MG in NACL 0.9% 50 ML IV SCH (20:53)
[2023-12-01] VITALS (41 sets, daily range): BP systolic 0–97; BP diastolic 0–69; PULSE 0–140; RESP 0–53; TEMP 97.7–103.3; O2SAT 93–100
[2023-12-01] MEDS: BLOOD GLUCOSE MONITORING 1 DEV DEV FS SCH ×3 (00:08→12:28)
[2023-12-01] MEDS: INSULIN LISPRO SLIDING SCALE 100 UNITS/ML VIAL SUBQ SCH ×3 (00:12→12:31)
[2023-12-01] MEDS: HYDRAGUARD CREAM TP SCH ×2 (00:14→12:32)
[2023-12-01] MEDS: GAUZE TP SCH ×2 (00:15→12:32)
[2023-12-01] MEDS ORDERED: NOREPINEPHRINE 4 MG/4 ML VIAL IV ONE ×2 (04:59)
[2023-12-01] MEDS: NOREPINEPHRINE 8 MG in DEXTROSE 5% 250 ML IV PRN ×3 (05:17→14:30)
[2023-12-01] MEDS: MEROPENEM 1,000 MG in NACL 0.9% 50 ML IV SCH ×2 (05:18→12:42)
[2023-12-01] MEDS ORDERED: PHENYLEPHRINE 10 MG/ML VIAL ONE ×2 (05:29→05:34)
[2023-12-01 05:38] LABS: BASOPHILS # (AUTO) 0.1 K/uL (0.00-0.22); BASOPHILS % (AUTO) 0.4 % (0.0-2.0); EOSINOPHILS % (AUTO) 0.1 % (0.0-4.0); HEMATOCRIT 35.7 % (36-52); HEMOGLOBIN 10.9 g/dL (12.0-18.0); LYMPHOCYTES # (AUTO) 1.5 K/uL (2.0-11.5); LYMPHOCYTES % (AUTO) 7.1 % (20.5-51.1); MEAN CORPUSCULAR HEMOGLOBIN 25 pg (27-31); MEAN CORPUSCULAR HGB CONC 31 g/dL (33-37); MONOCYTES # (AUTO) 3.3 K/uL (0.8-1.0); MONOCYTES % (AUTO) 15.7 % (1.7-9.3); NEUTROPHILS % (AUTO) 76.7 % (42.2-75.2); PLATELET COUNT (AUTO) 165 K/uL (140-450); WHITE BLOOD COUNT (AUTO) 20.9 K/uL (4.8-10.8)
[2023-12-01 05:51] LABS: ALBUMIN 1.7 g/dL (3.4-5.0); CALCIUM 9.8 mg/dL (8.5-10.1); CARBON DIOXIDE 23.2 mmol/L (21-32); CREATININE 2.5 mg/dL (0.6-1.3); POTASSIUM 4.2 mmol/L (3.5-5.1); TOTAL BILIRUBIN 0.3 mg/dL (0.0-1.0); TOTAL PROTEIN, SERUM 6.7 g/dL (6.4-8.2)
[2023-12-01] MEDS: PHENYLEPHRINE 100 MG in NACL 0.9% 250 ML IV PRN ×3 (06:07→14:36)
[2023-12-01] MEDS: MIDODRINE 5 MG TAB GT SCH ×2 (06:30→12:39)
[2023-12-01] MEDS: SODIUM BICARBONATE 8.4% 100 MEQ in NACL 0.45% 1,000 ML IV SCH (07:50)
[2023-12-01] MEDS: DOCUSATE 100 MG/10 ML UDC GT SCH (09:00)
[2023-12-01] MEDS: POLYETHYLENE GLYCOL 17 GM/PKT GT SCH (09:00)
[2023-12-01] MEDS: LACTULOSE 20 GM/30 ML UDC PEG SCH (09:00)
[2023-12-01] MEDS: VASOPRESSIN 40 UNITS in NACL 0.9% 250 ML IV PRN (09:18)
[2023-12-01] MEDS: ASCORBIC ACID 500 MG TAB GT SCH (09:57)
[2023-12-01] MEDS: BACLOFEN 10 MG TAB GT SCH (09:57)
[2023-12-01] MEDS: PANTOPRAZOLE 40 MG INJ VIAL IVP SCH (09:57)
[2023-12-01] MEDS: levETIRAcetam 100 MG/ML ORASYR GT SCH (09:57)
[2023-12-01] MEDS ORDERED: LINEZOLID 600MG PREMIX 300 ML IV ONE ×2 (10:03)
[2023-12-01] MEDS: LINEZOLID 600MG PREMIX 300 ML IV SCH (10:03)
[2023-12-01] MEDS ORDERED: ACETAMINOPHEN 650 MG/20.3 ML UDC ONE ×2 (10:03)
[2023-12-01] MEDS: ACETAMINOPHEN 325 MG TAB PO PRN (10:10)
[2023-12-01] MEDS: ALGINATE ROPE MC SCH (12:32)
[2023-12-01] MEDS: THERAHONEY GEL 42.5 GM TP SCH (12:33)
[2023-12-01] MEDS: Z-GUARD PASTE TP SCH (12:33)
[2023-12-01] MEDS ORDERED: ACETAMINOPHEN 650 MG/20.3 ML UDC PO PRN (12:35)
[2023-12-01] MEDS ORDERED: MORPHINE SULFATE 50 MG in NACL 0.9% 45 ML IV PRN ×2 (16:25→16:45)
== END 2023-12-01 18:15 | DRG 870 ==
LOC: MED 22:17 → MMU 11-26 00:17 → MIC 11-26 00:17
PROVIDERS: ADMIT Student in an Organized Health Care Education/Training Program; ATTEND Student in an Organized Health Care Education/Training Program
PROC: 30233N1 Transfusion of Nonautologous Red Blood Cells into Peripheral Vein, Percutaneous Approach (ICD-10-PCS; principal; 2023-11-25)
PROC: 5A1955Z Respiratory Ventilation, Greater than 96 Consecutive Hours (ICD-10-PCS; 2023-11-25)
PROC: 0BH17EZ Insertion of Endotracheal Airway into Trachea, Via Natural or Artificial Opening (ICD-10-PCS; 2023-11-25)
DX: A41.9 Sepsis, unspecified organism (principal); E43 Unspecified severe protein-calorie malnutrition; G82.50 Quadriplegia, unspecified; L89.893 Pressure ulcer of other site, stage 3; J18.9 Pneumonia, unspecified organism; N17.9 Acute kidney failure, unspecified; N39.0 Urinary tract infection, site not specified; K92.2 Gastrointestinal hemorrhage, unspecified; Z20.822 Contact with and (suspected) exposure to COVID-19; R65.20 Severe sepsis without septic shock; B96.5 Pseudomonas (aeruginosa) (mallei) (pseudomallei) as the cause of diseases classified elsewhere; D64.9 Anemia, unspecified; E11.9 Type 2 diabetes mellitus without complications; G40.909 Epilepsy, unspecified, not intractable, without status epilepticus; E83.52 Hypercalcemia; G47.33 Obstructive sleep apnea (adult) (pediatric); I10 Essential (primary) hypertension; J40 Bronchitis, not specified as acute or chronic; Z86.73 Personal history of transient ischemic attack (TIA), and cerebral infarction without residual deficits; Z93.1 Gastrostomy status; Z68.39 Body mass index [BMI] 39.0-39.9, adult
CPT/HCPCS: 36415; 36430; 36600; 71045; 80048; 80053; 80076; 80200; 80202; 81001; 82550; 82553; 82803; 82948; 83605; 83880; 83970; 84484; 85025; 85610; 85730; 86886; 86900; 86901; 86920; 87040; 87070; 87075; 87081; 87086; 87186; 87205; 89220; 93005; 94002; 94003; 94640; 96361; 96365; 96366; 99291; C9113; J0610; J2020; J2185; J2250; J2270; J2370; J2543; J3010; J3260; J3370; J3372; J3480; J3490; J7030; J7060; J7612; P9016; P9041; Q9967